=== PATIENT | male | born 1945 | race Caucasian/White ===

== ENCOUNTER → 2017-12-10 11:47 | Outpatient (BNVA) | payer OTHER, SELFPAY | PROVIDERS: PCP Family Medicine; Visit Provider Student in an Organized Health Care Education/Training Program | DX: I21.4 Non-ST elevation (NSTEMI) myocardial infarction (principal); F14.988 Cocaine use, unspecified with other cocaine-induced disorder; E11.9 Type 2 diabetes mellitus without complications; Z87.891 Personal history of nicotine dependence | CPT/HCPCS: 99213 ==

== ENCOUNTER 2017-12-16 00:44 | Outpatient (CLI) | payer OTHER, SELFPAY ==
--- NOTE | 2017-12-16 07:36 | DI.US_ITS ---
SYMPTOM/DIAGNOSIS: FORMER SMOKER, CAD, SCREENING FOR AAA, Z87.891, I25.10, Z13.6 AORTA ULTRASOUND: The maximal AP diameter of the aorta superiorly is 2.9 cm. and the transverse diameter is 2.9 cm. superiorly. The right iliac artery has an AP diameter of 1.2 cm. and a transverse diameter of 1.4 cm. The proximal left internal iliac artery has an AP diameter of 1.5 cm. and a transverse diameter of 1.2 cm. SUMMARY: There is no evidence of an aortic aneurysm.
== END 2017-12-16 01:04 ==
PROVIDERS: PCP Family Medicine; Visit Provider Student in an Organized Health Care Education/Training Program
DX: I25.10 Atherosclerotic heart disease of native coronary artery without angina pectoris (principal); Z13.6 Encounter for screening for cardiovascular disorders; Z87.891 Personal history of nicotine dependence
CPT/HCPCS: 76706

== ENCOUNTER 2018-02-26 16:14 | Outpatient (CLI) | payer OTHER, SELFPAY ==
--- NOTE | 2018-02-26 14:52 | DI.RAD_ITS ---
SYMPTOMS/DIAGNOSIS: COUGH, R05 PA AND LATERAL CHEST: The heart is not enlarged. The lungs appear clear. Diaphragm is elevated on the left, unchanged from 09/18/17. No pleural effusions seen. CONCLUSION: No evidence of acute disease.
== END 2018-02-26 16:34 ==
PROVIDERS: PCP Family Medicine; Visit Provider Nurse Practitioner
DX: R05 Cough (principal)
CPT/HCPCS: 71046

== ENCOUNTER 2018-04-22 11:19 | Outpatient (CLI) | payer OTHER, SELFPAY ==
--- NOTE | 2018-04-22 11:10 | DI.RAD_ITS ---
SYMPTOMS/DIAGNOSIS: PAIN BILATERAL KNEES: RIGHT KNEE: Medial and lateral compartment joint space narrowing, articular sclerosis, and periarticular hypertrophic spurring and evidence of chondrocalcinosis are seen. There is also prominent spurring involving the patellofemoral joint. There may be a very small joint effusion. SUMMARY: Severe DJD, right knee. LEFT KNEE: Severe DJD is demonstrated with marked narrowing of the medial joint compartment. There is articular sclerosis, and periarticular hypertrophic spurring and evidence of chondrocalcinosis. Also, prominent patellofemoral joint spurring is identified. Small calcifications superior to the patella on the left side could represent joint mice. SUMMARY: Severe DJD involving the left knee is identified.
== END 2018-04-22 11:39 ==
PROVIDERS: PCP Family Medicine; Referring Provider Family Medicine; Visit Provider Orthopaedic Surgery
DX: M25.561 Pain in right knee (principal); M25.562 Pain in left knee; M17.0 Bilateral primary osteoarthritis of knee
CPT/HCPCS: 20610; 99201; 99214; 73560; J1040

== ENCOUNTER → 2018-07-15 09:49 | Outpatient (BNVA) | payer OTHER, SELFPAY | PROVIDERS: PCP Family Medicine; Referring Provider Family Medicine; Visit Provider Orthopaedic Surgery | DX: M17.0 Bilateral primary osteoarthritis of knee (principal) | CPT/HCPCS: 99212; 99213 ==

== ENCOUNTER 2018-07-20 11:47 | Outpatient (REF) | payer OTHER, SELFPAY ==
[2018-07-20 18:45] LABS: Anion Gap 12.1 mmol/L (3-11); BUN 24 mg/dL (7-18); CO2 25.9 mmol/L (21.0-32.0); CREATININE 1.22 mg/dL (0.70-1.30); Calcium 9.9 mg/dL (8.5-10.1); Chloride 101 mmol/L (98-107); Estimated GFR 58.23 (mL/min/1.73m2); Glucose 51 mg/dL (70-100); Potassium 5.1 mmol/L (3.5-5.1); Sodium 139 mmol/L (136-145); TSH (W/Ref FT4) 3.04 uIU/mL (0.358-3.74)
== END 2018-07-20 12:07 ==
LOC: NCHCN 11:47
PROVIDERS: PCP Family Medicine; Visit Provider Family Medicine
DX: E11.21 Type 2 diabetes mellitus with diabetic nephropathy (principal); R94.6 Abnormal results of thyroid function studies
CPT/HCPCS: 80048; 84443

== ENCOUNTER 2018-08-09 11:09 | Emergency (ER) | payer OTHER, SELFPAY ==
[2018-08-09 11:15] VITALS: BP 154/73; PULSE 86; RESP 14; TEMP 36.5; O2SAT 97
--- NOTE | 2018-08-09 11:21 | DI.RAD_ITS ---
SYMPTOMS/DIAGNOSIS: POSSIBLE DISLOCATION LEFT SHOULDER: There are degenerative changes at the AC joint as well as spurring at the tip of the acromion. Degenerative changes are also noted at the glenohumeral joint. There is no evidence of fracture or dislocation. IMPRESSION: Degenerative changes. No acute abnormality.
--- NOTE | 2018-08-09 11:52 | W.ED.GENAD ---
Discharge Plan Disposition Patient Disposition: HOME Condition: Stable Discharge Details Chief Complaint: Orthopedic Clinical Impression: Rotator cuff injury, Shoulder pain Primary Care Provider: Simone Ratliff ED Provider: Jamel Jacobs Home Meds and New Rx's Prescriptions: No Action Bydureon BCise 2 mg/0.85 mL auto-injector 2 mg SC Q7D RF: 0 Spiriva with HandiHaler 18 mcg capsule, w/inhalation device 1 cap IH DAILY RF: 0 albuterol sulfate [ProAir HFA] 90 mcg/actuation HFA aerosol inhaler 2 puff IH Q6H PRNRF: 0 meloxicam [Mobic] 15 mg tablet 15 mg PO DAILY RF: 0 atorvastatin [Lipitor] 80 MG tablet 80 mg PO HS RF: 0 nitroglycerin [Nitrostat] 0.3 MG tablet, sublingual 0.3 mg Sublingual ONCE RF: 0 OneTouch Ultra Test 1 EACH strip 1 ea Miscellaneous DAILY RF: 0 aspirin 81 MG tablet,chewable 81 mg PO DAILY RF: 0 zolpidem 5 MG tablet 5 mg PO HS RF: 0 mirtazapine 15 MG tablet 15 mg PO HS RF: 0 NovoFine 30 1 EACH needle 1 ea Miscellaneous HS RF: 0 OneTouch Ultra Test 1 EACH strip 1 ea Miscellaneous RF: 0 lisinopril 2.5 mg tablet 5 mg PO DAILY RF: 0 venlafaxine 75 MG tablet 75 mg PO BID RF: 0 metformin [Glucophage] 1,000 MG tablet 1,000 mg PO BID RF: 0 glipizide 5 mg tablet 10 mg PO DAILY RF: 0 Levemir FlexTouch U-100 Insuln 100 unit/mL (3 mL) insulin pen 25 unit IJ DAILY RF: 0 Discharge Instructions Instructions: Shoulder Pain (ED) Additional Instructions: Please follow-up with your orthopedic doctor early this week return to the emergency department for weakness or increasing pain Referrals: Calvin Malcolm MD [ [facility] STAFF PHYSICIAN] - Medical Decision Making 72-year-old male with shoulder pain concerning for partial biceps tendon rupture versus rotator cuff tear. X-ray reviewed by me no fracture no dislocation. Will await for radiology read treat pain [id number] patient will follow-up with orthopedics in the next few days. HPI 72-year-old male past medical history of diabetes hypertension hyperlipidemia osteoarthritis presents with acute onset left shoulder pain while lifting up a wheelbarrow to dump it.patient has pain to his anterior glenoid and can only move his arm passively cannot actually flex his biceps or abducts or flex his shoulder.no fall no head injury no other trauma no previous injury to this shoulder. Past medical history of biceps tendon rupture on the right side pain is sharp acute radiating to his shoulder worse with active motion and abduction.no shortness of breath chest pain nausea vomiting diarrhea fever chills loss of consciousness or other complaint General Date/Time Provider Initiated Documentation: 08/09/18 11:21. Related Data Home Medications Medication Instructions Recorded Confirmed metformin [Glucophage] 1,000 mg PO BID 09/19/16 07/15/18 venlafaxine 75 mg PO BID 09/19/16 07/15/18 aspirin 81 mg PO DAILY tab-cap 01/22/17 07/15/18 atorvastatin [Lipitor] 80 mg PO HS tab-cap 01/22/17 07/15/18 blood sugar diagnostic [Onetouch strip 01/22/17 07/15/18 Ultra Test Strips] blood sugar diagnostic [Onetouch strip 01/22/17 07/15/18 Ultra Test Strips] mirtazapine 15 mg PO HS tab-cap 01/22/17 07/15/18 nitroglycerin [Nitrostat] 0.3 mg SUBLINGUAL ONCE tab-cap 01/22/17 07/15/18 pen needle, diabetic [Novofine] 01/22/17 07/15/18 zolpidem 5 mg PO HS 01/22/17 07/15/18 albuterol sulfate HFA 90 2 puff IH Q6H PRN 04/23/18 07/15/18 mcg/actuation aerosol inhaler exenatide ER 2 mg/0.85 mL 2 mg SC Q7D 04/23/18 07/15/18 subcutaneous auto-injector glipizide 5 mg tablet 10 mg PO DAILY tab 04/23/18 07/15/18 insulin detemir (U-100) 100 25 unit IJ DAILY ml 04/23/18 07/15/18 unit/mL (3 mL) subcutaneous pen lisinopril 2.5 mg tablet 5 mg PO DAILY tab-cap 04/23/18 07/15/18 tiotropium bromide 18 mcg capsule 1 cap IH DAILY 04/23/18 07/15/18 with inhalation device meloxicam 15 mg tablet 15 mg PO DAILY 07/15/18 07/15/18 Allergies Allergy/AdvReac Type Severity Reaction Status Date / Time No Known Allergies Allergy Unverified 08/09/18 11:17 General Stated Complaint: Orthopedic LOCO: 3 Review of Systems Review of Systems All systems reviewed & are unremarkable except as noted in HPI and below PFSH Surgical History Repair of inguinal hernia (02/25/17) Social History Smoking/Tobacco Use Status: Former Tobacco Use Drug use: Current Sobriety Do you feel safe at home: Yes Do you feel safe in your relationship?: Yes Exam Narrative Exam Narrative: Pulse oximetry reviewed by me and is normal [] Constitutional: Pt is in no acute distress. he is well appearing. he oriented to person, place, and time. Eyes: conjunctivae are normal. Pupils are equal, round, and reactive to light. No scleral icterus. extraocular muscles are intact Ears/Nose/Mouth/Throat: mucus membranes are moist. Musculoskeletal: neck is supple. normal range of motion in all extremities except for left shoulder patient unable to fully flex bicep or abductor or flex left shoulder. Normal distal neurovascular exam mild tenderness over anterior glenoid fossa. No deformity no crepitus. Cardiovascular: Normal rate and rhythm. No lower extremity edema [] Respiratory: effort is normal . pt exhibits no stridor or respiratory distress. [] GastrointestinaI: abdomen soft, +BS, nontender, -rebound, -guarding. Neurological: alert and oriented to person, place, and time. he has normal strength, no tremor. Skin: Skin is warm and dry. he is not diaphoretic. Distal perfusion in tact, warm extremities, cap refill ? 2 seconds. Hem/Lymph/Imm: No cervical LAD, no goiter, no conjunctival pallor Psych: normal mood and affect. behavior is normal Triage and nurse notes reviewed.[] Course Vital Signs Temperature 36.5 C 08/09/18 11:15 Pulse 86 08/09/18 11:15 Respiratory Rate 14 08/09/18 11:15 Blood Pressure 154/73 H 08/09/18 11:15 Pulse Oximetry 97 08/09/18 11:15 Temperature 36.5 C 08/09/18 11:15 Temperature Source Temporal Artery Scan 08/09/18 11:15 Pulse 86 08/09/18 11:15 Respiratory Rate 14 08/09/18 11:15 Respiratory Effort Non-Labored 08/09/18 11:16 Blood Pressure 154/73 H 08/09/18 11:15 Blood Pressure Position Sitting 08/09/18 11:15 Pulse Oximetry 97 08/09/18 11:15 Oxygen Delivery Method Room Air 08/09/18 11:15 Oxygen Flow Rate 0 08/09/18 11:15 Pain Level 8 08/09/18 11:15
--- NOTE | 2018-08-09 11:56 | ED.GENADUL_ITS ---
Discharge Plan Disposition Patient Disposition: HOME Condition: Stable Discharge Details Chief Complaint: Orthopedic Clinical Impression: Rotator cuff injury, Shoulder pain Primary Care Provider: Simone Ratliff ED Provider: Jamel Jacobs Home Meds and New Rx's Prescriptions: No Action Bydureon BCise 2 mg/0.85 mL auto-injector 2 mg SC Q7D RF: 0 Spiriva with HandiHaler 18 mcg capsule, w/inhalation device 1 cap IH DAILY RF: 0 albuterol sulfate [ProAir HFA] 90 mcg/actuation HFA aerosol inhaler 2 puff IH Q6H PRNRF: 0 meloxicam [Mobic] 15 mg tablet 15 mg PO DAILY RF: 0 atorvastatin [Lipitor] 80 MG tablet 80 mg PO HS RF: 0 nitroglycerin [Nitrostat] 0.3 MG tablet, sublingual 0.3 mg Sublingual ONCE RF: 0 OneTouch Ultra Test 1 EACH strip 1 ea Miscellaneous DAILY RF: 0 aspirin 81 MG tablet,chewable 81 mg PO DAILY RF: 0 zolpidem 5 MG tablet 5 mg PO HS RF: 0 mirtazapine 15 MG tablet 15 mg PO HS RF: 0 NovoFine 30 1 EACH needle 1 ea Miscellaneous HS RF: 0 OneTouch Ultra Test 1 EACH strip 1 ea Miscellaneous RF: 0 lisinopril 2.5 mg tablet 5 mg PO DAILY RF: 0 venlafaxine 75 MG tablet 75 mg PO BID RF: 0 metformin [Glucophage] 1,000 MG tablet 1,000 mg PO BID RF: 0 glipizide 5 mg tablet 10 mg PO DAILY RF: 0 Levemir FlexTouch U-100 Insuln 100 unit/mL (3 mL) insulin pen 25 unit IJ DAILY RF: 0 Discharge Instructions Instructions: Shoulder Pain (ED) Additional Instructions: Please follow-up with your orthopedic doctor early this week return to the emergency department for weakness or increasing pain Referrals: Calvin Malcolm MD [ [facility] STAFF PHYSICIAN] - Medical Decision Making 72-year-old male with shoulder pain concerning for partial biceps tendon rupture versus rotator cuff tear. X-ray reviewed by me no fracture no dislocation. Will await for radiology read treat pain [id number] patient will follow-up with orthopedics in the next few days. HPI 72-year-old male past medical history of diabetes hypertension hyperlipidemia osteoarthritis presents with acute onset left shoulder pain while lifting up a wheelbarrow to dump it.patient has pain to his anterior glenoid and can only move his arm passively cannot actually flex his biceps or abducts or flex his shoulder.no fall no head injury no other trauma no previous injury to this shoulder. Past medical history of biceps tendon rupture on the right side pain is sharp acute radiating to his shoulder worse with active motion and abdu ction.no shortness of breath chest pain nausea vomiting diarrhea fever chills loss of consciousness or other complaint General Date/Time Provider Initiated Documentation: 08/09/18 11:21 . Related Data Home Medications Medication Instructions Recorded Confirmed metformin [Glucophage] 1,000 mg PO BID 09/19/16 07/15/18 venlafaxine 75 mg PO BID 09/19/16 07/15/18 aspirin 81 mg PO DAILY tab-cap 01/22/17 07/15/18 atorvastatin [Lipitor] 80 mg PO HS tab-cap 01/22/17 07/15/18 blood sugar diagnostic [Onetouch strip 01/22/17 07/15/18 Ultra Test Strips] blood sugar diagnostic [Onetouch strip 01/22/17 07/15/18 Ultra Test Strips] mirtazapine 15 mg PO HS tab-cap 01/22/17 07/15/18 nitroglycerin [Nitrostat] 0.3 mg SUBLINGUAL ONCE tab-cap 01/22/17 07/15/18 pen needle, diabetic [Novofine] 01/22/17 07/15/18 zolpidem 5 mg PO HS 01/22/17 07/15/18 albuterol sulfate HFA 90 2 puff IH Q6H PRN 04/23/18 07/15/18 mcg/actuation aerosol inhaler exenatide ER 2 mg/0.85 mL 2 mg SC Q7D 04/23/18 07/15/18 subcutaneous auto-injector glipizide 5 mg tablet 10 mg PO DAILY tab 04/23/18 07/15/18 insulin detemir (U-100) 100 25 unit IJ DAILY ml 04/23/18 07/15/18 unit/mL (3 mL) subcutaneous pen lisinopril 2.5 mg tablet 5 mg PO DAILY tab-cap 04/23/18 07/15/18 tiotropium bromide 18 mcg capsule 1 cap IH DAILY 04/23/18 07/15/18 with inhalation device meloxicam 15 mg tablet 15 mg PO DAILY 07/15/18 07/15/18 Allergies Allergy/AdvReac Type Severity Reaction Status Date / Time No Known Allergies Allergy Unverified 08/09/18 11:17 General Stated Complaint: Orthopedic LOCO: 3 Review of Systems Review of Systems All systems reviewed & are unremarkable except as noted in HPI and below PFSH Surgical History Repair of inguinal hernia (02/25/17) Social History Smoking/Tobacco Use Status: Former Tobacco Use Drug use: Current Sobriety Do you feel safe at home: Yes Do you feel safe in your relationship?: Yes Exam Narrative Exam Narrative: Pulse oximetry reviewed by me and is normal [] Constitutional: Pt is in no acute distress. he is well appearing. he oriented to person, place, and time. Eyes: conjunctivae are normal. Pupils are equal, round, and reactive to light. No scleral icterus. extraocular muscles are intact Ears/Nose/Mouth/Throat: mucus membranes are moist. Musculoskeletal: neck is supple. normal range of motion in all extremities except for left shoulder patient unable to fully flex bicep or abductor or flex left shoulder. Normal distal neurovascular exam mild tenderness over anterior glenoid fossa. No deformity no crepitus. Cardiovascular: Normal rate and rhythm. No lower extremity edema [] Respiratory: effort is normal . pt exhibits no stridor or respiratory distress. [] GastrointestinaI: abdomen soft, +BS, nontender, -rebound, -guarding. Neurological: alert and oriented to person, place, and time. he has normal s trength, no tremor. Skin: Skin is warm and dry. he is not diaphoretic. Distal perfusion in tact, warm extremities, cap refill ? 2 seconds. Hem/Lymph/Imm: No cervical LAD, no goiter, no conjunctival pallor Psych: normal mood and affect. behavior is normal Triage and nurse notes reviewed.[] Course Vital Signs Temperature 36.5 C 08/09/18 11:15 Pulse 86 08/09/18 11:15 Respiratory Rate 14 08/09/18 11:15 Blood Pressure 154/73 H 05/12/19 11:15 Pulse Oximetry 97 08/09/18 11:15 Temperature 36.5 C 08/09/18 11:15 Temperature Source Temporal Artery Scan 08/09/18 11:15 Pulse 86 08/09/18 11:15 Respiratory Rate 14 08/09/18 11:15 Respiratory Effort Non-Labored 08/09/18 11:16 Blood Pressure 154/73 H 08/09/18 11:15 Blood Pressure Position Sitting 08/09/18 11:15 Pulse Oximetry 97 08/09/18 11:15 Oxygen Delivery Method Room Air 08/09/18 11:15 Oxygen Flow Rate 0 08/09/18 11:15 Pain Level 8 08/09/18 11:15
--- NOTE | 2018-08-09 12:15 | DI.VRAD_ITS ---
EXAM: XR Left Shoulder, Complete, 2 or More Views EXAM DATE/TIME: 08/09/2018 11:22 AM CLINICAL HISTORY: 72 years old, male; Left; Patient HX: Lifting injury, lt shoulder pain. ; Additional info: PT unable to do axillary view. TECHNIQUE: Imaging protocol: XR Left shoulder, complete 2 or more views. COMPARISON: No relevant prior studies available. FINDINGS: Bones/joints: Degenerative changes in the glenohumeral joint and acromioclavicular joint. There is no evidence of acute fracture.There is no evidence of malalignment or dislocation. Soft tissues: Normal. IMPRESSION: There is no evidence of acute fracture.There is no evidence of malalignment or dislocation. Dictated and Authenticated by: Shai Gonsales MD. Ordering:AMMON Mccullough MD
[2018-08-09 12:22] VITALS: BP 154/73; PULSE 86; RESP 14; TEMP 36.5; O2SAT 97
== END 2018-08-09 12:24 | disposition home or self-care (01) ==
PROVIDERS: Emergency Provider Emergency Medicine; PCP Family Medicine
DX: M75.102 Unspecified rotator cuff tear or rupture of left shoulder, not specified as traumatic (principal); X50.0XXA Overexertion from strenuous movement or load, initial encounter; E11.9 Type 2 diabetes mellitus without complications; I10 Essential (primary) hypertension; Z79.4 Long term (current) use of insulin
CPT/HCPCS: 99283; 73030; 99282; L3650

== ENCOUNTER → 2018-08-11 10:47 | Outpatient (BNVA) | payer OTHER, SELFPAY | PROVIDERS: PCP Family Medicine; Referring Provider Family Medicine; Visit Provider Orthopaedic Surgery | DX: S46.012A Strain of muscle(s) and tendon(s) of the rotator cuff of left shoulder, initial encounter (principal); M25.512 Pain in left shoulder; X50.0XXA Overexertion from strenuous movement or load, initial encounter | CPT/HCPCS: 20610; 99214; J1040 ==

== ENCOUNTER 2018-08-19 02:00 | Outpatient (CLI) | payer OTHER, SELFPAY ==
--- NOTE | 2018-08-19 14:00 | DI.MRI_ITS ---
SYMPTOM/DIAGNOSIS: LT SHOULDER INJURY, LT ROTATOR CUFF TEAR, PAIN, M75.102 LEFT SHOULDER MRI: Comparison is made with plain films dated 08/09/18. Proton density and fat suppressed T 2 axial and coronal and T 1 and fat suppressed T 2 sagittal sequences were performed. The exam is limited by patient motion. There is a full thickness tear of the supraspinatus tendon with retraction to the level of the AC joint. The humeral head is articulating with the undersurface of the acromion. There is muscle atrophy and some fatty infiltration of approximately 50%, consistent with a grade III Goutallier classification. There are degenerative changes at the AC joint as well as spurring at the tip of the acromion. The infraspinatus tendon also appears torn and retracted, also to the level of the AC joint. The teres minor,subscapularis and biceps tendons appear intact. The marrow signal appears normal. There is no significant joint effusion. IMPRESSION: Full thickness tears with retraction of the supraspinatus and infraspinatus tendons. There is muscle atrophy of the supraspinatus muscle.
== END 2018-08-19 02:20 ==
PROVIDERS: PCP Family Medicine; Visit Provider Physician Assistant
DX: M75.102 Unspecified rotator cuff tear or rupture of left shoulder, not specified as traumatic (principal); M25.512 Pain in left shoulder
CPT/HCPCS: 73221

== ENCOUNTER → 2018-08-25 09:46 | Outpatient (BNVA) | payer OTHER, SELFPAY | PROVIDERS: PCP Family Medicine; Referring Provider Family Medicine; Visit Provider Orthopaedic Surgery | DX: S46.012A Strain of muscle(s) and tendon(s) of the rotator cuff of left shoulder, initial encounter (principal); X50.0XXA Overexertion from strenuous movement or load, initial encounter; E11.42 Type 2 diabetes mellitus with diabetic polyneuropathy; Z79.4 Long term (current) use of insulin; J44.9 Chronic obstructive pulmonary disease, unspecified | CPT/HCPCS: 99212; 99213 ==

== ENCOUNTER 2018-09-01 07:54 | Outpatient (CLI) | payer OTHER, SELFPAY ==
--- NOTE | 2018-09-01 09:18 | W.PREOPHP ---
Assessment and Plan (1) Tear of left rotator cuff: Current visit: No Status: Acute Plan: Educated patient on surgery covering surgical technique, recovery process, benefits and risks including but not limited to risk of infection, blood clot, damage to soft tissue/blood vessels/nerves in detail. After discussion patient gives verbal understanding of risks and elects to proceed with scheduling surgery. Patient had opportunity to have questions answered to their satisfaction. They will contact office if issues arise. Patient will continue to be scheduled for left rotator cuff repair with Dr. Malcolm. Qualifiers: Rotator cuff tear extent: unspecified tear extent Rotator cuff tear trauma status: traumatic Encounter type: initial encounter Qualified Code(s): S46.012A - Strain of muscle(s) and tendon(s) of the rotator cuff of left shoulder, initial encounter History of Present Illness Narrative: Mr. Patterson is a 72-year-old [id number] male who presents to clinic for preoperative appointment for scheduled left rotator cuff repair with Dr. Malcolm on 09/07/2018. Patient has been seen in orthopedic clinic several times following his left shoulder injury on 08/09/2018. He describes injury as occurring when he emptied a wheelbarrow with both his arms up and away from body motion, while completing this motion he felt a pop within his left shoulder. Patient received a subacromial injection on 08/11/2018 which provided significant pain relief until approximately 1 week ago when he started to have recurrence of shoulder discomfort that radiated down his arm. In addition to redevelopment of discomfort he has continued to have notable weakness. Patient reports driving a car as he is unable to lift his arm to the top of the steering wheel. Patient reports he occasionally have a sharp intense pain on the anterior aspect of the shoulder but occurs suddenly with certain motions. Patient denies known aggravating factors. Although patient has continued to be active including raking in his garden he is been avoiding lifting activities with the left arm. Patient denies use of [id number] pain medications, heat/ice application or massage. Patient underwent MRI which showed full-thickness tear and retraction of supraspinatus and infraspinatus tendons as per Dr. aYp's note on 08/19/18. Due to patient's continued discomfort as well as pain Dr. Malcolm offered rotator cuff repair and patient elected to proceed with surgical intervention. Pertinent Surgical Information Review of patient's chart does show history of non-STEMI in the setting of cocaine use in 2017. Patient reports since that time he has not used cocaine. Review of patient's cardiology note with Dr. Mendez on 12/10/2017 describes patient's episode in 2017 as patient experienced near syncope after he smoked cocaine. Since that time cardiology note from visit on 12/10/2017 states that patient went under cardiac catheterization which showed moderate coronary artery disease and echo was normal. Dr. Mendez recommended patient continue with aspirin 81 mg and atorvastatin 80 mg as well as continue with regularly scheduled yearly cardiology follow-up. Patient denies any recurrence of cardiac symptoms including syncope, chest pain, rapid/slow/irregular heartbeat. Patient does have history of DVT following open left knee surgery as a young adult estimated around 1970s. Denies any additional DVT episodes or required anticoagulation; he continues to take ASA 81 mg following non-STEMI in 2017. Patient has also undergone surgery including inguinal hernia in 2017 without any post-operative issues. Denies past medical history of: stroke, angina, asthma, sleep apnea, renal issues, gastrointestinal issues, ulcers, bleeding disorders, seizures, migraines, anxiety, autoimmune disorders, thyroid issues Denies prior complications from anesthesia. Review of Systems Constitutional Denies fever(s), Denies frequent falls and Denies headache(s) Eyes Denies change in vision ENT Denies dizziness, Denies ear discharge, Denies headache(s), Denies epistaxis, Denies nasal discharge and Denies sore throat Cardiovascular Denies chest pain, Denies rapid heart rate, Denies irregular heart rhythm, Denies dyspnea, Denies dyspnea on exertion and Denies slow heart rate Respiratory Denies cough, Denies dyspnea, Denies dyspnea on exertion and Denies wheezing Gastrointestinal Denies abdominal pain, Denies melena, Denies hematochezia, Denies constipation, Denies diarrhea, Denies nausea and Denies vomiting Genitourinary Denies hematuria, Denies dysuria and Denies urinary urgency Musculoskeletal Reports as per HPI, Denies numbness and Denies tingling Neurologic Denies dizziness, Denies frequent falls, Denies headache(s), Denies numbness and Denies tingling Allergic/Immunologic Denies wheezing PFSH Medical History Cervical radiculopathy at C8 (Chronic) Diabetic polyneuropathy associated with type 2 diabetes mellitus (Acute 02/11/17) Bilateral foot-drop (Acute 02/11/17) Tear of left rotator cuff (Acute 08/09/18) Hx of hepatitis (Acute) Insomnia (Chronic) History of venous thromboembolism (Acute) Coronary artery disease (Chronic) Narcotic abuse (Chronic) Mitral regurgitation (Chronic) Myocardial infarction (Chronic) COPD (chronic obstructive pulmonary disease) (Chronic) High cholesterol (Chronic) Diabetes mellitus (Chronic) Depression (Chronic) Surgical History History of umbilical hernia repair (Acute) History of knee surgery (Chronic) History of cardiac catheterization (Chronic) Repair of inguinal hernia (02/25/17) Social History Smoking/Tobacco Use Status: Former Tobacco Use Tobacco: How many years used: 20 Alcohol Intake: former Drug use: Current Sobriety Substance use type: crack/cocaine Details: Quit smoking 1997, states last used cocaine 09/18/16 after 10yr sober Do you feel safe at home: Yes Do you feel safe in your relationship?: Yes Meds Home Medications Medication Instructions Recorded Confirmed Type metformin [Glucophage] 1,000 mg PO BID 09/19/16 09/01/18 History aspirin 81 mg PO DAILY tab-cap 01/22/17 09/01/18 History atorvastatin [Lipitor] 80 mg PO HS tab-cap 01/22/17 09/01/18 History blood sugar diagnostic [Onetouch strip 01/22/17 08/25/18 History Ultra Test Strips] blood sugar diagnostic [Onetouch strip 01/22/17 08/25/18 History Ultra Test Strips] mirtazapine 15 mg PO HS tab-cap 01/22/17 09/01/18 History nitroglycerin [Nitrostat] 0.3 mg SUBLINGUAL ONCE tab-cap 01/22/17 08/25/18 History pen needle, diabetic [Novofine] 01/22/17 08/25/18 History zolpidem 5 mg PO HS 01/22/17 09/01/18 History albuterol sulfate HFA 90 2 puff IH Q6H PRN 04/23/18 09/01/18 History mcg/actuation aerosol inhaler glipizide 5 mg tablet 10 mg PO DAILY tab 04/23/18 09/01/18 History insulin detemir (U-100) 100 30 unit IJ HS ml 04/23/18 09/01/18 History unit/mL (3 mL) subcutaneous pen lisinopril 2.5 mg tablet 5 mg PO DAILY tab-cap 04/23/18 09/01/18 History tiotropium bromide 18 mcg capsule 1 cap IH DAILY 04/23/18 09/01/18 History with inhalation device meloxicam 15 mg tablet 15 mg PO DAILY 07/15/18 09/01/18 History Allergies Allergy/AdvReac Type Severity Reaction Status Date / Time No Known Allergies Allergy Unverified 09/01/18 13:56 Exam Const General: cooperative and no acute distress [facility] Head: normal to inspection, normocephalic and atraumatic Ears: external ears normal General nose exam: external nose normal and no nasal discharge Face and sinus: face symmetric Mouth: oral mucosae normal, lip normal, tongue normal and moist mucous membranes Teeth and gingiva: fair dentition Throat: posterior oropharynx normal Eyes General: appearance normal, both eyes and all related structures Pupils: PERRL EOM: EOM intact bilaterally Neck Neck: trachea midline Carotids: normal carotid upstroke Lymphatic: no lymphadenopathy noted Resp Effort & Inspection: normal respiratory effort and able to speak in complete sentences Auscultation: clear to auscultation bilaterally, no rales, no rhonchi and no wheezes Cardio Heart Sounds: S1 normal and S2 normal Pulses: radial pulses present bilaterally Other: No murmur was appreciated by provider at today's visit, however patient's chart does state history of mitral regurgitation GI Palpation: soft, no hepatosplenomegaly and nontender Auscultation: normal bowel sounds Skin General skin exam: no rashes or lesions noted
== END 2018-09-01 08:14 ==
PROVIDERS: PCP Family Medicine; Visit Provider Orthopaedic Surgery
DX: S46.012A Strain of muscle(s) and tendon(s) of the rotator cuff of left shoulder, initial encounter (principal); Z01.818 Encounter for other preprocedural examination; J44.9 Chronic obstructive pulmonary disease, unspecified; E11.9 Type 2 diabetes mellitus without complications; X50.0XXA Overexertion from strenuous movement or load, initial encounter
CPT/HCPCS: NC

== ENCOUNTER 2018-09-07 12:50 | Observation (INO) | payer OTHER, SELFPAY ==
[2018-09-01 08:17] VITALS: BP 132/78; PULSE 64; RESP 17; TEMP 36.4; O2SAT 98
[2018-09-07] VITALS (10 sets, daily range): BP systolic 88–148; BP diastolic 51–82; PULSE 56–86; RESP 15–18; TEMP 35.8–37; O2SAT 92–98
[2018-09-07] MEDS: Lactated Ringers 1,000 ML 80 ML IV ×2 (09:44→11:10)
[2018-09-07] MEDS: Bupivacaine LIPOSOME/PF 133 MG/10 ML VIAL IJ (10:25)
[2018-09-07] MEDS: ceFAZolin 2 GM/50 ML BAG IVPB (11:15)
[2018-09-07] MEDS: Docusate Sodium 100 MG CAP PO ×2 (15:21→20:11)
[2018-09-07] MEDS: Normal Saline 1,000 ML 125 ML IV (15:21)
[2018-09-07] MEDS: metFORMIN 500 MG TAB 1000 MG PO (17:03)
[2018-09-07] MEDS: Normal Saline Flush 10 ML SYR IV (17:04)
[2018-09-07] MEDS: Bupivacaine 0.5% Pres-Free 30 ML VIAL (17:35)
[2018-09-07] MEDS: oxyCODONE-CR 10 MG TABCR PO (20:11)
[2018-09-07] MEDS: Mirtazapine 15 MG TAB PO (22:05)
[2018-09-07] MEDS: Zolpidem 5 MG TAB PO (22:05)
[2018-09-07] MEDS: Atorvastatin 40 MG TAB 80 MG PO (22:05)
[2018-09-07] MEDS: Ketorolac 15 MG/ML VIAL IVP (23:25)
[2018-09-08 04:20] VITALS: BP 119/77; PULSE 72; RESP 16; TEMP 36.4; O2SAT 95
[2018-09-08] MEDS: Normal Saline 1,000 ML 60 ML IV (05:24)
[2018-09-08] MEDS: Ketorolac 15 MG/ML VIAL IVP ×2 (05:50→12:11)
[2018-09-08] MEDS: Normal Saline Flush 10 ML SYR IV ×2 (06:25→12:11)
[2018-09-08 07:15] VITALS: BP 135/77; PULSE 66; RESP 20; TEMP 37; O2SAT 96
[2018-09-08] MEDS: oxyCODONE-CR 10 MG TABCR PO (07:39)
[2018-09-08] MEDS: Pantoprazole 40 MG TABCR PO (07:39)
[2018-09-08] MEDS: metFORMIN 500 MG TAB 1000 MG PO (07:39)
[2018-09-08] MEDS: Lisinopril 5 MG TAB PO (07:40)
[2018-09-08] MEDS: Aspirin 81 MG CHEW PO (07:40)
[2018-09-08] MEDS: HYDROcodone 5/Acetaminophen 325 TAB PO ×2 (07:40→13:40)
[2018-09-08] MEDS: glipiZIDE 5 MG TAB 10 MG PO (07:41)
[2018-09-08] MEDS: Docusate Sodium 100 MG CAP PO ×2 (07:41→13:40)
--- NOTE | 2018-09-08 09:41 | ROE_ITS ---
DATE OF PROCEDURE: September 07, 2018 PREOPERATIVE DIAGNOSIS: Torn rotator cuff, left; bicipital tendonitis. POSTOPERATIVE DIAGNOSIS: Same. PROCEDURE: 1. Repair of large tear rotator cuff, left. 2. Tenodesis long head of biceps tendon. ANESTHESIA: General and scalene nerve block by Michael Lopez CRNA SURGEON: Calvin Malcolm M.D. SAMPLER RADIOACTIVE WASTE: Kristie Ordoñez INDICATIONS: This is a 72-year-old white male who injured his left shoulder on 08/09/18 while emptyin g a wheelbarrow. He had immediate pain and felt a pop in his left shoulder. Subsequent to this he h ad noticeable weakness and basically pseudo paralysis of his left shoulder. MRI scan was obtained, w hich showed a full-thickness tear and retraction of the supraspinatus and infraspinatus tendons. Rot ator cuff repair was recommended as optimum treatment to alleviate his pain and restore useful functi on to his left shoulder. The risks and complications of the procedure were explained to the patient in detail preoperatively. PROCEDURE: The patient was taken Operating Room on 09/07/18. He was placed supine on the operating t able. A scalene nerve block was performed. Once good block was performed, a general anesthetic was then administered. He was placed in the morataya chair position. The left shoulder was prepped and dr aped free in the usual sterile fashion. An incision was made on the superior aspect of the shoulder beginning over the distal clavicle, exten ding to the anterolateral corner of the acromion and then extending 3 cm to 4 cm distal to the acromi on. The incision was carried down to the fascia. The deltoid muscle was incised at the anterolatera l corner of the acromion and the incision of the deltoid muscle was continued distally about 3 cm. W hen the inferior fascia of the deltoid was incised, there was an outpouring of joint fluid, consisten t with a full-thickness tear. The anterior deltoid was then sharply reflected off the anterior acrom ion. The coracoacromial ligament was calcified and was removed with a rongeur. A limited acromiopla sty was then performed with a rongeur to improve exposure. The deltoid was then sharply reflected of f the anterior distal clavicle as well. There was hypertrophic spurring of the bursal side of the cl avicle and this extra bone was removed with an osteotome and a mallet, followed by a pituitary rongeu r. This decompressed completely the subacromial space. The rotator cuff was avulsed in one piece, beginning at the bicipital groove anteriorly and extending posteriorly probably 5 cm. It was a very large tear. However the quality of the rotator cuff tendo n appeared to be good. I placed traction sutures of #1 Vicryl suture material through the leading ed ge of the rotator cuff tear. I then mobilized the rotator cuff by applying traction to the sutures a nd then using a Nguyen elevator on both the bursal side and the articular side of the rotator cuff. Th e biceps tendon was inspected; it was markedly frayed and obviously diseased. The biceps was then re leased sharply from the labrum and was tenodesed in the bicipital groove with interrupted #1 Vicryl s utures. The footprint of the rotator cuff on the tuberosity was then freshened with a rongeur and a nasal rasp so that there was fresh bleeding bone to reattach the tendon. I placed three suture anch ors evenly spaced starting just posterior to the bicipital groove and then evenly spaced the three al isael the humeral head just lateral to the articular margin. The sutures from the suture anchors were then passed through the leading edge of the rotator cuff tendon in a horizontal mattress fashion. Th e sutures were then individually tied, securing the medial row of a planned double-row repair. I the n chose appropriate sutures from the ones that were tied, passed those suture ends through VERSALOK a nchors and two VERSALOK anchors were then deployed further laterally on the humeral shaft, completing a double-row repair. The repair of the rotator cuff was done without tension; the left arm could be brought to the side at the conclusion of the repair, and the repair appeared to be quite water-tight . At this point the wound was irrigated with Betadine and saline solution. The wound margins were infiltrated with 0.5% Marcaine with an epinephrine solution. Good hemostasis was obtained and closur e was begun. Three drill holes were then placed through the anterior acromion and sutures of #2 FiberWire were pas sed through the drill holes and through the full-thickness of the deltoid muscle. The sutures were p assed in a [id number] fashion. The sutures were then tied, securing the anterior deltoid to the acromion. Further medially the AC joint capsule and periosteum over the clavicle were approximated to the reflected deltoid muscle with interrupted [id number]-[id number] sutures of #1 Vicryl suture material . The deltoid fascia was then over-sewn to the periosteum over the acromion with interrupted figure- of-eight sutures of #1 Vicryl suture material to provide an additional repair of the deltoid. The la teral deltoid muscle split was repaired with interrupted [id number]-[id number]-ffohy sutures of #1 Vicryl suture material. The subcu was approximated with interrupted #2-0 Vicryl sutures and the skin edges approxi mated with skin dolores. Sterile dressings were applied, followed by a light pressure dressing to th e left shoulder. The left upper extremity was then placed in a sling/abduction pillow orthosis to pr otect the rotator cuff repair. The patient's anesthesia was reversed without complications. Estimat ed blood loss was 30 cc's. The patient was discharged to recovery in good condition. The patient wi ll be admitted for pain control and overnight observation due to the extensive nature of the repair.
[2018-09-08 11:05] VITALS: BP 109/63; PULSE 78; RESP 19; TEMP 36.9; O2SAT 95
--- NOTE | 2018-09-08 13:44 | W.PM.DS.N ---
Date of service: 09/08/18 Time of Service: 13:44 Discharge Plan Disposition Patient Disposition: HOME Condition: Good Discharge Details Reason For Visit: POST-OP L ROTATOR CUFF REPAIR Admit Date/Time: 09/07/18 12:50 Admit Provider: Calvin Malcolm Attending Provider: Calvin Malcolm [facility]: The patient was admitted post-op for pain control. He experienced rebound pain when his scalene block wore off at 4 Chandan 09/08/18. By 1 PM his pain was managable with just PO pain meds. He was eating and drinking well. I thought he could be discharged home. Home Meds and New Rx's Prescriptions: New oxycodone-acetaminophen 5-325 mg tablet 1 tab PO Q4H PRN (Reason: pain) Qty: 20 RF: 0 Continued Spiriva with HandiHaler 18 mcg capsule, w/inhalation device 1 cap IH DAILY RF: 0 albuterol sulfate [ProAir HFA] 90 mcg/actuation HFA aerosol inhaler 2 puff IH Q6H PRNRF: 0 meloxicam [Mobic] 15 mg tablet 15 mg PO DAILY RF: 0 atorvastatin [Lipitor] 80 MG tablet 80 mg PO HS RF: 0 nitroglycerin [Nitrostat] 0.3 MG tablet, sublingual 0.3 mg Sublingual ONCE RF: 0 OneTouch Ultra Test 1 EACH strip 1 ea Miscellaneous DAILY RF: 0 aspirin 81 MG tablet,chewable 81 mg PO DAILY RF: 0 zolpidem 5 MG tablet 5 mg PO HS RF: 0 mirtazapine 15 MG tablet 15 mg PO HS RF: 0 NovoFine 30 1 EACH needle 1 ea Miscellaneous HS RF: 0 OneTouch Ultra Test 1 EACH strip 1 ea Miscellaneous RF: 0 lisinopril 2.5 mg tablet 5 mg PO DAILY RF: 0 Spiriva with HandiHaler 18 mcg Capsule, W/Inhalation Device 1 cap INHALATION DAILY RF: 0 metformin [Glucophage] 1,000 MG tablet 1,000 mg PO BID RF: 0 glipizide 5 mg tablet 10 mg PO DAILY RF: 0 Levemir FlexTouch U-100 Insuln 100 unit/mL (3 mL) insulin pen 30 unit IJ HS RF: 0 Discharge Instructions Additional Instructions: Apply cryocuff to L shoulder 4-6 times/day for 1 hour each time. Sleep in recliner or propped up by pillows in bed. May remove dressings, shower, and get dolores wet after 48 hours from now. Pat dolores dry after showering and cover with light gauze so the dolores don't catch on your shirts. Leave sling/pillow on at all times, even to sleep. Remove to shower and dress. Keep L arm at side when out of sling. Don't reach away from body with L arm so you don't stress the rotator cuff repair. Follow up with in 2 weeks. Take tylenol or ibuprofen for mild pain. Take oxycodone for breakthru pain, if needed. Referrals: Calvin Malcolm MD [ [facility]YSICIAN] - (f/u in 2 weeks.) Activity:: Activity as Tolerated Equipment/Supplies:: sling/pillow orthosis Diet:: As Tolerated Discharge Orders Discharge Orders: Discharge Order (Routine); Ordered 09/08/18 Ordered By: Calvin Malcolm DS: Data Vitals/I&O Vitals and I&O: Vital Signs Temperature 36.9 C 09/08/18 11:05 Temperature Source Tympanic 09/08/18 11:05 Pulse 78 09/08/18 11:05 Pulse Rhythm Regular 09/08/18 07:35 Respiratory Rate 19 09/08/18 11:05 Respiratory Effort Non-Labored 09/08/18 07:35 Respiratory Depth Normal 09/08/18 07:35 Respiratory Pattern Normal 09/08/18 07:35 Blood Pressure 109/63 09/08/18 11:05 Pulse Oximetry 95 09/08/18 11:05 Respiratory End-tidal CO2 31 09/07/18 14:00 Oxygen Delivery Method Room Air 09/08/18 11:05 Oxygen Flow Rate 0 09/08/18 11:05 Pain Level 4 09/08/18 13:40 Intake & Output 09/07/18 09/08/18 09/08/18 23:59 11:59 23:59 Intake Total 1560.833 / 2610.833 1083 / 1323 240 / 1323 Output Total 825 / 825 650 / 650 Balance 735.833 / 1785.833 433 / 673 240 / 673 Intake: IV 1320.833 / 2370.833 963 / 963 Oral 240 / 240 120 / 360 240 / 360 Output: Urine 800 / 800 650 / 650 Estimated Blood Loss Other: Urine Color Yellow Yellow Urine Appearance Clear Clear Comment TV times two. Emesis Description None Voiding Methods Toilet Urinal PFSH Social History Smoking/Tobacco Use Status: Former Tobacco Use Tobacco: How many years used: 20 Alcohol Intake: former Drug use: Current Sobriety Substance use type: crack/cocaine Details: Quit smoking 1997, states last used cocaine 09/18/16 after 10yr sober Do you feel safe at home: Yes Do you feel safe in your relationship?: Yes
--- NOTE | 2018-09-08 16:30 | PDOC.CMPRO ---
- If Service Date Differs Date of service: 09/08/18 Time of Service: 16:30 Care Management Progress Note S/o: CM met with Simone in the room he is up and dressed ready for discharge. He lives with his spouse Caroline in [place], [place]. He states he is independent, he does not feel he need any additional services at time of discharge. He does report that he has support at home and that he understands his discharge instructions. He is being transported home today by his spouse. He has an appointment to follow up with in two weeks. A: Simone is an observation patient admitted status post l rotator cuff repair. P: Simone is being discharged home today, he denies any additional needs, he understands his discharge plan of care.
--- NOTE | 2018-09-08 16:37 | CMPROGNOTE_ITS ---
- If Service Date Differs Date of service: 09/08/18 Time of Service: 16:30 Care Management Progress Note S/o: CM met with Simone in the room he is up and dressed ready for discharge. He lives with his spouse Caroline in [place], [place]. He states he is independent, he does not feel he need any additional services at time of discharge. He does report that he has support at home and that he understands his discharge instructions. He is being transported home today by his spouse. He has an appo intment to follow up with in two weeks. A: Simone is an observation patient admitted status post l rotator cuff repair. P: Simone is being discharged home today, he denies any additional needs, he understands his discharge plan of care.
== END 2018-09-08 14:40 | disposition home or self-care (01) ==
LOC: MS 14:31
PROVIDERS: Admitting Provider Orthopaedic Surgery; PCP Family Medicine; Visit Provider Orthopaedic Surgery
PROC: 0LM20ZZ Reattachment of Left Shoulder Tendon, Open Approach (ICD-10-PCS; CPT 23430; principal; 2018-09-07 10:15)
DX: G89.18 Other acute postprocedural pain (principal); S46.012A Strain of muscle(s) and tendon(s) of the rotator cuff of left shoulder, initial encounter; X50.0XXA Overexertion from strenuous movement or load, initial encounter; I25.2 Old myocardial infarction; Z86.718 Personal history of other venous thrombosis and embolism; E11.42 Type 2 diabetes mellitus with diabetic polyneuropathy; I25.10 Atherosclerotic heart disease of native coronary artery without angina pectoris; J44.9 Chronic obstructive pulmonary disease, unspecified; Z87.891 Personal history of nicotine dependence
CPT/HCPCS: 23430; 23410; 23130; C1713; NC; G0378; J0690; J1100; J1885; J2250; J2405; J3490; L3670

== ENCOUNTER 2018-09-22 10:04 | Outpatient (CLI) | payer OTHER, SELFPAY ==
--- NOTE | 2018-09-22 09:53 | DI.RAD_ITS ---
SYMPTOM/DIAGNOSIS: F/U ROTATOR CUFF REPAIR LEFT SHOULDER: Comparison is made with 09 Aug 2018. Metallic anchors are now present in the humeral head. A declivity is again seen at the superior portion of the humeral head. There is a linear calcification above the humeral head which could represent tendon calcification. Degenerative changes are seen at the AC joint and glenohumeral joint. IMPRESSION: Status post rotator cuff repair.
== END 2018-09-22 10:24 ==
PROVIDERS: PCP Family Medicine; Referring Provider Family Medicine; Visit Provider Orthopaedic Surgery
DX: S46.012A Strain of muscle(s) and tendon(s) of the rotator cuff of left shoulder, initial encounter (principal); X58.XXXA Exposure to other specified factors, initial encounter; J44.9 Chronic obstructive pulmonary disease, unspecified; E11.9 Type 2 diabetes mellitus without complications
CPT/HCPCS: 73020

== ENCOUNTER → 2018-10-20 09:18 | Outpatient (BNVA) | payer OTHER, SELFPAY | PROVIDERS: PCP Family Medicine; Referring Provider Family Medicine; Visit Provider Orthopaedic Surgery | DX: Z47.89 Encounter for other orthopedic aftercare (principal); Z87.828 Personal history of other (healed) physical injury and trauma; J44.9 Chronic obstructive pulmonary disease, unspecified; E11.42 Type 2 diabetes mellitus with diabetic polyneuropathy ==

== ENCOUNTER 2018-11-10 01:36 | Outpatient (CLI) | payer OTHER, SELFPAY ==
--- NOTE | 2018-11-10 14:00 | MERGE_ITS ---
*[facility]* *[facility]* [address] [place] [address] Date of study: 11/10/2018 Transthoracic Echocardiography M-mode, complete 2D, complete spectral Doppler, and color Doppler *STUDY CONCLUSIONS* Summary: 1. Left ventricle: The cavity size was normal. There was mild asymmetric hypertrophy of the septum. Systolic function was normal. The estimated ejection fraction was 60-65%. Wall motion was normal; there were no regional wall motion abnormalities. 2. Aortic valve: Trileaflet; normal thickness leaflets. 3. Aorta: The aorta was moderately dilated. Aortic root dimension: 3.9cm (ED). Ascending aortic diameter: 4.4cm (S). 4. Right ventricle: The cavity size was normal. Wall thickness was normal. Systolic function was normal. *PATIENT PRESENTATION* Height: 180.3cm (71in ) S/D Pressure: 134 / 84 Weight: 86.2kg (189.6lb ) BSA: 2.09m^2 Test start time: 02:05 PM. Test stop time: 02:55 PM. PERFORMING Unknown CONSULTING Won Mendez ORDERING Wno Mendez REFERRING Won Mendez PERFORMING [facility] [employer] RT Leandro Kim)(ELVIE)LUIS ENRIQUE *PROCEDURE DATA* Procedure information: The patient was identified by two identifiers. This study was interpreted by [facility]. Pertinent images and digital data are archived for permanent storage and are available for subsequent review. No prior study was available for comparison. Study status: Routine. Transthoracic echocardiography. M-mode, complete 2D, complete spectral Doppler, and color Doppler. A Transthoracic Echocardiogram was performed. Scanning was performed from the parasternal, apical, subcostal, and suprasternal notch acoustic windows. Images were obtained using an [id number] cardiac ultrasound machine. Image quality was adequate. Study completion: The patient tolerated the procedure well. There were no complications. History: PMH: Aortic dilation. I77.810, aortic [id number] *CARDIAC ANATOMY* Left ventricle: The cavity size was normal. There was mild asymmetric hypertrophy of the septum. Systolic function was normal. The estimated ejection fraction was 60-65%. Wall motion was normal; there were no regional wall motion abnormalities. Diastolic parameters were normal. Aortic valve: Trileaflet; normal thickness leaflets. Mobility was not restricted. Doppler: Transvalvular velocity was within the normal range. There was no stenosis. There was no significant regurgitation. VTI ratio of LVOT to aortic valve: 0.95. Valve area (VTI): 3.1cm^2. Indexed valve area (VTI): 1.5cm^2/m^2. Peak velocity ratio of LVOT to aortic valve: 0.75. Valve area (Vmax): 2.4cm^2. Indexed valve area (Vmax): 1.2cm^2/m^2. Mean velocity ratio of LVOT to aortic valve: 0.77. Valve area (Vmean): 2.5cm^2. Indexed valve area (Vmean): 1.2cm^2/m^2. Mean gradient (S): 3.2mm Hg. Peak gradient (S): 6.7mm Hg. Aorta: The aorta was moderately dilated. Aortic root: The aortic root was mildly dilated. Ascending aorta: The ascending aorta was moderately dilated. Mitral valve: Structurally normal valve. Mobility was not restricted. Doppler: Transvalvular velocity was within the normal range. There was no evidence for stenosis. There was trivial regurgitation. Valve area by pressure half-time: 4.1cm^2. Indexed valve area by pressure half-time: 1.9cm^2/m^2. Peak gradient (D): 3.3mm Hg. Left atrium: The atrium was normal in size. Right ventricle: The cavity size was normal. Wall thickness was normal. Systolic function was normal. Pulmonic valve: Structurally normal valve. Doppler: Transvalvular velocity was within the normal range. There was no evidence for stenosis. There was no significant regurgitation. Peak gradient (S): 4mm Hg. Tricuspid valve: Structurally normal valve. Doppler: Transvalvular velocity was within the normal range. There was no evidence for stenosis. There was mild regurgitation. Pulmonary artery: Pulmonary systolic pressure was within the normal range, in the range of 30mm Hg to 35mm Hg. Right atrium: The atrium was normal in size. Pericardium: There was no pericardial effusion. Systemic veins: Inferior vena cava: Well visualized. The vessel was patent and normal in size. The respirophasic diameter changes were in the normal range (greater than or equal to 50%). Baseline ECG: Normal sinus rhythm. Measurements Left ventricle Value Reference LV ID, ED, PLAX 4.7 cm 3.5 - 6.0 LV ID, ES, PLAX 3.2 cm 2.1 - 4.0 LV PW thickness, ED, PLAX 1.0 cm LV end-diastolic volume, 1-p A2C 73 ml LV ejection fraction, 1-p A2C 68 % LV end-diastolic volume, 1-p A4C 79 ml LV ejection fraction, 1-p A4C 62 % LV e', lateral 0.104 m/sec LV E/e', lateral 9 LV e', medial 0.078 m/sec LV E/e', medial 12 LV e', average 0.091 m/sec LV E/e', average 10 Ventricular septum Value Reference IVS thickness, ED, PLAX 1.3 cm LVOT Value Reference LVOT ID, A-P 2.0 cm LVOT area 3.2 cm^2 LVOT peak velocity, S 0.97 m/sec LVOT mean velocity, S 0.65 m/sec LVOT VTI, S 21.9 cm LVOT peak gradient, S 3.7 mm Hg LVOT mean gradient, S 2 mm Hg Stroke volume (SV), LVOT DP 71 ml Stroke index (SV/bsa), LVOT DP 34 ml/m^2 Aortic valve Value Reference Aortic valve peak velocity, S 1.3 m/sec Aortic valve mean velocity, S 0.8 m/sec Aortic valve VTI, S 23.0 cm Aortic mean gradient, S 3.2 mm Hg Aortic peak gradient, S 6.7 mm Hg VTI ratio, LVOT/AV 0.95 Aortic valve area, VTI 3.1 cm^2 Velocity ratio, peak, LVOT/AV 0.75 Aortic valve area, peak velocity 2.4 cm^2 Velocity ratio, mean, LVOT/AV 0.77 Aortic valve area, mean velocity 2.5 cm^2 Aortic valve area/bsa, mean velocity 1.2 cm^2/m^2 Aorta Value Reference Aortic root ID, ED 3.9 cm Ascending aorta ID, A-P, S 4.4 cm Left atrium Value Reference LA ID, A-P, ES 3.4 cm LA ID/bsa, A-P 1.6 cm/m^2 <=2.2 LA volume/bsa, ES, 1-p A4C 33 ml/m^2 LA volume, ES, 2-p 67 ml LA volume/bsa, ES, 2-p 32 ml/m^2 LA/aortic root ratio 0.87 Mitral valve Value Reference Mitral E-wave peak velocity 0.9 m/sec Mitral A-wave peak velocity 1.09 m/sec Mitral deceleration time 187 ms 150 - 230 Mitral pressure half-time 54 ms Mitral peak gradient, D 3.3 mm Hg Mitral E/A ratio, peak 0.83 Mitral valve area, PHT, DP 4.1 cm^2 Pulmonary veins Value Reference Pulmonary vein peak velocity, S 0.8 m/sec Pulmonary vein peak velocity, D 0.66 m/sec Pulmonary vein velocity ratio, peak, 1.22 S/D Tricuspid valve Value Reference Tricuspid regurg peak velocity 2.7 m/sec Tricuspid peak RV-RA gradient 29.6 mm Hg Right atrium Value Reference RA area, ES, A4C 18.5 cm^2 8.3 - 19.5 Pulmonic valve Value Reference Pulmonic peak gradient, S 4 mm Hg Legend: (L) and (H) renita values outside specified reference range. I have personally reviewed the images and have reviewed and edited the reported findings. Electronically signed by Won Mendez 11/10/2018 16:01
== END 2018-11-10 01:56 ==
PROVIDERS: PCP Family Medicine; Visit Provider Student in an Organized Health Care Education/Training Program
DX: I77.819 Aortic ectasia, unspecified site (principal); I77.810 Thoracic aortic ectasia
CPT/HCPCS: 93306

== ENCOUNTER → 2018-11-11 11:52 | Outpatient (BNVA) | payer OTHER, SELFPAY | PROVIDERS: PCP Family Medicine; Visit Provider Student in an Organized Health Care Education/Training Program | DX: I77.819 Aortic ectasia, unspecified site (principal); I21.4 Non-ST elevation (NSTEMI) myocardial infarction; R09.89 Other specified symptoms and signs involving the circulatory and respiratory systems; E11.42 Type 2 diabetes mellitus with diabetic polyneuropathy; J44.9 Chronic obstructive pulmonary disease, unspecified; Z87.891 Personal history of nicotine dependence; Z79.4 Long term (current) use of insulin | CPT/HCPCS: 99215 ==

== ENCOUNTER → 2018-12-08 08:41 | Outpatient (BNVA) | payer OTHER, SELFPAY | PROVIDERS: PCP Family Medicine; Referring Provider Family Medicine; Visit Provider Orthopaedic Surgery | DX: S46.012D Strain of muscle(s) and tendon(s) of the rotator cuff of left shoulder, subsequent encounter (principal); X58.XXXD Exposure to other specified factors, subsequent encounter; J44.9 Chronic obstructive pulmonary disease, unspecified; E11.42 Type 2 diabetes mellitus with diabetic polyneuropathy; Z87.891 Personal history of nicotine dependence; Z79.4 Long term (current) use of insulin | CPT/HCPCS: 99213 ==

== ENCOUNTER 2019-07-20 11:03 | Outpatient (REF) | payer OTHER, SELFPAY ==
[2019-07-20 19:01] LABS: Anion Gap 7.2 mmol/L (3-11); BUN 20 mg/dL (7-18); CO2 27.8 mmol/L (21.0-32.0); CREATININE 1.18 mg/dL (0.70-1.30); Calculated LDL 80 mg/dL (<100); Chloride 103 mmol/L (98-107); Cholesterol 146 mg/dL (<200); Glucose 123 mg/dL (74-106); HDL Cholesterol 44 mg/dL (40-60); Potassium 4.7 mmol/L (3.5-5.1); Sodium 138 mmol/L (136-145); Triglyceride 113 mg/dL (<150)
== END 2019-07-20 11:23 ==
LOC: NCHCN 11:03
PROVIDERS: PCP Family Medicine; Visit Provider Family Medicine
DX: I25.10 Atherosclerotic heart disease of native coronary artery without angina pectoris (principal); E11.9 Type 2 diabetes mellitus without complications
CPT/HCPCS: 80048; 80061

== ENCOUNTER → 2019-09-23 14:04 | Outpatient (BNVA) | payer OTHER, SELFPAY | PROVIDERS: PCP Family Medicine; Referring Provider Family Medicine; Visit Provider Nurse Practitioner Gerontology | DX: N40.1 Benign prostatic hyperplasia with lower urinary tract symptoms (principal); N13.8 Other obstructive and reflux uropathy; J44.9 Chronic obstructive pulmonary disease, unspecified; E11.42 Type 2 diabetes mellitus with diabetic polyneuropathy; Z79.4 Long term (current) use of insulin; Z87.891 Personal history of nicotine dependence | CPT/HCPCS: 99204; 99215 ==

== ENCOUNTER 2019-09-23 14:53 | Outpatient (CLI) | payer OTHER, SELFPAY ==
[2019-09-24 11:32] LABS: PSA, Screening 3.9 ng/mL (0.0-6.5)
== END 2019-09-23 15:13 ==
PROVIDERS: PCP Family Medicine; Visit Provider Nurse Practitioner Gerontology
DX: N40.0 Benign prostatic hyperplasia without lower urinary tract symptoms (principal); Z12.5 Encounter for screening for malignant neoplasm of prostate
CPT/HCPCS: 84153

== ENCOUNTER 2019-09-27 13:51 | Outpatient (REF) | payer OTHER, SELFPAY ==
[2019-09-28 14:06] LABS: COVID-19 RT-PCR UVMMC Result Negative (Negative)
== END 2019-09-27 14:11 ==
LOC: NCHCN 13:51
PROVIDERS: PCP Family Medicine; Visit Provider Physician Assistant
DX: Z03.818 Encounter for observation for suspected exposure to other biological agents ruled out (principal); J06.9 Acute upper respiratory infection, unspecified
CPT/HCPCS: U0003

== ENCOUNTER 2019-10-05 12:05 | Outpatient (CLI) | payer OTHER, SELFPAY ==
--- NOTE | 2019-10-05 11:00 | DI.RAD_ITS ---
EXAM: XR KNEE LT 2V AP,LAT CLINICAL HISTORY: knee pain TECHNIQUE: 2D digital imaging was performed. COMPARISON: CR XR knee RT 2V AP,lat from 04/22/2018 FINDINGS: There is severe narrowing of the medial femoral tibial joint space. There is prominent periarticula r spurring is seen throughout. There is flattening of the tibial spines and femoral intercondylar no tch. Are calcifications in the suprapatellar joint space. There is prominent spurring at the patell ofemoral joint. Vascular calcifications are seen. Chondrocalcinosis is present. 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
--- NOTE | 2019-10-05 11:30 | DI.RAD_ITS ---
EXAM: XR KNEE RT 2V AP,LAT CLINICAL HISTORY: knee pain TECHNIQUE: 2D digital imaging was performed. COMPARISON: CR XR KNEE LT 2V AP,LAT from 10/05/2019 FINDINGS: There is prominent periarticular spurring throughout. There is narrowing of the lateral femoral tib ial joint. There is prominent chondrocalcinosis. there may be a small joint effusion. Vascular ca lcifications are seen. IMPRESSION: Advanced degenerative changes.
== END 2019-10-05 12:25 ==
PROVIDERS: PCP Family Medicine; Visit Provider Orthopaedic Surgery
DX: M25.561 Pain in right knee (principal); M25.461 Effusion, right knee; M17.0 Bilateral primary osteoarthritis of knee; M25.562 Pain in left knee; J44.9 Chronic obstructive pulmonary disease, unspecified; E11.42 Type 2 diabetes mellitus with diabetic polyneuropathy; Z79.4 Long term (current) use of insulin
CPT/HCPCS: 99214; 73560

== ENCOUNTER 2019-10-14 11:00 | Outpatient (CLI) | payer OTHER, SELFPAY | END 2019-10-14 11:20 | PROVIDERS: PCP Family Medicine; Visit Provider Orthopaedic Surgery | DX: Z01.818 Encounter for other preprocedural examination (principal); M17.12 Unilateral primary osteoarthritis, left knee ==

== ENCOUNTER 2019-10-15 02:31 | Outpatient (CLI) | payer OTHER, SELFPAY ==
[2019-10-15 11:51] LABS: Abs Immature Grans 0.01 k/cumm (0.0-0.09); Absolute Basophil Count 0.03 k/cumm (0.0-0.2); Absolute Eosinophil Count 0.58 k/cumm (0.0-0.7); Absolute Lymphocyte Count 1.82 k/cumm (1.2-3.4); Absolute Monocyte Count 0.58 k/cumm (0.11-0.7); Basophils % 0.4; HCT 45.6 % (40.0-50.0); HGB 14.9 g/dL (13.5-17.5); Immature Grans % 0.1 %; Lymphocytes % 25.2; Mean Corp. HGB Concentration 32.7 g/dL (32.0-36.0); Mean Corpuscular Hemoglobin 28.8 pg (27.0-33.0); Mean Corpuscular Volume 88.2 fL (80-95); Mean Platelet Volume 8.7 fL (8.0-11.0); Neutrophils % 58.3; Platelet Count 279 x1000/uL (130-400); RBC 5.17 m/cumm (4.50-6.00); RBC Distribution Width 14.4 % (11.8-14.1); White Blood Cell Count 7.22 k/cumm (4.4-10.8)
[2019-10-15 12:13] LABS: Hemoglobin A1C 7.5 % (3.8-5.6)
[2019-10-17 17:22] LABS: COVID-19 RT-PCR Result NEGATIVE (Negative)
[2019-10-18 09:49] LABS: PSA, Screening 1.7 ng/mL (0.0-6.5)
== END 2019-10-15 02:51 ==
PROVIDERS: PCP Family Medicine; Visit Provider Orthopaedic Surgery
DX: M17.12 Unilateral primary osteoarthritis, left knee (principal)
CPT/HCPCS: 36415; 84153; U0003; 83036; 85025

== ENCOUNTER 2019-11-17 01:40 | Outpatient (CLI) | payer OTHER, SELFPAY ==
--- NOTE | 2019-11-17 10:28 | DI.US_ITS ---
APPROVED REPORT EXAM: Comprehensive 2D, Doppler, and color-flow Echocardiogram Patient Location: Out-Patient Technical Operator: Theresa Torrez RDCS (AE) Indications: CAD, Thoracic Aortic Aneurysm Other Information Study Quality: Good Conclusion Left Ventricle : The left ventricle is normal size. The left ventricular systolic function is normal. The left ventricular ejection fraction is within the normal range. There is normal left ventricular wall thickness. There is normal LV segmental wall motion. The left ventricular diastolic function is normal. LVEF is 55%. Right Ventricle : The right ventricle is normal size. The right ventricular systolic function is norm al. The RVSP is 28.7 mmHg. Atria : Left atrium is borderline dilated. Right atrium is borderline dilated. Mitral Valve : Mitral valve leaflets are mildly thickened. No evidence of mitral valve stenosis. Mild mitral regurgitation. Great Vessels : The aortic root is normal in size. IVC is normal in size and collapses >50% with insp iration. The ascending aorta is severely dilated (4.3cm). Aortic arch is normal in caliber. Compared to study from 11/10/2018, there is no significant change in aortic dimensions.. Wall motion Left Ventricle The left ventricle is normal size. The left ventricular systolic function is normal. The left ventric ular ejection fraction is within the normal range. There is normal left ventricular wall thickness. T here is normal LV segmental wall motion. The left ventricular diastolic function is normal. There is no ventricular septal defect visualized. LVEF is 55%. Right Ventricle The right ventricle is normal size. The right ventricular systolic function is normal. The RVSP is 28 .7 mmHg. Atria Left atrium is borderline dilated. Right atrium is borderline dilated. The interatrial septum is inta ct with no evidence for an atrial septal defect. Aortic Valve Aortic valve is thickened but has adequate excursion. Aortic valve is trileaflet. There is no aortic valvular stenosis. No aortic regurgitation is present. Mitral Valve Mitral valve leaflets are mildly thickened. No evidence of mitral valve stenosis. Mild mitral regurgi tation. Tricuspid Valve The tricuspid valve is normal in structure. There is no tricuspid valve stenosis. Mild tricuspid regu rgitation. Pulmonic Valve The pulmonary valve is normal in structure. There is no pulmonic valvular stenosis. Trace pulmonic re gurgitation. Great Vessels The aortic root is normal in size. The ascending aorta is severely dilated (4.3cm). Aortic arch is no rmal in caliber. IVC is normal in size and collapses >50% with inspiration. Pericardium There is no pericardial effusion. 2D Dimensions IVSD d PLAX 1.05 cm M: 0.6-1.2 LV Vol A2C d MOD 79.9 mL LVPW d PLAX 1.04 cm M: 0.6 - 1.2 LV Vol A4C d MOD 107.5 mL LVID d PLAX 4.60 cm M: 4.2 - 5.8 LA vol/ BSA A2C s A-L 25.4 mL/m2 LVDs 3.10 cm M: 2.5 - 4.0 LA vol/ BSA A4C s A-L 22.5 mL/m2 Ao Root d 3.81 cm M: 3.1 - 3.7 LA Vol/ BSA Biplane s A-L 24.1 mL/m2 RA Area A4C 17.42 cm2 LA Area A4C s MOD 17.64 cm2 RA Vol/ BSA A4C s A-L 22.5 mL/m2 LA Area A2C s MOD 18.59 cm2 Ao Asc Diam d 4.30 cm M: 2.6 - 3.4 LV EF A4C MOD 55.7 % LV EF Teichholz 59.7 % LV EF A2C MOD 54.3 % LVEF (Escamilla's) 55.59 % M: 52 - 72 LV EF Biplane MOD 55.6 % LV Volume 70.16 mL M: 62 - 150 SV 52.32 mL LV Volume Index 34.56 mL/m2 M: 34 - 74 SV Index 25.68 mL/m2 LV Vol Biplane MOD 94.1 mL FS 31.65 % M-Mode TAPSE 2.75 cm (M/F) >1.7 LV Diastology MV E' medial 0.078 (>0.07 m/s) E/A Ratio 1.0 LV E/e MED 10.20 (<14) MV E Vmax 0.80 (0.4-1.3 m/s) MV E' lateral 0.104 (>0.1 m/s) MV A Vmax 0.80 (0.4-1.3 m/s) LV E/e LAT 7.70 (<14) MV E/A Ratio 0.95 MV E/E' medial 10.23 MV E/E' lateral 7.72 Aortic Valve LVOT Area 3.39 cm2 AoV Area Vmax 2.58 cm2 LVOT Vmax 0.90 m/s AoV Area/ BSA (Vmax) 1.26 cm2/m2 LVOT Mean Dexter. 0.60 m/s TYRESE Mean Dexter. 2.35 cm2 LVOT Peak Grad 3.3 mmHg TYRESE Mean Dexter. Index 1.15 cm2/m2 LVOT Mean Grad 1.7 mmHg LVOT VTI 0.210 m LVOT Diam s 2.05 cm AoV Vmax 1.19 m/s Velocity Ratio 0.75 AoV Mean Dexter. 0.87 m/s AoV Peak Grad 5.7 mmHg LVOT SV 71.07 mL AoV Mean Grad 3.3 mmHg AoV VTI 0.256 m AoV Area VTI 2.78 cm2 AoV Area/ BSA (VTI) 1.36 cm/m2 Mitral Valve MV DT 252 (160-240 msec) MV PHT 73 msec MV Area PHT 3.01 cm2 Pulmonary Valve PV Vmax 0.94 (0.5-1.5 m/s) RVOT Peak Gr. 0.90 mmHg PV Peak Grad 3.5 mmHg RVOT Mean Gr. 0.35 mmHg PV Mean Grad 1.9 mmHg RVOT VTI 0.087 m PV VTI 0.165 m RVOT Vmax 0.47 m/s Tricuspid Valve TR Peak Grad 25.6 mmHg TR Vmax 2.53 m/s RA Pressure 3.00 mmHg RVSP (TR) 28.7 mmHg
== END 2019-11-17 02:00 ==
PROVIDERS: PCP Family Medicine; Visit Provider Student in an Organized Health Care Education/Training Program
DX: I25.10 Atherosclerotic heart disease of native coronary artery without angina pectoris (principal); I71.2 Thoracic aortic aneurysm, without rupture; I08.1 Rheumatic disorders of both mitral and tricuspid valves
CPT/HCPCS: 93306

== ENCOUNTER → 2019-11-19 10:54 | Outpatient (BNVA) | payer OTHER, SELFPAY | PROVIDERS: PCP Family Medicine; Referring Provider Family Medicine; Visit Provider Internal Medicine Cardiovascular Disease | DX: I77.810 Thoracic aortic ectasia (principal); F11.10 Opioid abuse, uncomplicated; I25.10 Atherosclerotic heart disease of native coronary artery without angina pectoris; I34.0 Nonrheumatic mitral (valve) insufficiency; E11.42 Type 2 diabetes mellitus with diabetic polyneuropathy; J44.9 Chronic obstructive pulmonary disease, unspecified; Z79.4 Long term (current) use of insulin | CPT/HCPCS: 99203; 99214 ==

== ENCOUNTER → 2019-12-23 09:25 | Outpatient (BNVA) | payer OTHER, SELFPAY | PROVIDERS: PCP Family Medicine; Referring Provider Family Medicine; Visit Provider Nurse Practitioner Gerontology | DX: N40.1 Benign prostatic hyperplasia with lower urinary tract symptoms (principal); N13.8 Other obstructive and reflux uropathy; J44.9 Chronic obstructive pulmonary disease, unspecified; E11.42 Type 2 diabetes mellitus with diabetic polyneuropathy; Z79.4 Long term (current) use of insulin; Z87.891 Personal history of nicotine dependence | CPT/HCPCS: 99213 ==

== ENCOUNTER → 2020-03-22 08:23 | Outpatient (BNVA) | payer OTHER, SELFPAY | PROVIDERS: PCP Family Medicine; Referring Provider Family Medicine; Visit Provider Nurse Practitioner Gerontology | DX: N40.1 Benign prostatic hyperplasia with lower urinary tract symptoms (principal); N13.8 Other obstructive and reflux uropathy; Z79.899 Other long term (current) drug therapy; J44.9 Chronic obstructive pulmonary disease, unspecified; E11.42 Type 2 diabetes mellitus with diabetic polyneuropathy | CPT/HCPCS: 99213 ==

== ENCOUNTER 2020-05-21 07:45 | Emergency (ER) | payer OTHER, SELFPAY ==
[2020-05-21 07:49] VITALS: BP 143/76; PULSE 85; RESP 16; TEMP 36.4; O2SAT 99
--- NOTE | 2020-05-21 07:55 | W.ED.GENAD ---
Discharge Plan Disposition Patient Disposition: HOME Condition: Fair Discharge Details Clinical Impression: Shingles Primary Care Provider: Simone Ratliff ED Provider: Giulia Melgoza Home Meds and New Rx's Prescriptions: New valacyclovir 1 gram tablet 1,000 mg PO TID 7 Days Qty: 21 RF: 0 Continued losartan 25 mg tablet 25 mg PO DAILY Qty: 90 RF: 3 amoxicillin-pot clavulanate 500-125 mg tablet 1 tab PO DAILY PRNRF: 0 prednisone 20 mg tablet 20 mg PO DAILY PRNRF: 0 tamsulosin [Flomax] 0.4 mg capsule 0.4 mg PO DAILY Qty: 90 RF: 3 albuterol sulfate [ProAir HFA] 90 mcg/actuation HFA aerosol inhaler 2 puff IH Q6H PRNRF: 0 finasteride 5 mg tablet 5 mg PO DAILY RF: 0 atorvastatin [Lipitor] 80 MG tablet 80 mg PO HS RF: 0 nitroglycerin [Nitrostat] 0.3 MG tablet, sublingual 0.3 mg Sublingual ONCE RF: 0 (DME) OneTouch Ultra Test 1 EACH strip 1 ea Miscellaneous DAILY RF: 0 aspirin 81 MG tablet,chewable 81 mg PO DAILY RF: 0 zolpidem 5 MG tablet 5 mg PO HS RF: 0 (DME) NovoFine 30 1 EACH needle 1 ea Miscellaneous HS RF: 0 (DME) OneTouch Ultra Test 1 EACH strip 1 ea Miscellaneous RF: 0 sildenafil [Viagra] 50 mg tablet 50 mg PO DAILY PRNRF: 0 Jardiance 25 mg tablet 25 mg PO DAILY RF: 0 Spiriva with HandiHaler 18 mcg Capsule, W/Inhalation Device 1 cap INHALATION DAILY RF: 0 metformin [Glucophage] 1,000 MG tablet 1,000 mg PO BID RF: 0 Levemir FlexTouch U-100 Insuln 100 unit/mL (3 mL) insulin pen 20 unit IJ HS RF: 0 Discharge Instructions Instructions: Shingles (ED) Additional Instructions: Your rash is most consistent with shingles. Please take the Valacyclovir as prescribed. Even if symptoms improve, please take the entire course. Please follow up with your primary care for reevaluation this week for reevaluation. If you develop fevers, chills, increased headache, rash near/around your eye, visual changes or other new/worsening symptoms please seek care urgently once again. Please see attached information on shingles. Remember, this is contagious. Take particular care when around young children and women. Referrals: Simone Ratliff [Primary Care Provider] - Medical Decision Making Patient is a pleasant 74-year-old male presenting today with chief complaint of rash and headache. He reports that this began approximately 3 days ago at the rashes and spreading since then. He denies any fevers or chills. Feels that his right eye may have been slightly blurry. Denies any eye pain. No nausea or vomiting. Denies photophobia at this time. 49 the rash has been spreading down his neck and that he has had some comfort over this area as well. Has been using Tylenol to help with his discomfort with minimal results. He is unclear if she is received his varicella vaccine. On exam, patient appears nontoxic. Vital signs are stable. He does have a zoster rash on the right posterior aspect of his head spreading down to his neck. This does have vesicular lesions on a erythematous base. Not suggestive of cellulitis or other bacterial infection at this point. No evidence of an abscess. Patient has no nuchal rigidity. History and exam is not consistent with encephalitis or meningitis. Slit-lamp exam was performed with fluorescein, no dendritic lesions. Rash spares the face, no Seth sign. Patient and I discussed diagnosis of herpes zoster. He will be started on valacyclovir. We did discuss that this is contagious 10 discussed with people that he lives with. We discussed care of your rash, analgesic options. I encourage close follow-up with primary care this week. He will call primary tomorrow to schedule appointment. Return precautions were discussed. All his questions and concerns were addressed and he is in agreement with this plan. HPI General Mode of arrival: ambulatory. Date/Time Provider Initiated Documentation: 05/21/20 07:55. Limitations to Documentation: no limitations. Information obtained by: patient and RN notes reviewed. History of Present Illness 74 year old M presents to the emergency department with the chief complaint of headache, rash, described as moderate, with intensity rated at 7. Quality is described as burning, and is localized to the head. Patient reports no radiation. Patient started experiencing this day(s) (3) and it has been constant (rash continues to spread). No relieving factors improve symptom(s), No exacerbating factors reported . Patient notes headaches (tender over area of rash) and rash; denies fever/chills, loss of appetite, nausea/vomiting and syncope. Patient did receive the following treatments prior to arrival, none Related Data Home Medications Medication Instructions Recorded Confirmed metformin [Glucophage] 1,000 mg PO BID 09/19/16 05/21/20 NovoFine 30 01/22/17 05/21/20 OneTouch Ultra Test strip 01/22/17 05/21/20 OneTouch Ultra Test strip 01/22/17 05/21/20 aspirin 81 mg PO DAILY tab-cap 01/22/17 05/21/20 atorvastatin [Lipitor] 80 mg PO HS tab-cap 01/22/17 05/21/20 nitroglycerin [Nitrostat] 0.3 mg SUBLINGUAL ONCE tab-cap 01/22/17 05/21/20 zolpidem 5 mg PO HS 01/22/17 05/21/20 albuterol sulfate 90 mcg/actuation 2 puff IH Q6H PRN 04/23/18 05/21/20 aerosol inhaler Spiriva with HandiHaler 1 cap INHALATION DAILY 09/07/18 05/21/20 losartan 25 mg tablet 25 mg PO DAILY #90 tab 11/11/18 05/21/20 empagliflozin 25 mg tablet 25 mg PO DAILY 09/09/19 05/21/20 sildenafil 50 mg tablet 50 mg PO DAILY PRN 09/09/19 05/21/20 amoxicillin 500 mg-potassium 1 tab PO DAILY PRN tab 09/23/19 05/21/20 clavulanate 125 mg tablet insulin detemir U-100 100 unit/mL 20 unit IJ HS ml 09/23/19 05/21/20 (3 mL) subcutaneous pen prednisone 20 mg tablet 20 mg PO DAILY PRN 09/23/19 05/21/20 tamsulosin 0.4 mg capsule 0.4 mg PO DAILY #90 cap 09/23/19 05/21/20 finasteride 5 mg tablet 5 mg PO DAILY 10/14/19 05/21/20 valacyclovir 1,000 mg PO TID 7 Days #21 tab 05/21/20 Previous Rx's Medication Instructions Recorded losartan 25 mg tablet 25 mg PO DAILY #90 tab 11/11/18 tamsulosin 0.4 mg capsule 0.4 mg PO DAILY #90 cap 09/23/19 valacyclovir 1,000 mg PO TID 7 Days #21 tab 05/21/20 Allergies Allergy/AdvReac Type Severity Reaction Status Date / Time No Known Allergies Allergy Verified 05/21/20 07:56 General Stated Complaint: Headache LOCO: 3 Review of Systems Constitutional Constitutional: Reports as per HPI, Denies chills, Denies fatigue, Denies fever(s), Denies frequent falls, Reports headache(s) and Denies weakness Eyes Eyes: Reports as per HPI, Reports blurry vision (questions if right eye is blurry), Denies change in vision and Denies photophobia ENT Ears, Nose, Mouth, and Throat: Denies vertigo, Reports headache(s) and Reports neck pain (right sided neck pain where rash is spreading) Cardiovascular Cardiovascular: Reports as per HPI, Denies chest pain, Denies lightheadedness and Denies dyspnea Respiratory Respiratory: Reports as per HPI, Denies chest congestion, Denies cough and Denies dyspnea Gastrointestinal Gastrointestinal: Reports as per HPI, Denies abdominal pain, Denies change in bowel habits, Denies nausea and Denies vomiting Genitourinary Genitourinary: Reports system reviewed and no additional complaints, except as documented (denies change in urinary habits) Musculoskeletal Musculoskeletal: Reports as per HPI, Denies back pain, Denies myalgias, Denies muscle cramps, Reports neck pain (right sided neck pain where rash is spreading) and Denies numbness Integumentary/Breasts Skin/Breast: Reports as per HPI, Reports rash and Reports skin pain Neurologic Neurologic: Reports as per HPI, Denies abnormal movements, Denies abnormal speech, Denies behavioral changes, Denies confusion, Denies vertigo, Denies frequent falls, Reports headache(s), Denies localized weakness, Denies numbness, Denies sensory deficit and Denies weakness Psychiatric Psychiatric: Denies behavioral changes and Denies confusion Endocrine Endocrine: Denies fatigue REPLACED BY [facility] Medical History (Updated 05/21/20 @ 08:35 by POPEYE Lara) Bilateral foot-drop (02/11/17) Cervical radiculopathy at C8 COPD (chronic obstructive pulmonary disease) Coronary artery disease Depression Diabetes mellitus Diabetic polyneuropathy associated with type 2 diabetes mellitus (02/11/17) High cholesterol History of venous thromboembolism 1975 Following left knee surgery as a teenager Hx of hepatitis Pt states in the 1970's w/treatment recieved Insomnia Mitral regurgitation Myocardial infarction NSTEMI 09/20/2016 Narcotic abuse Cocaine Osteoarthritis of left knee Osteoarthritis of right knee Surgical History History of cardiac catheterization 09/20/2016 History of knee surgery Bilateral knee surgeries as a teenager per Patient to remove cartilage History of umbilical hernia repair Reports 2 surgeries estimates late - Repair of inguinal hernia (02/25/17) Tear of left rotator cuff (08/09/18) s/p left RTC repair DOS: 09/07/18 Injected: 08/11/2018 Social History Smoking/Tobacco Use Status: Former Tobacco Use Tobacco: How many years used: 20 Smoking risk assessment performed?: Yes Alcohol Intake: former Drug use: Current Sobriety Substance use type: crack/cocaine Details: Quit smoking 1997, states last used cocaine 09/18/16 after 10yr sober Do you feel safe at home: Yes Do you feel safe in your relationship?: Yes Exam Const General: cooperative, healthy appearing, comfortable, no acute distress, well developed and well groomed Nutritional Appearance: average body habitus and well nourished Orientation: alert, awake and oriented x3 HENMT Head: no palpable skull fracture and atraumatic Head images: 1. erythematous, vesicular rash. No focal swelling. No discharge. Tender to palpation. 2. Ears: hearing grossly normal bilaterally, external ears normal and TM's normal bilaterally General nose exam: external nose normal Face and sinus: normal facial exam, sinuses nontender, face symmetric, no fluctuance and no tenderness Mouth: oral mucosae normal, lip normal, tongue normal, oropharynx normal and moist mucous membranes Teeth and gingiva: dentition normal Throat: posterior oropharynx normal, tonsils normal and uvula midline Eyes General: appearance normal, both eyes and all related structures Alignment and Position: alignment normal Periorbital: periorbital findings normal Eyelids: eyelids normal Sclera: sclerae normal Cornea: corneas normal and fluorescein used Pupils: PERRL EOM: EOM intact bilaterally Neck Neck: normal visual inspection, full ROM, no lymphadenopathy and no meningeal signs Neck images: 1. 4 scattered areas of vesicular lesions, consistent with rash on the back of his head Resp Effort & Inspection: normal respiratory effort, able to speak in complete sentences and no respiratory distress Auscultation: clear to auscultation bilaterally, no rales, no rhonchi and no wheezes Cardio Rate: regular rate Rhythm: regular rhythm Heart Sounds: S1 normal and S2 normal Back/Spine/Pelvis Cervical Spine: normal cervical lordosis, cervical ROM normal, cervical muscular tenderness (skin tenderness over rash), No cervical spasm, No cervical spinal tenderness, No step off deformity and other (negative Brudinski, Kernigs, jolt accenuation test) Skin Rashes: rashes noted Neuro General: patient alert, patient awake and patient oriented x3 Cranial Nerves: CN's II-XI intact bilaterally Cognition: normal cognition Speech: speech normal Gait: normal gait Motor: muscle tone normal throughout, no movement abnormalities noted and no fasciculations Psych Appearance: grossly normal and well kempt Mental Status: mental status grossly normal Speech and Movement: speech and movement normal Course Vital Signs Vital signs: Vital Signs Temperature 36.4 C L 05/21/20 07:49 Pulse 85 05/21/20 07:49 Respiratory Rate 16 05/21/20 07:49 Blood Pressure 143/76 H 05/21/20 07:49 Pulse Oximetry 99 05/21/20 07:49 Temperature 36.4 C L 05/21/20 07:49 Temperature Source Temporal Artery Scan 05/21/20 07:49 Pulse 85 05/21/20 07:49 Respiratory Rate 16 05/21/20 07:49 Blood Pressure 143/76 H 05/21/20 07:49 Blood Pressure Position Sitting 05/21/20 07:49 Pulse Oximetry 99 05/21/20 07:49 Oxygen Delivery Method Room Air 05/21/20 07:49 Oxygen Flow Rate 0 05/21/20 07:49 Pain Level 7 05/21/20 07:49
[2020-05-21] MEDS: Balanced Salt Solution 15 ML BTL OP (08:25)
[2020-05-21] MEDS: Fluorescein STRIPS 100/BOX 1 MG OP (08:25)
== END 2020-05-21 08:50 | disposition home or self-care (01) ==
PROVIDERS: Emergency Provider Physician Assistant; PCP Family Medicine
DX: B02.9 Zoster without complications (principal); R51.9 Headache, unspecified; H53.8 Other visual disturbances; J44.9 Chronic obstructive pulmonary disease, unspecified; Z87.891 Personal history of nicotine dependence; E11.42 Type 2 diabetes mellitus with diabetic polyneuropathy; Z79.4 Long term (current) use of insulin
CPT/HCPCS: 99284

== ENCOUNTER 2020-07-03 20:18 | Outpatient (REF) | payer OTHER, SELFPAY ==
[2020-07-03 16:05] LABS: Anion Gap 9.7 mmol/L (3-11); BUN 21 mg/dL (7-18); CO2 25.3 mmol/L (21.0-32.0); CREATININE 1.1 mg/dL (0.70-1.30); Calcium 9.8 mg/dL (8.5-10.1); Chloride 104 mmol/L (98-107); Glucose 107 mg/dL (74-106); Potassium 4.7 mmol/L (3.5-5.1); Sodium 139 mmol/L (136-145)
== END 2020-07-03 20:19 | disposition home or self-care (01) ==
LOC: NCHCN 20:18
PROVIDERS: PCP Family Medicine; Visit Provider Family Medicine
DX: E11.9 Type 2 diabetes mellitus without complications (principal)
CPT/HCPCS: 80048

== ENCOUNTER → 2020-10-27 09:22 | Outpatient (BNVA) | payer OTHER, SELFPAY | PROVIDERS: PCP Family Medicine; Referring Provider Family Medicine; Visit Provider Surgery | DX: K43.2 Incisional hernia without obstruction or gangrene (principal); J44.9 Chronic obstructive pulmonary disease, unspecified; E11.42 Type 2 diabetes mellitus with diabetic polyneuropathy | CPT/HCPCS: 99203; 99214 ==

== ENCOUNTER 2020-11-07 01:44 | Outpatient (CLI) | payer OTHER, SELFPAY ==
--- NOTE | 2020-11-07 13:53 | DI.US_ITS ---
APPROVED REPORT EXAM: Comprehensive 2D, Doppler, and color-flow Echocardiogram Patient Location: Out-Patient Director Public Service: Theresa Torrez RDCS (AE) Indications: Dilated ascending aorta Other Information Study Quality: Good Conclusion Left Ventricle : The left ventricle is normal size. The left ventricular systolic function is normal. The left ventricular ejection fraction is within the normal range. There is normal left ventricular wall thickness. There is normal LV segmental wall motion. The left ventricular diastolic function is normal. LVEF is 59%. Right Ventricle : The right ventricle is normal size. The right ventricular systolic function is norm al. The RVSP is 32.6mmHg. Atria : The left atrium size is normal. The right atrium size is normal. Great Vessels : The aortic root is normal in size. The ascending aorta is moderate to severely dilat ed (4.4cm). IVC is normal in size and collapses >50% with inspiration. Please see remainder of study for further details. Compared to study from 11/17/2019, there is no sig nificant change. Wall motion Left Ventricle The left ventricle is normal size. The left ventricular systolic function is normal. The left ventric ular ejection fraction is within the normal range. There is normal left ventricular wall thickness. T here is normal LV segmental wall motion. The left ventricular diastolic function is normal. There is no ventricular septal defect visualized. LVEF is 59%. Right Ventricle The right ventricle is normal size. The right ventricular systolic function is normal. The RVSP is 32 .6mmHg. Atria The left atrium size is normal. The right atrium size is normal. The interatrial septum is intact wit h no evidence for an atrial septal defect. Aortic Valve The aortic valve is normal in structure. Aortic valve is trileaflet. There is no aortic valvular sten osis. No aortic regurgitation is present. Mitral Valve The mitral valve is normal in structure. No evidence of mitral valve stenosis. Trace mitral regurgita tion. Tricuspid Valve The tricuspid valve is normal in structure. There is no tricuspid valve stenosis. Trace tricuspid reg urgitation. Pulmonic Valve The pulmonary valve is normal in structure. There is no pulmonic valvular stenosis. There is no pulmo carlos valvular regurgitation. Great Vessels The aortic root is normal in size. The ascending aorta is moderate to severely dilated (4.4cm). IVC i s normal in size and collapses >50% with inspiration. Pericardium There is no pericardial effusion. 2D Dimensions IVSD d PLAX 1.00 cm M: 0.6-1.2 LV Vol A2C d MOD 89.5 mL LVPW d PLAX 1.04 cm M: 0.6 - 1.2 LV Vol A4C d MOD 95.2 mL LVID d PLAX 4.44 cm M: 4.2 - 5.8 LA vol/ BSA A2C s A-L 23.5 mL/m2 LVDs 3.00 cm M: 2.5 - 4.0 LA vol/ BSA A4C s A-L 21.5 mL/m2 Ao Root d 3.49 cm M: 3.1 - 3.7 LA Vol/ BSA Biplane s A-L 22.7 mL/m2 RA Area A4C 14.17 cm2 LA Area A4C s MOD 16.60 cm2 RA Vol/ BSA A4C s A-L 18.8 mL/m2 LA Area A2C s MOD 17.21 cm2 Ao Asc Diam d 4.39 cm M: 2.6 - 3.4 LV EF A4C MOD 59.0 % LV EF Teichholz 60.0 % LV EF A2C MOD 59.6 % LVEF (Escamilla's) 58.68 % M: 52 - 72 LV EF Biplane MOD 58.7 % LV Volume 71.10 mL M: 62 - 150 SV 55.33 mL LV Volume Index 36.27 mL/m2 M: 34 - 74 SV Index 28.11 mL/m2 LV Vol Biplane MOD 94.3 mL FS 31.75 % M-Mode TAPSE 2.41 cm (M/F) >1.7 LV Diastology MV E' medial 0.096 (>0.07 m/s) E/A Ratio 0.7 LV E/e MED 7.55 (<14) MV E Vmax 0.73 (0.4-1.3 m/s) MV E' lateral 0.132 (>0.1 m/s) MV A Vmax 1.00 (0.4-1.3 m/s) LV E/e LAT 5.50 (<14) MV E/A Ratio 0.71 MV E/E' medial 7.57 MV E/E' lateral 5.51 Aortic Valve LVOT Area 2.87 cm2 AoV Area Vmax 2.53 cm2 LVOT Vmax 1.24 m/s AoV Area/ BSA (Vmax) 1.29 cm2/m2 LVOT Mean Dexter. 0.74 m/s TYRESE Mean Dexter. 2.17 cm2 LVOT Peak Grad 6.2 mmHg TYRESE Mean Dexter. Index 1.10 cm2/m2 LVOT Mean Grad 2.7 mmHg LVOT VTI 0.210 m LVOT Diam s 1.90 cm AoV Vmax 1.41 m/s Velocity Ratio 0.87 AoV Mean Dexter. 0.98 m/s AoV Peak Grad 7.9 mmHg LVOT SV 60.37 mL AoV Mean Grad 4.3 mmHg AoV VTI 0.251 m AoV Area VTI 2.41 cm2 AoV Area/ BSA (VTI) 1.22 cm/m2 Mitral Valve MV DT 251 (160-240 msec) MV PHT 73 msec MV Area PHT 3.02 cm2 MV VTI 0.252 m MV VTI Annulus 0.267 m MV Area VTI 2.55 (4.0-6.0 cm2) Pulmonary Valve PV Vmax 1.11 (0.5-1.5 m/s) RVOT Peak Gr. 3.33 mmHg PV Peak Grad 4.9 mmHg RVOT Mean Gr. 1.55 mmHg PV Mean Grad 2.7 mmHg RVOT VTI 0.142 m PV VTI 0.184 m RVOT Vmax 0.91 m/s Tricuspid Valve TR Peak Grad 29.6 mmHg TR Vmax 2.72 m/s RA Pressure 3.00 mmHg RVSP (TR) 32.6 mmHg
== END 2020-11-07 02:04 ==
PROVIDERS: PCP Family Medicine; Visit Provider Internal Medicine Cardiovascular Disease
DX: I77.810 Thoracic aortic ectasia (principal)
CPT/HCPCS: 93306

== ENCOUNTER 2020-11-08 02:57 | Outpatient (CLI) | payer OTHER, SELFPAY ==
--- NOTE | 2020-11-08 06:45 | DI.CT_ITS ---
Exam(s) CT ABDOMEN PELVIS W EXAM: CT ABDOMEN PELVIS W CLINICAL HISTORY: incisional hernia, ? flank hernia.INCISION HERNIA,K43.2. TECHNIQUE: Imaging Protocol: Axial computed tomography images with coronal and sagittal reformatted images were created and reviewed CONTRAST MATERIAL: Intravenous: Omnipaque 350 Contrast volume:100 ml Oral: yes / COMPARISON: No exams were available for comparison FINDINGS: ABDOMEN: Lung Bases: Normal where visualized. Liver: Normal density. 3 centimeter low-attenuation lesion anterior left lobe. Gallbladder and biliary tract: No radiodense calculus or dilation. Pancreas: Normal density, no abnormal calcifications or inflammatory process. Spleen: Normal. Kidneys: Duplex collecting system left kidney. Small bilateral cysts.. No radiodense stones or obst ructive uropathy. No masses seen. Adrenal glands: No masses seen. Abdominal Aorta: Abdominal portion non-dilated. Heavily calcified aorta. Soft tissues: Left-sided spigelian hernia containing omental fat and a loop of small bowel which is n onobstructed. Small amount of fat in the left inguinal canal. Prior hernia repair above the level o f the umbilicus. PELVIS: Bladder: No gross wall thickening. No calculi.No focal mass. Bowel: No obstruction or bowel wall thickening. Appendix normal. Peritoneal cavity: No ascites, collection or mesenteric inflammatory response. Appendix not seen. Large quantity of stool in the rectosigmoid. Bones: Advanced degenerative changes lower lumbar spine. Reproductive organs: Enlarged prostate. Lymph nodes: Unremarkable. Impression: Left-sided spigelian hernia containing fat and nonobstructed loop of small bowel. 3 centimeter low attenuation lesion in the left lobe of the liver is is not definitely a cyst. Multi phase liver CT or MRI could be considered for further evaluation. RADIATION DOSE DELIVERED: 930.55mGy.cm Total DLP DATA REPOSITORY: All CT scans at this facility are submitted to the National Radiology Data Registry (NRDR) Dose Index Registry (DIR) with the [employer] (A[employer]). RADIATION OPTIMIZATION: All CT scans at this facility use at least one of these dose optimization te chniques: automated exposure control; mA and/or kV adjustment per patient size (includes targeted exa ms where dose is matched to clinical indication); or iterative reconstruction.
[2020-11-08] MEDS: Breeza Beverage 473 ML BTL PO ×2 (09:44)
[2020-11-08] MEDS: Normal Saline - Diluent 50 ML VIAL IV (10:30)
[2020-11-08] MEDS: Omnipaque 350 MG/ML 100 ML BTL IJ (10:31)
== END 2020-11-08 03:17 ==
PROVIDERS: PCP Family Medicine; Visit Provider Surgery
DX: K43.2 Incisional hernia without obstruction or gangrene (principal); K76.9 Liver disease, unspecified
CPT/HCPCS: 74177; 82565; J3490

== ENCOUNTER → 2020-11-14 09:36 | Outpatient (BNVA) | payer OTHER, SELFPAY | PROVIDERS: PCP Family Medicine; Referring Provider Family Medicine; Visit Provider Internal Medicine Cardiovascular Disease | DX: I25.10 Atherosclerotic heart disease of native coronary artery without angina pectoris (principal); I77.810 Thoracic aortic ectasia; E11.9 Type 2 diabetes mellitus without complications; J44.9 Chronic obstructive pulmonary disease, unspecified | CPT/HCPCS: 99214 ==

== ENCOUNTER 2021-01-22 14:26 | Outpatient (CLI) | payer MEDICARE, SELFPAY ==
--- NOTE | 2021-01-22 14:15 | DI.RAD_ITS ---
Exam(s) XR FEMUR RT EXAM: XR FEMUR RT CLINICAL HISTORY: R hip pain. TECHNIQUE: 2D digital imaging was performed. COMPARISON: No exams were available for comparison FINDINGS: No evidence of fracture. Moderate degenerative changes in the knee including chondrocalcinosis noted . Only minimal degenerative changes the right hip joint evident. No osseous lesions. Vascular calc ification noted the femoral artery. No osseous lesions. IMPRESSION: DATA REPOSITORY: RADIATION DOSE DELIVERED:
--- NOTE | 2021-01-22 14:30 | DI.RAD_ITS ---
Exam(s) XR LUMBAR SPINE AP, LAT EXAM: XR LUMBAR SPINE AP, LAT CLINICAL HISTORY: leg weakness and pain. TECHNIQUE: 2D digital imaging was performed. COMPARISON: No exams were available for comparison FINDINGS: No evidence of fracture listhesis nor pars interarticularis defects. There is narrowing of each disc space exception of relative sparing of L1-2. Most prominent narrowing is 4-5 and L5-S1 levels. Mil d scoliosis convex right. There are multilevel degenerative changes facet joints. There is evidence of spinal canal stenosis of the lower half of the lumbar spine. Sacroiliac joints appear unremarkab le. IMPRESSION: DATA REPOSITORY: RADIATION DOSE DELIVERED:
== END 2021-01-22 14:27 | disposition home or self-care (01) ==
PROVIDERS: PCP Family Medicine; Referring Provider Family Medicine; Visit Provider Student in an Organized Health Care Education/Training Program
DX: M25.551 Pain in right hip (principal); R29.898 Other symptoms and signs involving the musculoskeletal system; M48.061 Spinal stenosis, lumbar region without neurogenic claudication; M48.02 Spinal stenosis, cervical region
CPT/HCPCS: 73552; 99214; 72100

== ENCOUNTER → 2021-02-08 01:26 | Outpatient (CLI) | payer MEDICARE, SELFPAY ==
--- NOTE | 2021-02-08 15:15 | DI.MRI_ITS ---
Exam(s) MR LUMBAR SPINE WO EXAM: MR LUMBAR SPINE WO CLINICAL HISTORY: BACK PAIN, LUMBAR RADICULOPATHY, M54.16 TECHNIQUE: Multiplanar multisequence MRI of the Lumbar Spine was performed. CONTRAST MATERIAL: IV Contrast: mL of Dotarem contrast administered. COMPARISON: CR XR LUMBAR SPINE AP, LAT from 01/22/2021 FINDINGS: Bones: The last intervertebral disc space is designated the L5/S1 level for the numbering purpose of this examination. The vertebral body heights are well maintained. Alignment: Mild levoscoliosis seco ndary to degenerative disc changes.. Degenerative marrow signal changes greatest at L4-5 and L5-S1. Cord: The conus tip ends at the T12 L1 level. It is of normal size and signal intensity. T12-L1: No disc herniations or bulges are present. L1-2: Mild concentric disc bulging. Facet degenerative changes and ligamentous hypertrophy encroach ing upon the transverse dimension of the central canal, resulting in moderate central canal stenosis. Mild bilateral neural foraminal narrowing.. L2-3: Moderate loss of disc height, eccentric toward the right. Small endplate osteophytes and disc bulging greater to the right, causing moderate neural foraminal narrowing. Facet degenerative change s contributing to moderate central canal stenosis. L3-4: Broad-based disc bulging. Mild facet joint degenerative changes. No significant central kenn l stenosis. Mild bilateral neural foraminal narrowing. L4-5: Prominent endplate osteophytes eccentric toward the left and severe left-sided disc space narr owing as well as prominent disc bulging. Severe left neural foraminal narrowing, lateral recess narr owing. [id number] central canal stenosis. No significant right neural foraminal narrowing. L5-S1: Moderate to severe loss of disc height, small endplate osteophytes and circumferential disc b ulging. Mild facet degenerative changes combined with degenerative disc changes to produce moderate to severe bilateral neural foraminal narrowing. There is no central canal stenosis. Soft tissues: The visualized SI joints and sacrum are well maintained. The paraspinal soft tissues ar e unremarkable. There is no evidence of suspicious enhancement. IMPRESSION: Multilevel degenerative disc changes and facet degenerative changes, greatest on the left side at L4- 5 where there is severe neural foraminal narrowing. Central canal stenosis is greatest at L2-3. DATA REPOSITORY:
== END ==
PROVIDERS: PCP Family Medicine; Visit Provider Student in an Organized Health Care Education/Training Program
DX: M51.16 Intervertebral disc disorders with radiculopathy, lumbar region; M99.53 Intervertebral disc stenosis of neural canal of lumbar region
CPT/HCPCS: 72148

== ENCOUNTER → 2021-03-26 10:12 | Outpatient (BNVA) | payer MEDICARE, SELFPAY | PROVIDERS: PCP Family Medicine; Referring Provider Family Medicine; Visit Provider Nurse Practitioner Gerontology | DX: N40.1 Benign prostatic hyperplasia with lower urinary tract symptoms (principal); N13.8 Other obstructive and reflux uropathy | CPT/HCPCS: 99213 ==

== ENCOUNTER 2021-05-04 09:25 | Outpatient (CLI) | payer MEDICARE, SELFPAY ==
--- NOTE | 2021-05-04 09:15 | DI.RAD_ITS ---
Exam(s) XR SHOULDER RT COMPLETE 2+V EXAM: XR SHOULDER RT COMPLETE 2+V CLINICAL HISTORY: pain and weakness. TECHNIQUE: 2D digital imaging was performed of the right shoulder. Two images were obtained. AP an d Y-view views were obtained. COMPARISON: No exams were available for comparison FINDINGS: BONES: No acute fracture is present. No bony destructive lesion is seen. JOINTS: No dislocation present. Mild degenerative changes are seen at the acromioclavicular joint and the glenohumeral joint. There does appear to be some slight superior subluxation of the humeral hea d which can be seen with chronic rotator cuff tear. SOFT TISSUE: Normal. IMPRESSION: 1. Mild degenerative changes of the AC and glenohumeral joints. 2. Superior subluxation of the humeral head which can be seen with rotator cuff tear. DATA REPOSITORY: RADIATION DOSE DELIVERED:
== END 2021-05-04 09:26 | disposition home or self-care (01) ==
LOC: DIORS 09:25
PROVIDERS: PCP Family Medicine; Referring Provider Family Medicine; Visit Provider Student in an Organized Health Care Education/Training Program
DX: M25.511 Pain in right shoulder (principal); M19.011 Primary osteoarthritis, right shoulder; M75.101 Unspecified rotator cuff tear or rupture of right shoulder, not specified as traumatic
CPT/HCPCS: 99214; 73030

== ENCOUNTER 2021-05-17 01:09 | Outpatient (CLI) | payer MEDICARE, SELFPAY ==
--- NOTE | 2021-05-17 07:45 | DI.MRI_ITS ---
Exam(s) MR UPPER JOINT RT WO EXAM: MR UPPER JOINT RT WO CLINICAL HISTORY: R SHOULDER PAIN,ROTATOR CUFF ARTHROPATHY,M75.101,M12.811. TECHNIQUE: Multiplanar multisequence MRI was performed. COMPARISON: CR XR SHOULDER RT COMPLETE 2+V from 05/04/2021 FINDINGS: BONES: There is no fracture or contusion pattern. JOINTS: There are marked degenerative changes seen at the acromioclavicular joint. Marked degenerati ve changes are seen at the glenohumeral joint with cartilage loss, subchondral cysts and periarticula r spurring. There is superior subluxation of the humeral head consistent with rotator cuff tear. Pl ease see below. TENDONS: Supraspinatus: There is a complete tear of the supraspinatus tendon with retraction to the level of t he acromioclavicular joint. Infraspinatus: There is a very large, likely complete tear of the infraspinatus tendon. There is ret raction almost to the level of the glenohumeral joint. Subscapularis: There is thickening and tendinosis of the subscapularis tendon. Teres Minor: Unremarkable. Biceps and [place]: The biceps tendon appears intact but may be subluxed. MUSCLES: There is marked atrophy of the teres minor muscle. GLENOID LABRUM: There does appear to be degeneration of the superior labrum. SOFT TISSUES: There is edema seen in the soft tissues around the shoulder. No focal fluid collection is identified. LIGAMENTS: Unremarkable. OTHER: There is fluid seen in the subacromial subdeltoid bursa consistent with the large rotator cuff tear. IMPRESSION: 1. Complete tear of the supraspinatus tendon with retraction to the level of the acromioclavicular azeem int. 2. Large, likely complete, tear of the infraspinatus tendon with retraction. 3. Tendinosis of the subscapularis tendon. Question of subluxation of the biceps tendon. 4. Atrophy of the teres minor muscle. 5. Superior subluxation of the humeral head consistent with a chronic rotator cuff tear. 6. Marked degenerative changes seen at the acromioclavicular and glenohumeral joints. DATA REPOSITORY:
== END 2021-05-17 01:29 ==
PROVIDERS: PCP Family Medicine; Visit Provider Student in an Organized Health Care Education/Training Program
DX: M25.511 Pain in right shoulder (principal); M75.121 Complete rotator cuff tear or rupture of right shoulder, not specified as traumatic; M19.011 Primary osteoarthritis, right shoulder; M75.81 Other shoulder lesions, right shoulder
CPT/HCPCS: 73221

== ENCOUNTER → 2021-05-23 08:22 | Outpatient (BNVA) | payer MEDICARE, SELFPAY | PROVIDERS: PCP Family Medicine; Referring Provider Student in an Organized Health Care Education/Training Program; Visit Provider Student in an Organized Health Care Education/Training Program | DX: M75.101 Unspecified rotator cuff tear or rupture of right shoulder, not specified as traumatic (principal); M12.811 Other specific arthropathies, not elsewhere classified, right shoulder | CPT/HCPCS: 99214 ==

== ENCOUNTER 2021-05-30 12:54 | Outpatient (CLI) | payer MEDICARE, SELFPAY ==
[2021-05-30 13:17] VITALS: BP 112/66; PULSE 91; RESP 16; TEMP 36.9; O2SAT 96
--- NOTE | 2021-05-30 13:57 | DI.RAD_ITS ---
Exam(s) XR PAIN CLINIC LUMBAR SP 2V EXAM: XR PAIN CLINIC LUMBAR SP 2V CLINICAL HISTORY: Dx: Lumbar Radiculopathy TECHNIQUE: 2D and realtime digital imaging was performed. COMPARISON: No exams were available for comparison FINDINGS: C-arm fluoroscopy was utilized by Dr. Bear during reported lumbar epidural steroid injection. Hard c opy shows needle placement and injection in the epidural space at the L5-S1 level. IMPRESSION: RADIATION DOSE DELIVERED: angelo Ortega=7.89 mGy
--- NOTE | 2021-05-30 13:58 | PDOC.PAIN_ITS ---
Pain Clinic Procedure Note Procedure Note Procedure Note: Lumbar Epidural Steroid Injection Procedure Note COMMENTS: He was seen by Dr. Whitaker (Spine surgeon at [facility]) who recommended this procedure. I did review Dr. Whitaker's note as well as the recent lumbar spine MRI. His symptoms are consistent with the findings on MRI. Dx: Lumbosacral radiculopathy Pre-procedure pain VAS: 6/10. Simone Patterson has been referred to the [facility] for lumbar epidural steroid injection. The patient was greeted by the nurse who verified patients name and . Patient was then taken to the fluoroscopy suite. The patient was interviewed and the medial record reviewed. There were no medical, pharmacologic, radiographic, or other structural contraindications to attempting fluoroscopically guided lumbar epidural steroid injection. Risks and expected side effects as well as potential benefits of the procedure were reviewed and voiced concerns expressed. The patient consent form was signed and witnessed. Standard patient time-out procedure was performed. The patient was placed in the prone position on the fluoroscopy table and automated blood pressure cuff and pulse oximeter applied. The skin entry point for entering/approaching the epidural space at L5-S1 and marked. Following thorough chlorhexadine preparation of the skin and draping and 1% lidocaine infiltration of the skin entry point and subcutaneous tissues, a 18 gauge Touhy needle was placed under fluoroscopic guidance and with loss of resistance technique into the epidural space. Needle tip placement and depth were aided and confirmed by fluoroscopy. There was no paresthesia or return of blood or CSF through the needle. 1 cc's of Omnipaque 240 was injected with clear epidural spread confirmed with fluoroscopy. 80mg depomedrol was injected. There was not any unusual discomfort expressed by Simone Patterson. Patient's vital signs were stable throughout the procedure and were as recorded in nursing records. Follow up plans and appointments were discussed with patient. Post procedure instruction was given as documented in nursing records and having met discharge criteria and was discharged from the [facility]. COMMENTS: If this procedure is helpful, it can be completed up to 3 times per 12 months. Post-procedure VAS was 0/10. Иван Bear DO, MPH [employer] [facility]
[2021-05-30 14:11] VITALS: BP 132/62; PULSE 91; RESP 20; O2SAT 96
[2021-05-30] MEDS: Omnipaque 240 MG/ML 50 ML BTL IJ (14:11)
[2021-05-30] MEDS: methylPREDNISolone ACETATE 80 MG/ML VIAL IJ (14:11)
== END 2021-05-30 12:55 | disposition home or self-care (01) ==
LOC: PC 12:56
PROVIDERS: PCP Family Medicine; Visit Provider Preventive Medicine Occupational Medicine
DX: M54.16 Radiculopathy, lumbar region (principal)
CPT/HCPCS: 62323; 72100; J1040; Q9967

== ENCOUNTER → 2021-07-04 01:41 | Outpatient (CLI) | payer MEDICARE, SELFPAY ==
--- NOTE | 2021-07-04 08:00 | DI.CT_ITS ---
Exam(s) CT UPPER EXTREMITY RT WO EXAM: CT UPPER EXTREMITY RT WO CLINICAL HISTORY: RTSA planning,ARTHRITIS RT GLENOHUMERAL JOINT,M19.011 TECHNIQUE: Imaging Protocol: Axial computed tomography images with coronal and sagittal reformatted images were created and reviewed. CONTRAST MATERIAL: Intravenous: None COMPARISON: MR MR UPPER JOINT RT WO from 05/17/2021 FINDINGS: GLENOHUMERAL JOINT: There are advanced osteoarthritic changes joint space narrowing. Small osteophyt es seen inferior articular surface of the humeral head.. Also prominent osteophyte inferior articula r surface of the osseous. Superior subluxation of the humeral head in glenoid fossa noted, consisten t with the chronic full-thickness tear of rotator cuff tendon as seen recent MRI scan of 05/17/2019. That study revealed retraction of the supraspinatus tendon to the AC joint level. That study also r evealed a large complete tear of the infraspinatus tendon, also with retraction of the musculotendino us junction. AC JOINT: There are significant degenerative changes AC joint. There is a degenerative subarticular cyst on clavicular side of the AC joint. OTHER: A small spiculated nodule right lower lobe which measures 5 x 6 millimeters. This requires IMPRESSION: Advanced osteoarthritic degenerative changes in the glenohumeral and AC joints. Evidence to suggest full-thickness tears of the rotator cuff tendon. Incidentally noted is a spiculated 6 millimeter nodule in the lower lobe of the ipsilateral right nicole g. Somewhat suspicious. Recommend follow-up chest CT scan RADIATION DOSE DELIVERED: 649.96mGy.cm Total DLP DATA REPOSITORY: All CT scans at this facility are submitted to the National Radiology Data Registry (NRDR) Dose Index Registry (DIR) with the [employer] ([employer]). RADIATION OPTIMIZATION: All CT scans at this facility use at least one of these dose optimization te chniques: automated exposure control; mA and/or kV adjustment per patient size (includes targeted exa ms where dose is matched to clinical indication); or iterative reconstruction.
== END ==
PROVIDERS: PCP Family Medicine; Visit Provider Student in an Organized Health Care Education/Training Program
DX: M25.511 Pain in right shoulder (principal); M19.011 Primary osteoarthritis, right shoulder; R91.1 Solitary pulmonary nodule; M75.101 Unspecified rotator cuff tear or rupture of right shoulder, not specified as traumatic
CPT/HCPCS: 73200

== ENCOUNTER 2021-07-29 14:40 | Observation (INO) | payer MEDICARE, SELFPAY ==
[2021-07-29] VITALS (31 sets, daily range): BP systolic 110–153; BP diastolic 56–86; PULSE 69–168; RESP 14–31; TEMP 35.9–36.8; O2SAT 95–100
--- NOTE | 2021-07-29 14:30 | RT.EKG_ITS ---
APPROVED REPORT Exam: Resting ECG Reason for Exam: chest pain Patient Location: E HR:157 bpm ECG Measurements Heart Rate 157 AXIS TX 72 P 0 QRSd 90 QRS -64 QT 311 T 101 QTc 505 Conclusion Supraventricular tachycardia...V-rate>(220-age), QRSd<120 Ventricular premature complex...V complex w/ short R-R interval Left anterior fascicular block...axis(240,-40), init forces inf LVH with secondary repolarization abnormality...multi-LVH criteria, abnrm ST-T. SVT. No STEMI. I have reviewed and interpreted ECG and agree with software generated interpretation.
--- NOTE | 2021-07-29 14:45 | RT.EKG_ITS ---
APPROVED REPORT Exam: Resting ECG Reason for Exam: chest pain Patient Location: E HR:97 bpm ECG Measurements Heart Rate 97 AXIS MS 178 P -60 QRSd 93 QRS -63 QT 344 T 48 QTc 438 Conclusion Ectopic atrial rhythm...abnormal P axis, normal rate Left anterior fascicular block...axis(240,-40), init forces inf Left ventricular hypertrophy...multiple voltage criteria ST elevation, consider anterior injury...ST >0.15mV, V1-V5. P waves visible, sinus vs ectopic atrial rhythm. LAFB. No STEMI. I have reviewed and interpreted ECG and agree with software generated interpretation.
--- NOTE | 2021-07-29 14:50 | ED.GENADUL_ITS ---
Discharge Plan Disposition Patient Disposition: [facility] INPATIENT Condition: Serious Discharge Details Clinical Impression: Nonsustained paroxysmal supraventricular tachycardia, Pleuritic chest pain, Mass of left lung Admit Date/Time: 07/29/21 16:22 Admit Provider: Adalberto Lee Attending Provider: Adalberto Lee Primary Care Provider: Simone Ratliff ED Provider: Chasidy Hooper Medical Decision Making 1450 -- 75-year-old male with a history of hyperlipidemia, diabetes, COPD, coronary artery disease, thoracic ascending aortic aneurysm, diabetic peripheral neuropathy, peripheral vascular disease presents for intermittent pleuritic chest and left scapular pain for the past 3 weeks, getting progressively worse. He has received 3 COVID vaccines and reports that he contracted COVID 1 month ago. Initial EKG on arrival notes a rate of 157 and SVT. Just prior to my evaluation, SVT broke to normal sinus rhythm with a heart rate of 97 on repeat ekg. There was noted ST elevation in anterior leads on this ekg but this does not appear significantly different compared to previous EKG in 2017. Vitals within normal limits. Throughout my evaluation, patient had 2 episodes where he appeared to be in SVT with heart rate in the 150s on the monitor. This converted on its own twice and he remains 80s to 90s and sinus on the monitor. He denied any symptoms during these episodes. Differential diagnosis includes post-COVID illness, PE, ACS, arrhythmia, electrolyte abnormality, dehydration, pneumonia. History and presentation does not appear consistent with dissection. Will place an IV, bolus IV fluids, IV Tylenol, screening labs, CT chest and re assess. 1600 --labs reviewed. White blood cell count 11. Normal hemoglobin. Normal coagulation studies. TSH within normal limits. CT reviewed and notes a left upper lobe lung mass which appears new compared to previous imaging. Patient has had multiple runs of SVT while here in the emergency department that lasted few seconds and then convert back to normal sinus rhythm with a rate of 80s to 90s. Blood pressure has remained stable. Case discussed with hospitalist who accepts patient for admission. Will like metoprolol succinate 25 mg p.o. x1. Formal CT report without evidence of pulmonary embolism but does report a 3 cm left upper lobe lung mass in addition to liver metastasis. Medical Records Medical records reviewed: Yes I reviewed the patient's medical records. Imaging Data Radiologic Study: Radiologist's impression: CTA Chest With Contrast Exam date and time: 07/29/2021 3:44 PM Age: 75 years old Clinical indication: Pain; Chest pressure TECHNIQUE: Imaging protocol: Computed tomographic angiography of the chest with contrast. 3D rendering (Not supervised by radiologist): MIP and/or 3D reconstructed images were created by the technologist. Contrast material: OMNIPAQUE 350; Contrast volume: 69 ml; Contrast route: INTRAVENOUS (IV);? COMPARISON: CR XR CHEST 2V PA LATERAL 26/02/2018 14:48 FINDINGS: Pulmonary arteries: Normal. No pulmonary emboli. Aorta: Unremarkable. No aortic aneurysm. No aortic dissection. Lungs: There is an irregular rounded mass measuring about 3.3 cm in the left upper lobe. Margins are slightly spiculated. The lungs show underlying emphysema. A few other scattered areas of probable fibronodular scarring are present. Pleural spaces: Unremarkable. No pneumothorax. No pleural effusion. Heart: Mild calcification of coronary arteries is present. Lymph nodes: There is extensive left hilar lymphadenopathy. Mildly prominent subcarinal lymph nodes are present. Enlarged nodes measuring up to about 18 mm are present in the anterior mediastinum. Intraperitoneal space: The included upper abdomen shows a large approximately 5.5 cm mass in the left lobe of the liver which is potentially metastatic. Several other smaller hepatic nodules are visualized as well. Bones/joints: Unremarkable. No acute fracture.? No lytic osseous lesions. Soft tissues: Unremarkable. IMPRESSION: 3.3 cm left upper lobe lung mass highly suspicious for malignancy.? There is associated left hilar adenopathy and there are liver lesions suspicious for distant metastases. Lab Data Lab results reviewed: Yes I reviewed the patient's lab results. Labs: Laboratory Tests Range/Units 07/29/21 07/29/21 07/29/21 15:00 15:00 15:00 WBC (4.4-10.8) 10^3/uL 11.33 H RBC (4.36-5.78) 10^6/uL 5.01 Hgb (13.5-17.5) g/dL 14.5 Hct (40.0-50.0) % 45.0 MCV (80-95) fL 90 MCH (27.0-33.0) pg 28.9 MCHC (32.0-36.0) % 32.2 RDW (11.8-14.1) % 13.0 Plt Count (130-400) 10^3/uL 279 MPV (8.0-11.0) fL 8.4 Immature Gran % 0.4 Neutrophils % 76.8 Lymphocytes % 11.9 Monocytes % 10.1 Eosinophils % 0.4 Basophils % 0.4 Nucleated RBC % (0.0-0.3) % 0.0 Absolute Neutrophils (1.2-6.7) 10^3/uL 8.70 H Absolute Lymphocytes (1.2-3.4) 10^3/uL 1.35 Absolute Monocytes (0.1-0.8) 10^3/uL 1.14 H Absolute Eosinophils (0.0-0.7) 10^3/uL 0.05 Absolute Basophils (0.0-0.2) 10^3/uL 0.05 PT (9.3-11.0) sec 10.4 INR (0.9-1.1) 1.0 APTT (21.0-27.5) sec 28.2 H Sodium (136-145) mmol/L 134 L Potassium (3.5-5.1) mmol/L 4.1 Chloride (98-107) mmol/L 100 Carbon Dioxide (21.0-32.0) mmol/L 25.1 Anion Gap (3-11) mmol/L 8.9 BUN (7-18) mg/dL 20 H Creatinine (0.70-1.30) mg/dL 1.4 H Estimated GFR/1.73 m2 (mL/min/1.73m2) 49.27 Glucose (74-106) mg/dL 320 H Calcium (8.5-10.1) mg/dL 9.3 Magnesium (1.8-2.4) mg/dL 1.9 Total Bilirubin (0.2-1.0) mg/dL 0.6 AST (15-37) U/L 18 ALT (16-63) U/L 23 Alkaline Phosphatase (46-116) U/L 164 H Troponin I (<or=60) ng/L < 50 Total Protein (6.4-8.2) g/dL 7.8 Albumin (3.4-5.0) g/dL 3.6 TSH (0.36-3.74) uIU/mL Range/Units 07/29/21 07/29/21 15:00 16:13 WBC (4.4-10.8) 10^3/uL RBC (4.36-5.78) 10^6/uL Hgb (13.5-17.5) g/dL Hct (40.0-50.0) % MCV (80-95) fL MCH (27.0-33.0) pg MCHC (32.0-36.0) % RDW (11.8-14.1) % Plt Count (130-400) 10^3/uL MPV (8.0-11.0) fL Immature Gran % Neutrophils % Lymphocytes % Monocytes % Eosinophils % Basophils % Nucleated RBC % (0.0-0.3) % Absolute Neutrophils (1.2-6.7) 10^3/uL Absolute Lymphocytes (1.2-3.4) 10^3/uL Absolute Monocytes (0.1-0.8) 10^3/uL Absolute Eosinophils (0.0-0.7) 10^3/uL Absolute Basophils (0.0-0.2) 10^3/uL PT (9.3-11.0) sec INR (0.9-1.1) APTT (21.0-27.5) sec Sodium (136-145) mmol/L Potassium (3.5-5.1) mmol/L Chloride (98-107) mmol/L Carbon Dioxide (21.0-32.0) mmol/L Anion Gap (3-11) mmol/L BUN (7-18) mg/dL Creatinine (0.70-1.30) mg/dL Estimated GFR/1.73 m2 (mL/min/1.73m2) Glucose (74-106) mg/dL Calcium (8.5-10.1) mg/dL Magnesium (1.8-2.4) mg/dL Total Bilirubin (0.2-1.0) mg/dL AST (15-37) U/L ALT (16-63) U/L Alkaline Phosphatase (46-116) U/L Troponin I (<or=60) ng/L Cancelled Total Protein (6.4-8.2) g/dL Albumin (3.4-5.0) g/dL TSH (0.36-3.74) uIU/mL 1.20 ECG Data Attestation: I personally reviewed and interpreted this ECG (s) as follows: Interpretation: #1 --Rate of 157, SVT, no STEMI. #2 --Rate of 97, sinus, PACs. Questionable ST elevation in anterior leads but this did not appear significantly different than previous EKG 2017. HPI General Mode of arrival: wheelchair . Date/Time Provider Initiated Documentation: 07/29/21 14:47 . Limitations to Documentation: no limitations . Information obtained by: patient . HPI Narrative: Patient is a 75-year-old male with a history of hyperlipidemia, diabetes, COPD, coronary artery disease, thoracic ascending aortic aneurysm, diabetic peripheral neuropathy, peripheral vascular disease who presents for intermittent chest pain for the past few weeks, getting progressively worse. Patient states he has sharp substernal chest pain that mainly occurs with deep breaths. He also admits to intermittent left scapular pain. He admits to shortness of breath mainly when having difficulty taking a deep breath. He states he is fully vaccinated for COVID including a booster but has not yet received his second booster. He states he did contract COVID 1 month ago. He states he has lost approximately 40 pounds in the last year due to decreased appetite. He denies any recent fever, cough, vomiting or diarrhea. He states he just drove from [place] today. Related Data Home Medications Medication Instructions Recorded Confirmed metformin 1,000 mg tablet 1,000 mg PO BID 09/19/16 07/29/21 (Glucophage) aspirin 81 mg chewable tablet 81 mg PO DAILY tab-cap 01/22/17 07/29/21 atorvastatin 80 mg tablet (Lipitor) 80 mg PO HS tab-cap 01/22/17 07/29/21 blood sugar diagnostic (OneTouch strip 01/22/17 05/23/21 Ultra Test) blood sugar diagnostic (OneTouch strip 01/22/17 05/23/21 Ultra Test) nitroglycerin 0.3 mg sublingual 0.3 mg SUBLINGUAL ONCE tab-cap 01/22/17 07/29/21 tablet (Nitrostat) pen needle, diabetic 30 gauge x 01/22/17 05/23/2104/02 (NovoFine 30) zolpidem 5 mg tablet 5 mg PO HS 01/22/17 07/29/21 albuterol sulfate 90 mcg/actuation 2 puff IH Q6H PRN 04/23/18 07/29/21 aerosol inhaler (ProAir HFA) empagliflozin 25 mg tablet 25 mg PO DAILY 09/09/19 07/29/21 (Jardiance) sildenafil 50 mg tablet (Viagra) 50 mg PO DAILY PRN 09/09/19 05/30/21 insulin detemir U-100 100 unit/mL 35 unit IJ HS ml 09/23/19 07/29/21 (3 mL) subcutaneous pen (Levemir FlexTouch U-100 Insulin) finasteride 5 mg tablet 5 mg PO HS 10/14/19 07/29/21 exenatide microspheres 2 mg/0.85 2 mg SUBCUT QWEEK 10/12/20 07/29/21 mL subcutaneous auto-injector (ByAirside Mobilese) tiotropium bromide 18 mcg capsule 1 cap INHALATION DAILY 10/12/20 07/29/21 with inhalation device (Spiriva with HandiHaler) losartan 25 mg tablet 25 mg PO HS 07/29/21 07/29/21 tamsulosin 0.4 mg capsule (Flomax) 0.4 mg PO HS 07/29/21 07/29/21 Allergies Allergy/AdvReac Type Severity Reaction Status Date / Time No Known Allergies Allergy Verified 07/29/21 14:48 General Stated Complaint: Chest Pain LOCO: 2 Review of Systems All systems reviewed & are unremarkable except as noted in HPI and below Constitutional Constitutional: Denies chills, Denies excessive sweating, Denies fatigue, Denies fever(s), Denies weakness and Reports weight loss (40lb in the last year) Eyes Eyes: Reports system reviewed and no additional complaints, except as documented and Denies blurry vision ENT Ears, Nose, Mouth, and Throat: Denies vertigo, Denies dizziness, Denies otalgia, Denies nasal congestion, Denies sore throat and Denies throat swelling Cardiovascular Cardiovascular: Reports chest pain, Denies syncope, Denies rapid heart rate and Reports dyspnea Respiratory Respiratory: Denies chest congestion, Denies cough, Denies pain on inspiration and Reports dyspnea Gastrointestinal Gastrointestinal: Denies abdominal pain, Denies diarrhea and Denies vomiting Genitourinary Genitourinary: Denies hematuria, Denies dysuria and Denies flank pain Musculoskeletal Musculoskeletal: Denies back pain and Denies joint swelling Integumentary/Breasts Skin/Breast: Denies lesions and Denies rash Neurologic Neurologic: Denies behavioral changes, Denies confusion, Denies vertigo, Denies dizziness, Denies syncope, Denies localized weakness and Denies weakness Psychiatric Psychiatric: Denies behavioral changes, Denies confusion and Denies depression Endocrine Endocrine: Denies excessive sweating and Denies fatigue Hematologic/Lymphatic Hematologic/Lymphatic: Denies easy bruising and Denies lymphadenopathy Allergic/Immunologic Allergic/Immunologic: Denies throat swelling PFSH All Active Problems (Updated 07/29/21 @ 18:45 by Adalberto Lee MD) Liver mass (Acute) Nonsustained paroxysmal supraventricular tachycardia (Acute) Pleuritic chest pain (Acute) Mass of left lung (Acute) Rotator cuff tear arthropathy of right shoulder (Acute) Cervical stenosis of spinal canal (Acute) C7 Spinal stenosis at L4-L5 level (Acute) Incisional hernia (Acute) Vitreous floaters (Acute) Hematospermia (Acute) Right inguinal hernia (Acute) Venous insufficiency (Acute) Hyperlipidemia (Acute) Diabetic nephropathies (Acute) Rotator cuff syndrome (Acute) Postherpetic trigeminal neuralgia (Acute) Ventral hernia (Acute) Ascending aorta dilation (Acute) Osteoarthritis of left knee (Chronic) Osteoarthritis of right knee (Acute) BPH w urinary obs/LUTS (Acute) Cervical radiculopathy at C8 (Chronic) History of knee surgery (Chronic) Bilateral knee surgeries as a teenager per Patient to remove cartilage Diabetic polyneuropathy associated with type 2 diabetes mellitus (Acute 02/11/17) Bilateral foot-drop (Acute 02/11/17) Hx of hepatitis (Acute) Pt states in the s w/treatment recieved Insomnia (Chronic) History of cardiac catheterization (Chronic) 09/20/2016 History of venous thromboembolism (Acute) 1975 Following left knee surgery as a teenager Coronary artery disease (Chronic) Narcotic abuse (Chronic) Cocaine Mitral regurgitation (Chronic) Myocardial infarction (Chronic) NSTEMI 09/20/2016 COPD (chronic obstructive pulmonary disease) (Chronic) High cholesterol (Chronic) Diabetes mellitus (Chronic) Depression (Chronic) Medical History DDD (degenerative disc disease), lumbar Thoracic ascending aortic aneurysm Surgical History History of umbilical hernia repair Reports 2 surgeries estimates late - Repair of inguinal hernia (02/25/17) Tear of left rotator cuff (08/09/18) s/p left RTC repair DOS: 09/07/18 Injected: 08/11/2018 Social History Smoking/Tobacco Use Status: Former Tobacco Use Tobacco: How many years used: 20 Smoking risk assessment performed?: Yes Alcohol Intake: current Alcohol Intake frequency: holidays/special occasions only Alcohol type: wine Drug use: Current Sobriety Substance use type: former substance user and crack/cocaine Details: Quit smoking 1997, states last used cocaine 09/18/16 after 10yr sober Current gender identity: male Do you feel safe at home: Yes Do you feel safe in your relationship?: Yes Exam Const General: cooperative Orientation: alert, awake and oriented x3 HENMT Head: normal to inspection Ears: hearing grossly normal bilaterally and external ears normal General nose exam: external nose normal Face and sinus: normal facial exam Mouth: oral mucosae normal Eyes General: appearance normal, both eyes and all related structures Eyelids: eyelids normal Pupils: PERRL EOM: EOM intact bilaterally Neck Neck: normal visual inspection Lymphatic: no lymphadenopathy noted Chest Chest: normal inspection of the chest Resp Effort & Inspection: normal respiratory effort and able to speak in complete sentences Auscultation: clear to auscultation bilaterally Cardio Rate: tachycardic Rhythm: regular rhythm GI Inspection: normal to inspection Palpation: soft, not firm, no guarding, no hepatosplenomegaly, no masses and nontender Auscultation: normal bowel sounds Back/Spine/Pelvis Back: no CVA tenderness Skin General skin exam: no rashes or lesions noted Neuro General: patient alert and patient awake Cognition: normal cognition Speech: speech normal Gait: normal gait Motor: muscle tone normal throughout Sensory Exam: no sensory deficits noted Extrem General: normal to inspection, full ROM, capillary refill normal and no edema Psych Appearance: grossly normal Mental Status: mental status grossly normal Speech and Movement: speech and movement normal Affect: normal affect Thought Process: normal Course Vital Signs Vital signs: Vital Signs Temperature 98.2 F 07/29/21 14:43 Pulse 90 07/29/21 14:43 Respiratory Rate 24 07/29/21 14:43 Blood Pressure 148/70 H 07/29/21 14:43 Pulse Oximetry 98 07/29/21 14:43 Temperature 98.2 F 07/29/21 14:43 Pulse 90 07/29/21 14:43 Respiratory Rate 24 07/29/21 14:43 Blood Pressure 148/70 H 07/29/21 14:43 Blood Pressure Position Supine 07/29/21 14:43 Pulse Oximetry 98 07/29/21 14:43 Oxygen Delivery Method Room Air 07/29/21 14:43 Oxygen Flow Rate 0 07/29/21 14:43 Pain Level 5 07/29/21 14:43
--- NOTE | 2021-07-29 15:00 | DI.CT_ITS ---
Exam(s) CT CHEST PE CTA EXAM: CT CHEST PE CTA CT CLINICAL HISTORY: pleuritic chest pain, r/o PE. TECHNIQUE: Imaging Protocol: Axial CT angiography was performed with multi-slice acquisition and mu lti-planar reconstructions as well as axial, coronal and sagittal MIP reconstructions. CONTRAST MATERIAL: Intravenous: Omnipaque 350 Contrast volume:100 ml COMPARISON: CT CT ABDOMEN PELVIS W from 11/08/2020 FINDINGS: Pulmonary Arteries: No evidence of filling defect to suggest pulmonary emboli. Tracheobronchial tree: Patent where visualized. Mediastinum and Arabella: Abnormally enlarged nodes in the right paratracheal, AP window, pre and subcari nal regions as well as left hilum. Anterior mediastinal lymph node also seen. 16 millimeter left ax illary lymph node. Pulmonary parenchyma: Suspicious appearing partially spiculated mass in the left upper lobe, consiste nt with malignancy. There are multiple other small scattered nodules in both lungs. There are under lying emphysematous changes.. Pleura: No effusion or pneumothorax. Heart: The heart is not dilated. Moderate coronary artery calcifications are seen. Aorta: Thoracic aorta is mildly dilated at 3.9 cm.. Mild atherosclerotic changes.. No dissection. Upper abdomen: Mass seen in left lobe of liver measuring 5.5 cm. Two smaller lesions are seen more superiorly in the right lobe, suspicious for metastatic disease. Bones: Degenerative changes. No lytic or blastic lesions visible.. IMPRESSION: No evidence of pulmonary embolism. 3.3 centimeters spiculated mass left upper lobe suspicious for malignancy. Enlarged left hilar, medi astinal and left axillary lymph nodes. Multiple other scattered tiny nodules suspicious for metastas es. Liver metastases.. RADIATION DOSE DELIVERED: 350.32mGy.cm Total DLP DATA REPOSITORY: All CT scans at this facility are submitted to the National Radiology Data Registry (NRDR) Dose Index Registry (DIR) with the [employer] ([employer]). RADIATION OPTIMIZATION: All CT scans at this facility use at least one of these dose optimization te chniques: automated exposure control; mA and/or kV adjustment per patient size (includes targeted exa ms where dose is matched to clinical indication); or iterative reconstruction.
[2021-07-29 15:07] LABS: Abs Immature Grans 0.04 10^3/uL (0.0-0.06); Absolute Basophil Count 0.05 10^3/uL (0.0-0.2); Absolute Eosinophil Count 0.05 10^3/uL (0.0-0.7); Absolute Lymphocyte Count 1.35 10^3/uL (1.2-3.4); Absolute Monocyte Count 1.14 10^3/uL (0.1-0.8); Basophils % 0.4; Eosinophils % 0.4; HGB 14.5 g/dL (13.5-17.5); Immature Grans % 0.4; Lymphocytes % 11.9; MCH 28.9 pg (27.0-33.0); MCHC 32.2 % (32.0-36.0); MCV 90 fL (80-95); MPV 8.4 fL (8.0-11.0); Monocytes % 10.1; Neutrophils % 76.8; Platelet Count 279 10^3/uL (130-400); RBC 5.01 10^6/uL (4.36-5.78); RDW-SD 42.5 fL; WBC 11.33 10^3/uL (4.4-10.8)
[2021-07-29 15:22] LABS: PTT Activated 28.2 sec (21.0-27.5); Prothrombin Time 10.4 sec (9.3-11.0)
[2021-07-29 15:24] LABS: ALT 23 U/L (16-63); AST 18 U/L (15-37); Albumin 3.6 g/dL (3.4-5.0); Alkaline Phosphatase 164 U/L (46-116); Anion Gap 8.9 mmol/L (3-11); BUN 20 mg/dL (7-18); Bilirubin, Total 0.6 mg/dL (0.2-1.0); CO2 25.1 mmol/L (21.0-32.0); CREATININE 1.4 mg/dL (0.70-1.30); Calcium 9.3 mg/dL (8.5-10.1); Chloride 100 mmol/L (98-107); Estimated GFR 49.27 (mL/min/1.73m2); Glucose 320 mg/dL (74-106); Magnesium 1.9 mg/dL (1.8-2.4); Potassium 4.1 mmol/L (3.5-5.1); Sodium 134 mmol/L (136-145); Total Protein 7.8 g/dL (6.4-8.2); Troponin I < 50 ng/L (<or=60)
[2021-07-29] MEDS: Normal Saline 500 ML IV (15:35)
[2021-07-29] MEDS: ACETAMINOPHEN 1,000 MG/100 ML BTL 400 MG IVPB (15:35)
[2021-07-29] MEDS: Omnipaque 350 MG/ML 100 ML BTL IJ (15:49)
[2021-07-29] MEDS: Normal Saline Flush 10 ML SYR IVP ×2 (15:50→20:17)
[2021-07-29 16:31] LABS: Source Nasal/Nares
[2021-07-29] MEDS: Metoprolol CR 25 MG TABCR PO (16:31)
--- NOTE | 2021-07-29 16:39 | DI.VRAD_ITS ---
PROCEDURE INFORMATION: Exam: CTA Chest With Contrast Exam date and time: 07/29/2021 3:44 PM Age: 75 years old Clinical indication: Pain; Chest pressure TECHNIQUE: Imaging protocol: Computed tomographic angiography of the chest with contrast. 3D rendering (Not supervised by radiologist): MIP and/or 3D reconstructed images were created by the technologist. Contrast material: OMNIPAQUE 350; Contrast volume: 69 ml; Contrast route: INTRAVENOUS (IV); COMPARISON: CR XR CHEST 2V PA LATERAL 26/02/2018 14:48 FINDINGS: Pulmonary arteries: Normal. No pulmonary emboli. Aorta: Unremarkable. No aortic aneurysm. No aortic dissection. Lungs: There is an irregular rounded mass measuring about 3.3 cm in the left upper lobe. Margins are slightly spiculated. The lungs show underlying emphysema. A few other scattered areas of probable fibronodular scarring are present. Pleural spaces: Unremarkable. No pneumothorax. No pleural effusion. Heart: Mild calcification of coronary arteries is present. Lymph nodes: There is extensive left hilar lymphadenopathy. Mildly prominent subcarinal lymph nodes are present. Enlarged nodes measuring up to about 18 mm are present in the anterior mediastinum. Intraperitoneal space: The included upper abdomen shows a large approximately 5.5 cm mass in the left lobe of the liver which is potentially metastatic. Several other smaller hepatic nodules are visualized as well. Bones/joints: Unremarkable. No acute fracture. No lytic osseous lesions. Soft tissues: Unremarkable. IMPRESSION: 3.3 cm left upper lobe lung mass highly suspicious for malignancy. There is associated left hilar adenopathy and there are liver lesions suspicious for distant metastases. Dictated and Authenticated by: Calvin Corona MD. Ordering:BETTINA Umaña MD
[2021-07-29 17:11] LABS: COVID-19 PCR Negative (Negative)
[2021-07-29] MEDS: Insulin Aspart 300 UNITS/3 ML PEN SC (18:04)
--- NOTE | 2021-07-29 18:32 | HPE_ITS ---
Date of service: 07/29/21 Time of Service: 18:33 Assessment and Plan Assessment and plan (1) Nonsustained paroxysmal supraventricular tachycardia: Status: Acute Assessment and plan: Episodic and nonsustained. Initiated metoprolol CR 25mg daily. Telemetry. Given associated upper left CP; trending troponin levels. Initial troponin neg. (2) Mass of left lung: Status: Acute Assessment and plan: Will need tissue for dx. Consider bx of liver lesion, that is likely a metastatic lesion, by [facility]. (3) Incisional hernia: Status: Acute Assessment and plan: He endorses reducing the left sided hernia to aid in bowel movements. Nontender. Qualifiers: Obstruction and gangrene presence: without obstruction or gangrene Qualified Code(s): K43.2 - Incisional hernia without obstruction or gangrene (4) Hyperlipidemia: Status: Acute Assessment and plan: Cont atorvastatin 80mg QHS (5) Coronary artery disease: Status: Chronic Assessment and plan: 3 weeks of chest pain that is more typical of pleuritic pain and likely associated with the left upper lobe lung mass. Trend troponin level. Cont aspirin 81mg daily. (6) Diabetic polyneuropathy associated with type 2 diabetes mellitus: Status: Acute Assessment and plan: Random glucose of 320 in the ED On weekly exenatide SQ at home. Cont Jardiance 25mg po daily. Cont levemir 35 units QHS SS correction dose of insulin. glucose monitoring QACHS Diabetic diet. (7) Liver mass: Status: Acute Assessment and plan: See Lung mass. (8) Insomnia: Status: Chronic Assessment and plan: Cont zolpidem 5mg QHS History of Present Illness History of Present Illness Chief Complaint: Chest and left scapular area pain Narrative: This is a 75 yo male with a PMH of CAD, thoracic ascending aortic aneurysm, COPD, HLD, DM2 with neuropathy, PAD. He also was positive for COVID-19 1 month prior to presentation. He presented with appx 3 weeks of left upper chest, left scapular area pain that has worsened in nature. No palpitations noted. No F/C, trauma. In the ED his initial EKG showed SVT at a rate of 157. This resolved spontaneously with repeat EKG showing NSR rate of 97. Anterior ST elevation on EKG appeared similar to EKG in 2017. Other vitals were normal. He had 2 further episodes of SVT in the 150's but each time converted back to NSR with rate in the 80-90's range. WBC count 11.33. Hgb, coags, K were normal. Na slightly low at 134. Glucose 320. Creatinine 1.4 (baseline of 1.0-1.1). CTA chest: No pulmonary embolism. Noted was a 3.3 cm left upper lobe lung mass highly suspicious for malignancy.? There is associated left hilar adenopathy and there are liver lesions suspicious for distant metastases. Admitted for observation on telemetry and to develop strategy for obtaining tissue for dx of the lung and liver masses. Review of Systems All systems reviewed & are unremarkable except as noted in HPI and below PFSH All Active Problems (Updated 07/29/21 @ 18:45 by Adalberto Lee MD) Liver mass (Acute) Nonsustained paroxysmal supraventricular tachycardia (Acute) Pleuritic chest pain (Acute) Mass of left lung (Acute) Rotator cuff tear arthropathy of right shoulder (Acute) Cervical stenosis of spinal canal (Acute) C7 Spinal stenosis at L4-L5 level (Acute) Incisional hernia (Acute) Vitreous floaters (Acute) Hematospermia (Acute) Right inguinal hernia (Acute) Venous insufficiency (Acute) Hyperlipidemia (Acute) Diabetic nephropathies (Acute) Rotator cuff syndrome (Acute) Postherpetic trigeminal neuralgia (Acute) Ventral hernia (Acute) Ascending aorta dilation (Acute) Osteoarthritis of left knee (Chronic) Osteoarthritis of right knee (Acute) BPH w urinary obs/LUTS (Acute) Cervical radiculopathy at C8 (Chronic) History of knee surgery (Chronic) Bilateral knee surgeries as a teenager per Patient to remove cartilage Diabetic polyneuropathy associated with type 2 diabetes mellitus (Acute 02/11/17) Bilateral foot-drop (Acute 02/11/17) Hx of hepatitis (Acute) Pt states in the s w/treatment recieved Insomnia (Chronic) History of cardiac catheterization (Chronic) 09/20/2016 History of venous thromboembolism (Acute) 1975 Following left knee surgery as a teenager Coronary artery disease (Chronic) Narcotic abuse (Chronic) Cocaine Mitral regurgitation (Chronic) Myocardial infarction (Chronic) NSTEMI 09/20/2016 COPD (chronic obstructive pulmonary disease) (Chronic) High cholesterol (Chronic) Diabetes mellitus (Chronic) Depression (Chronic) Medical History DDD (degenerative disc disease), lumbar Thoracic ascending aortic aneurysm Surgical History History of umbilical hernia repair Reports 2 surgeries estimates late - Repair of inguinal hernia (02/25/17) Tear of left rotator cuff (08/09/18) s/p left RTC repair DOS: 09/07/18 Injected: 08/11/2018 Social History Smoking/Tobacco Use Status: Former Tobacco Use Tobacco: How many years used: 20 Smoking risk assessment performed?: Yes Alcohol Intake: current Alcohol Intake frequency: holidays/special occasions only Alcohol type: wine Drug use: Current Sobriety Substance use type: former substance user and crack/cocaine Details: Quit smoking 1997, states last used cocaine 09/18/16 after 10yr sober Current gender identity: male Do you feel safe at home: Yes Do you feel safe in your relationship?: Yes Meds Allergies and Home Medications Allergies Allergy/AdvReac Type Severity Reaction Status Date / Time No Known Allergies Allergy Verified 07/29/21 14:48 Home Medications Medication Instructions Recorded Confirmed Type metformin 1,000 mg tablet 1,000 mg PO BID 09/19/16 07/29/21 History (Glucophage) aspirin 81 mg chewable tablet 81 mg PO DAILY tab-cap 01/22/17 07/29/21 History atorvastatin 80 mg tablet (Lipitor) 80 mg PO HS tab-cap 01/22/17 07/29/21 History blood sugar diagnostic (OneTouch strip 01/22/17 05/23/21 History Ultra Test) blood sugar diagnostic (OneTouch strip 01/22/17 05/23/21 History Ultra Test) nitroglycerin 0.3 mg sublingual 0.3 mg SUBLINGUAL ONCE tab-cap 01/22/17 07/29/21 History tablet (Nitrostat) pen needle, diabetic 30 gauge x 01/22/17 05/23/21 History 1/3 (NovoFine 30) zolpidem 5 mg tablet 5 mg PO HS 01/22/17 07/29/21 History albuterol sulfate 90 mcg/actuation 2 puff IH Q6H PRN 04/23/18 07/29/21 History aerosol inhaler (ProAir HFA) empagliflozin 25 mg tablet 25 mg PO DAILY 09/09/19 07/29/21 History (Jardiance) sildenafil 50 mg tablet (Viagra) 50 mg PO DAILY PRN 09/09/19 05/30/21 History insulin detemir U-100 100 unit/mL 35 unit IJ HS ml 09/23/19 07/29/21 History (3 mL) subcutaneous pen (Levemir FlexTouch U-100 Insulin) finasteride 5 mg tablet 5 mg PO HS 10/14/19 07/29/21 History exenatide microspheres 2 mg/0.85 2 mg SUBCUT QWEEK 10/12/20 07/29/21 History mL subcutaneous auto-injector (Bydureon BCise) tiotropium bromide 18 mcg capsule 1 cap INHALATION DAILY 10/12/20 07/29/21 History with inhalation device (Spiriva with HandiHaler) losartan 25 mg tablet 25 mg PO HS 07/29/21 07/29/21 History tamsulosin 0.4 mg capsule (Flomax) 0.4 mg PO HS 07/29/21 07/29/21 History Exam Narrative Exam Narrative: Pleasant elderly male. Conversant. In bed. Const General: cooperative and no acute distress Nutritional Appearance: obese Orientation: alert and oriented x3 Eyes General: appearance normal, both eyes and all related structures Sclera: sclerae normal Neck Neck: normal visual inspection and no JVD Resp Effort & Inspection: normal respiratory effort Auscultation: clear to auscultation bilaterally and diminished lung sounds bilaterally in the lower lung cash Cardio Rate: regular rate Rhythm: regular rhythm Heart Sounds: S1 normal and S2 normal GI Inspection: normal to inspection Palpation: soft, hernia and nontender Auscultation: normal bowel sounds Skin Lesions: lesion noted (crown of head) Rashes: no rashes Neuro General: no focal motor deficits Cranial Nerves: facial strength normal Cognition: normal cognition Speech: speech normal Extrem General: no pedal edema and no calf tenderness Psych Appearance: grossly normal Mental Status: mental status grossly normal Speech and Movement: speech and movement normal Mood: congruent mood Affect: normal affect Results Labs Result diagrams: 07/29/21 15:00 07/29/21 15:00 Labs: Laboratory Results - last 24 hr 0507/29/21 07/29/21 15:00 15:00 15:00 WBC 11.33 H RBC 5.01 Hgb 14.5 Hct 45.0 MCV 90 MCH 28.9 MCHC 32.2 RDW 13.0 Plt Count 279 MPV 8.4 Immature Gran % 0.4 Neutrophils % 76.8 Lymphocytes % 11.9 Monocytes % 10.1 Eosinophils % 0.4 Basophils % 0.4 Nucleated RBC % 0.0 Absolute Neutrophils 8.70 H Absolute Lymphocytes 1.35 Absolute Monocytes 1.14 H Absolute Eosinophils 0.05 Absolute Basophils 0.05 PT 10.4 INR 1.0 APTT 28.2 H Sodium 134 L Potassium 4.1 Chloride 100 Carbon Dioxide 25.1 Anion Gap 8.9 BUN 20 H Creatinine 1.4 H Estimated GFR/1.73 m2 49.27 Glucose 320 H Calcium 9.3 Magnesium 1.9 Total Bilirubin 0.6 AST 18 ALT 23 Alkaline Phosphatase 164 H Troponin I < 50 Total Protein 7.8 Albumin 3.6 TSH COVID-19 Source SARS-CoV-2 (PCR) 07/29/21 07/29/21 07/29/21 15:00 16:13 16:25 WBC RBC Hgb Hct MCV MCH MCHC RDW Plt Count MPV Immature Gran % Neutrophils % Lymphocytes % Monocytes % Eosinophils % Basophils % Nucleated RBC % Absolute Neutrophils Absolute Lymphocytes Absolute Monocytes Absolute Eosinophils Absolute Basophils PT INR APTT Sodium Potassium Chloride Carbon Dioxide Anion Gap BUN Creatinine Estimated GFR/1.73 m2 Glucose Calcium Magnesium Total Bilirubin AST ALT Alkaline Phosphatase Troponin I Cancelled Total Protein Albumin TSH 1.20 COVID-19 Source Nasal/Nares SARS-CoV-2 (PCR) Negative Last Vital Signs Temp 36.6 C 07/29/21 17:22 Pulse 160 H 07/29/21 17:39 Resp 20 07/29/21 17:22 BP 118/64 07/29/21 17:22 Pulse Ox 97 07/29/21 17:22
[2021-07-29 19:26] LABS: Troponin I < 50 ng/L (<or=60)
[2021-07-29] MEDS: Acetaminophen 325 MG TAB PO (20:17)
[2021-07-29] MEDS: Atorvastatin 40 MG TAB 80 MG PO (20:17)
[2021-07-29] MEDS: Heparin 5,000 UNITS/ML VIAL 5000 UNITS SC (20:17)
[2021-07-29] MEDS: Tamsulosin 0.4 MG CAPCR PO (21:38)
[2021-07-29] MEDS: Zolpidem 5 MG TAB PO (21:38)
[2021-07-29] MEDS: Losartan 25 MG TAB PO (21:38)
[2021-07-29] MEDS: Finasteride 5 MG TAB PO (21:57)
[2021-07-29 23:24] LABS: Troponin I < 50 ng/L (<or=60)
[2021-07-30] VITALS (69 sets, daily range): BP systolic 112–127; BP diastolic 65–70; PULSE 77–160; RESP 12–30; TEMP 36.2–37.2; O2SAT 94–95
[2021-07-30] MEDS: oxyCODONE 5 MG TAB PO ×3 (03:50→22:36)
[2021-07-30 06:55] LABS: Abs Immature Grans 0.04 10^3/uL (0.0-0.06); Absolute Basophil Count 0.05 10^3/uL (0.0-0.2); Absolute Eosinophil Count 0.08 10^3/uL (0.0-0.7); Absolute Lymphocyte Count 1.43 10^3/uL (1.2-3.4); Absolute Monocyte Count 1.02 10^3/uL (0.1-0.8); Basophils % 0.5; Eosinophils % 0.8; HCT 41.9 % (40.0-50.0); HGB 13.5 g/dL (13.5-17.5); Immature Grans % 0.4; Lymphocytes % 13.7; MCH 28.7 pg (27.0-33.0); MCHC 32.2 % (32.0-36.0); MCV 89 fL (80-95); MPV 8.2 fL (8.0-11.0); Monocytes % 9.8; Neutrophils % 74.8; Platelet Count 243 10^3/uL (130-400); RDW-SD 42.5 fL; WBC 10.42 10^3/uL (4.4-10.8)
--- NOTE | 2021-07-30 07:15 | PUCON_ITS ---
General Date Of Service Date of service: 07/30/21 Time of Service: 07:15 Assessment and Plan Assessment and plan (1) Liver mass: Status: Acute (2) Mass of left lung: Status: Acute (3) Hilar lymphadenopathy: Status: Acute (4) COPD (chronic obstructive pulmonary disease): Status: Chronic Assessment and plan: This is a 75 yo man with COPD who has been found to have a 3.3cm lung mass and bulky lymphadenopathy in addition to a concerning liver lesion. The liver lesion was present 10/2020 but unfortunately did not receive appropriate follow up. I am unable to assess whether the lung lesion was present at that time as well, but give the evolution of the liver mass, it is possible that this is a primary liver lesion or a primary lung lesion. It does appear as though the easiest biopsy site is the liver based on size. I would agree that IR biopsy of the liver lesion is preferred. Alternatively an EBUS with zoe could yield tissue sample from both the chest lymph nodes as well as the lung mass. There is no sense in undergoing basic bronchoscopy here as ultimately at the least the chest lymph nodes would have to be biopsied and I do not have EBUS capabilities at our facility. From a COPD perspective he has failed Spiriva handihaler therapy and so should be switched to the respimat formulation. Liver mass - agree with IR biopsy of liver mass - this can be set up to be done as an outpatient Lung mass and LAD - again would send for IR liver biopsy Emphysema - continue respimat Spiriva in hospital and I will work on the PA for outpatient use - continue albuterol prn - I will set up outpatient follow up with me History of Present Illness Narrative: This is a 75 yo man who is admitted left scapular pain and left upper chest pain found to be in SVT with self resolution. His work up ended up revealing a 3.3cm ANDREW mass with bulky adenopathy present. This is not easily visible on chest xray, but I can see the lung lesion on the health club manager image for his CT and when comparing this to a CXR he had in 2018, I do not see this mass. Her also has liver mass that is concerning for malignancy as well. On review of his imaging, he had the liver lesion 11/08/20 that was ordered for concern for a hernia that found a 3cm liver lesion that was noted not to be a cyst and a follow up liver phase CT or MRI was recommended, however I cannot see that this was completed. He holds a diagnosis of COPD and is on Spiriva and prn albuterol for this, but I do not see any PFT's. He does have emphysema on chest CT and states he was diagnosed with COPD in 2018. He quit smoking in approximately 200 and has a 60 pack year smoking history. He denies hemoptysis. He does endorse weight loss of almost 50lbs over the last couple of years that was unintentional. He also endorses fatigue recently. He has had a cough since having COVID and some chest tightness. He does not feel as though he is getting relief from the powder version of Spiriva but states that the respimat was denied by his insurance. Review of Systems All systems reviewed & are unremarkable except as noted in HPI and below PFSH All Active Problems (Updated 07/30/21 @ 07:22 by Keri Styles MD) Hilar lymphadenopathy (Acute) Liver mass (Acute) Nonsustained paroxysmal supraventricular tachycardia (Acute) Pleuritic chest pain (Acute) Mass of left lung (Acute) Rotator cuff tear arthropathy of right shoulder (Acute) Cervical stenosis of spinal canal (Acute) C7 Spinal stenosis at L4-L5 level (Acute) Incisional hernia (Acute) Vitreous floaters (Acute) Hematospermia (Acute) Right inguinal hernia (Acute) Venous insufficiency (Acute) Hyperlipidemia (Acute) Diabetic nephropathies (Acute) Rotator cuff syndrome (Acute) Postherpetic trigeminal neuralgia (Acute) Ventral hernia (Acute) Ascending aorta dilation (Acute) Osteoarthritis of left knee (Chronic) Osteoarthritis of right knee (Acute) BPH w urinary obs/LUTS (Acute) Cervical radiculopathy at C8 (Chronic) History of knee surgery (Chronic) Bilateral knee surgeries as a teenager per Patient to remove cartilage Diabetic polyneuropathy associated with type 2 diabetes mellitus (Acute 02/11/17) Bilateral foot-drop (Acute 02/11/17) Hx of hepatitis (Acute) Pt states in the 1970's w/treatment recieved Insomnia (Chronic) History of cardiac catheterization (Chronic) 09/20/2016 History of venous thromboembolism (Acute) 1975 Following left knee surgery as a teenager Coronary artery disease (Chronic) Narcotic abuse (Chronic) Cocaine Mitral regurgitation (Chronic) Myocardial infarction (Chronic) NSTEMI 09/20/2016 COPD (chronic obstructive pulmonary disease) (Chronic) High cholesterol (Chronic) Diabetes mellitus (Chronic) Depression (Chronic) Medical History DDD (degenerative disc disease), lumbar Thoracic ascending aortic aneurysm Surgical History History of umbilical hernia repair Reports 2 surgeries estimates late - Repair of inguinal hernia (02/25/17) Tear of left rotator cuff (08/09/18) s/p left RTC repair DOS: 09/07/18 Injected: 08/11/2018 Social History Smoking/Tobacco Use Status: Former Tobacco Use Tobacco: How many years used: 20 Smoking risk assessment performed?: Yes Alcohol Intake: current Alcohol Intake frequency: holidays/special occasions only Alcohol type: wine Drug use: Current Sobriety Substance use type: former substance user and crack/cocaine Details: Quit smoking 1997, states last used cocaine 09/18/16 after 10yr sober Current gender identity: male Do you feel safe at home: Yes Do you feel safe in your relationship?: Yes Visit Medication and Allergies Active Medications Generic Name Dose Route Start Last Admin Trade Name Freq PRN Reason Stop Dose Admin Acetaminophen 0 mg 07/29/21 16:25 07/29/21 20:17 Acetaminophen 325 Mg Tab PO 650 mg Q4H PRN PRN Administration Albuterol Sulfate 2.5 mg 07/29/21 16:20 Albuterol 2.5 Mg/3 Ml Inh Soln Vial UPD Q2H PRN PRN Aspirin 81 mg 07/30/21 08:30 Aspirin 81 Mg Chew PO DAILY PARKER Atorvastatin Calcium 80 mg 07/29/21 20:00 07/29/21 20:17 Atorvastatin 40 Mg Tab PO 80 mg QPM PARKER Administration Dextrose 0 gm 07/29/21 16:30 Glucose 40% Oral Solution 15 Gm/37.5 Gm Tube PO DIRECTED PRN Dextrose/Water 0 gm 07/29/21 16:30 Dextrose 50%-Water 25 Gm/50 Ml Syr IVP DIRECTED PRN Dimethicone/Zinc Oxide 0 gm 07/29/21 16:20 Long Protect Cream 142 Gm Tube TP PRN PRN Empagliflozin 25 mg 05/02/22 08:30 Empaglifozin 25 Mg Tab PO DAILY PARKER Finasteride 5 mg 07/29/21 22:00 07/29/21 21:57 Finasteride 5 Mg Tab PO 5 mg HS PARKER Administration Heparin Sodium (Porcine) 5,000 units 07/29/21 20:00 07/29/21 20:17 Heparin 5,000 Units/Ml Vial SC 5,000 units TID PARKER Administration Insulin Aspart 0 units 07/29/21 17:00 07/29/21 18:04 Insulin Aspart 300 Units/3 Ml Pen SC 10 units 0800,1200,1700 [facility] Administration Protocol Insulin Detemir 35 units 07/29/21 22:00 07/29/21 21:52 Insulin Detemir 300 Units/3 Ml Pen IJ 35 units HS PARKER Administration Iohexol 100 ml 07/29/21 16:00 07/29/21 15:49 Omnipaque 350 Mg/Ml 100 Ml Btl IJ 08/28/21 23:59 100 ml DIRECTED PARKER Administration Losartan Potassium 25 mg 07/29/21 22:00 07/29/21 21:38 Losartan 25 Mg Tab PO 25 mg HS PARKER Administration Metoprolol Succinate 25 mg 07/30/21 08:30 Metoprolol Cr 25 Mg Tabcr PO DAILY [facility] Non-Formulary Medication 1 cap 07/30/21 08:30 Tiotropium [place] [Spiriva With Handihaler] IH DAILY [facility] Oxycodone HCl 5 mg 07/30/21 03:29 07/30/21 03:50 Oxycodone 5 Mg Tab PO 5 mg Q4H PRN PRN Administration Pain Polyethylene Glycol 17 gm 07/29/21 16:25 Polyethylene Glycol 3350 17 Gm Packet PO DAILY PRN PRN Constipation Sodium Chloride 50 ml 07/29/21 16:00 07/29/21 15:48 Normal Saline 250 Ml Bag IJ 50 ml DIRECTED PARKER Administration Sodium Chloride 0 ml 07/29/21 15:50 07/29/21 20:17 Normal Saline Flush 10 Ml Syr IVP 10 ml PRN PRN Administration Tamsulosin HCl 0.4 mg 07/29/21 22:00 07/29/21 21:38 Tamsulosin 0.4 Mg Capcr PO 0.4 mg HS PARKER Administration Zolpidem Tartrate 5 mg 07/29/21 22:00 07/29/21 21:38 Zolpidem 5 Mg Tab PO 5 mg HS PARKER Administration Allergies No Known Allergies Allergy (Verified 07/29/21 14:48) Exam Narrative Exam Narrative: Gen: NAD, normal respiratory effort, well-nourished HENT: PERRL, nasal turbinates normal without erythema or inflammation, moist oral mucosa, Mallampati 2, No LAD or JVD Chest: No respiratory distress, normal appearance of chest, clear to auscultation bilaterally, no crackles or wheezes, normal inspiratory effort Heart: regular rate and rhythym, no murmurs, rubs or gallops Abdomen: Non-distended, soft, non tender Extremities: No clubbing, edema, cyanosis, rashes Neuro: AAOx3 , non focal Psych: cooperative, appropriate mental affect Results Last Vital Signs Temp 36.2 C L 07/30/21 03:20 Pulse 88 07/30/21 03:20 Resp 24 07/30/21 06:10 BP 127/66 07/30/21 03:20 Pulse Ox 94 07/30/21 03:20 Labs Result diagrams: 07/30/21 06:45 07/30/21 06:45 Labs: Laboratory Results - last 24 hr 07/29/21 07/29/21 07/29/21 15:00 15:00 15:00 WBC 11.33 H RBC 5.01 Hgb 14.5 Hct 45.0 MCV 90 MCH 28.9 MCHC 32.2 RDW 13.0 Plt Count 279 MPV 8.4 Immature Gran % 0.4 Neutrophils % 76.8 Lymphocytes % 11.9 Monocytes % 10.1 Eosinophils % 0.4 Basophils % 0.4 Nucleated RBC % 0.0 Absolute Neutrophils 8.70 H Absolute Lymphocytes 1.35 Absolute Monocytes 1.14 H Absolute Eosinophils 0.05 Absolute Basophils 0.05 PT 10.4 INR 1.0 APTT 28.2 H Sodium 134 L Potassium 4.1 Chloride 100 Carbon Dioxide 25.1 Anion Gap 8.9 BUN 20 H Creatinine 1.4 H Estimated GFR/1.73 m2 49.27 Glucose 320 H Calcium 9.3 Magnesium 1.9 Total Bilirubin 0.6 AST 18 ALT 23 Alkaline Phosphatase 164 H Troponin I < 50 Total Protein 7.8 Albumin 3.6 TSH COVID-19 Source SARS-CoV-2 (PCR) 07/29/21 07/29/21 07/29/21 15:00 16:13 16:25 WBC RBC Hgb Hct MCV MCH MCHC RDW Plt Count MPV Immature Gran % Neutrophils % Lymphocytes % Monocytes % Eosinophils % Basophils % Nucleated RBC % Absolute Neutrophils Absolute Lymphocytes Absolute Monocytes Absolute Eosinophils Absolute Basophils PT INR APTT Sodium Potassium Chloride Carbon Dioxide Anion Gap BUN Creatinine Estimated GFR/1.73 m2 Glucose Calcium Magnesium Total Bilirubin AST ALT Alkaline Phosphatase Troponin I Cancelled Total Protein Albumin TSH 1.20 COVID-19 Source Nasal/Nares SARS-CoV-2 (PCR) Negative 07/29/21 07/29/21 07/30/21 19:00 23:03 06:45 WBC 10.42 RBC 4.70 Hgb 13.5 Hct 41.9 MCV 89 MCH 28.7 MCHC 32.2 RDW 13.0 Plt Count 243 MPV 8.2 Immature Gran % 0.4 Neutrophils % 74.8 Lymphocytes % 13.7 Monocytes % 9.8 Eosinophils % 0.8 Basophils % 0.5 Nucleated RBC % 0.0 Absolute Neutrophils 7.80 H Absolute Lymphocytes 1.43 Absolute Monocytes 1.02 H Absolute Eosinophils 0.08 Absolute Basophils 0.05 PT INR APTT Sodium Potassium Chloride Carbon Dioxide Anion Gap BUN Creatinine Estimated GFR/1.73 m2 Glucose Calcium Magnesium Total Bilirubin AST ALT Alkaline Phosphatase Troponin I < 50 < 50 Total Protein Albumin TSH COVID-19 Source SARS-CoV-2 (PCR)
[2021-07-30 07:18] LABS: Anion Gap 11.4 mmol/L (3-11); BUN 18 mg/dL (7-18); CO2 21.6 mmol/L (21.0-32.0); CREATININE 1.1 mg/dL (0.70-1.30); Chloride 103 mmol/L (98-107); Glucose 172 mg/dL (74-106); Potassium 4.3 mmol/L (3.5-5.1); Sodium 136 mmol/L (136-145)
--- NOTE | 2021-07-30 08:53 | PGE_ITS ---
Date of Service Date of service: 07/30/21 Time of Service: 08:53 Assessment and Plan Assessment and plan (1) Nonsustained paroxysmal supraventricular tachycardia: Status: Acute Assessment and plan: Titration of his Toprol-XL dose. May need to add some diltiazem as well. We will hold off anticoagulation at this point as it appears his rhythm is SVT and not A. fib and furthermore the patient will be sent for liver biopsy in the near future. 45 minutes spent reviewing his studies, interviewing and examining the patient and discussing his case w/ the supervisor coin machine/CCM, nursing and [facility] (2) Liver mass: Status: Acute Assessment and plan: Phone consultation requested with IR radiology from [facility]. (3) Mass of left lung: Status: Acute Assessment and plan: Dr. Styles agrees to hold off doing a bronchoscopy and biopsy pending results of his liver biopsy. She will follow-up with him for his lung mass and his COPD (4) Diabetes mellitus: Status: Chronic Assessment and plan: Blood sugars running from 137 upwards to 217. Patient is currently on Levemir 35 units at night along with NovoLog moderate dose sliding scale. Glycohemoglobin A1c is pending at this time (5) COPD (chronic obstructive pulmonary disease): Status: Chronic Assessment and plan: Patient remains on Spiriva. He has albuterol updrafts as needed but has not req uired them. I will DC the albuterol in favor of Xopenex to decrease the risk for exacerbation of his PSVT. Says at home he hardly ever has to use his albuterol. Patient will follow with Dr. Styles upon discharge. (6) Coronary artery disease: Status: Chronic Assessment and plan: Patient's had no anginal quality chest pain. Troponin levels were negative on admission. Patient reports he had a remote ME and had a subsequent cardiac cath was found to have a very small thrombosis in a distal vessel for which he had a either thrombectomy or lysis of the clot. He denies any history of coronary stents. His home medications did not include a beta-reyna but did include an aspirin but no statins. He is on losartan at home for blood pressure.Last echocardiogram was performed 11/07/2020 and demonstrated normal left ventricular size and function with an EF of 59% with no wall motion abnormalities. RV size and function was normal. RVSP was 32 mm. Left atrium and right atrium were normal in size. He has a moderate to severely dilated ascending aorta measuring 4.4 cm with no dissection. There been no change from his previous echocardiogram from a year prior on 11/17/2019. There is no evidence for diastolic dysfunction. He has been followed in the past by Dr. Иван Henson and now follows up with Dr. Ling Nicolas. Subjective Subjective Interval history since last seen: Patient presented to hospital with left-sided pleuritic chest pain. He ruled out for acute ME. Does have a history of COPD and diabetes mellitus as well as coronary artery disease. He is not on home oxygen. Subsequent work-up demonstrated a 3.3 cm left upper lung mass with hilar adenopathy. Upper images of his abdomen from his CT scan showed a 5.5 cm liver mass in the left lobe as well as some smaller hepatic nodules. Apparently he had some abnormal findings in October 2020 for which a follow-up MRI scan was recommended. During this admission he has had problems with PSVT with heart rates up into the 170s to 180s. These seem to occur with activity and calm down with rest or vagal maneuvers. He has been started on Toprol-XL 25 mg daily. I discussed his case with Dr. Keri Botello, supervisor coin machine/critical care medicine who is reviewed his films and she recommends that he be referred to IR radiology for a liver biopsy. If the liver biopsy confirms that this is a pulmonary origin that he would be considered stage IV lung cancer. Patient understands all this he was this was explained to him by Dr. Botello. I placed a call to [facility] to request an IR radiology consultation. He does not necessarily need to stay here to have the biopsy done but this can be done as an outpatient once his PSVT rate is controlled. Presently patient denies any chest pain or shortness of breath he does have an occasional cough of clear mucus. He is afebrile. He still having some runs of PSVT with heart rates up in the 170s to 180s that are short-lived lasting no more than 4 seconds. He is able to bring the heart rate down with vagal maneuvers such as coughing or bearing down. Exam Narrative Exam Narrative: Mr. Abad is sitting up in his chair he is alert he is oriented person place time circumstance. Lungs are clear to auscultation Heart is regular but with activity he will become very tachycardic and regular but with coughing or bearing down he brings his heart rate back down into the 90s. Extremities without edema. He has some dependent rubor of his feet. Objective Last Vital Signs Temp 36.2 C L 07/30/21 03:20 Pulse 88 07/30/21 03:20 Resp 28 H 07/30/21 08:20 BP 127/66 07/30/21 03:20 Pulse Ox 94 07/30/21 03:20 Laboratory Results - last 24 hr 07/29/21 07/29/21 07/29/21 15:00 15:00 15:00 WBC 11.33 H RBC 5.01 Hgb 14.5 Hct 45.0 MCV 90 MCH 28.9 MCHC 32.2 RDW 13.0 Plt Count 279 MPV 8.4 Immature Gran % 0.4 Neutrophils % 76.8 Lymphocytes % 11.9 Monocytes % 10.1 Eosinophils % 0.4 Basophils % 0.4 Nucleated RBC % 0.0 Absolute Neutrophils 8.70 H Absolute Lymphocytes 1.35 Absolute Monocytes 1.14 H Absolute Eosinophils 0.05 Absolute Basophils 0.05 PT 10.4 INR 1.0 APTT 28.2 H Sodium 134 L Potassium 4.1 Chloride 100 Carbon Dioxide 25.1 Anion Gap 8.9 BUN 20 H Creatinine 1.4 H Estimated GFR/1.73 m2 49.27 Glucose 320 H Calcium 9.3 Magnesium 1.9 Total Bilirubin 0.6 AST 18 ALT 23 Alkaline Phosphatase 164 H Troponin I < 50 Total Protein 7.8 Albumin 3.6 TSH COVID-19 Source SARS-CoV-2 (PCR) 07/29/21 07/29/21 07/29/21 15:00 16:13 16:25 WBC RBC Hgb Hct MCV MCH MCHC RDW Plt Count MPV Immature Gran % Neutrophils % Lymphocytes % Monocytes % Eosinophils % Basophils % Nucleated RBC % Absolute Neutrophils Absolute Lymphocytes Absolute Monocytes Absolute Eosinophils Absolute Basophils PT INR APTT Sodium Potassium Chloride Carbon Dioxide Anion Gap BUN Creatinine Estimated GFR/1.73 m2 Glucose Calcium Magnesium Total Bilirubin AST ALT Alkaline Phosphatase Troponin I Cancelled Total Protein Albumin TSH 1.20 COVID-19 Source Nasal/Nares SARS-CoV-2 (PCR) Negative 07/29/21 07/29/21 07/30/21 19:00 23:03 06:45 WBC RBC Hgb Hct MCV MCH MCHC RDW Plt Count MPV Immature Gran % Neutrophils % Lymphocytes % Monocytes % Eosinophils % Basophils % Nucleated RBC % Absolute Neutrophils Absolute Lymphocytes Absolute Monocytes Absolute Eosinophils Absolute Basophils PT INR APTT Sodium 136 Potassium 4.3 Chloride 103 Carbon Dioxide 21.6 Anion Gap 11.4 H BUN 18 Creatinine 1.1 Estimated GFR/1.73 m2 >= 60.00 Glucose 172 H Calcium 9.0 Magnesium Total Bilirubin AST ALT Alkaline Phosphatase Troponin I < 50 < 50 Total Protein Albumin TSH COVID-19 Source SARS-CoV-2 (PCR) 07/30/21 06:45 WBC 10.42 RBC 4.70 Hgb 13.5 Hct 41.9 MCV 89 MCH 28.7 MCHC 32.2 RDW 13.0 Plt Count 243 MPV 8.2 Immature Gran % 0.4 Neutrophils % 74.8 Lymphocytes % 13.7 Monocytes % 9.8 Eosinophils % 0.8 Basophils % 0.5 Nucleated RBC % 0.0 Absolute Neutrophils 7.80 H Absolute Lymphocytes 1.43 Absolute Monocytes 1.02 H Absolute Eosinophils 0.08 Absolute Basophils 0.05 PT INR APTT Sodium Potassium Chloride Carbon Dioxide Anion Gap BUN Creatinine Estimated GFR/1.73 m2 Glucose Calcium Magnesium Total Bilirubin AST ALT Alkaline Phosphatase Troponin I Total Protein Albumin TSH COVID-19 Source SARS-CoV-2 (PCR)
[2021-07-30] MEDS: Aspirin 81 MG CHEW PO (09:03)
[2021-07-30] MEDS: Insulin Aspart 300 UNITS/3 ML PEN SC ×3 (09:03→17:02)
[2021-07-30] MEDS: Tiotropium Bromide-Respimat 10 PUFF INH 2 PUFF IH (09:03)
[2021-07-30] MEDS: Empaglifozin 25 MG TAB PO (09:03)
[2021-07-30] MEDS: Heparin 5,000 UNITS/ML VIAL 5000 UNITS SC ×3 (09:04→21:33)
[2021-07-30] MEDS: Metoprolol CR 50 MG TABCR PO (09:12)
--- NOTE | 2021-07-30 10:18 | PDOC.CMIN ---
- If Service Date Differs Date of service: 07/30/21 Time of Service: 10:18 Care Management Initial Assess REASON FOR HOSPITALIZATION:: Supraventricular Tachycardia, Lung Mass PAST MEDICAL HISTORY/PAST SURGICAL HISTORY:: Medical History . DDD (degenerative disc disease), lumbar. Thoracic ascending aortic aneurysm. Surgical History . History of umbilical hernia repair. Reports 2 surgeries. estimates late -1999s. Repair of inguinal hernia (02/25/17). Tear of left rotator cuff (08/09/18). s/p left RTC repair DOS: 09/07/18. Injected: 08/11/2018 PREVIOUS FUNCTIONAL STATUS/SOCIAL/FAMILY SUPPORTS:: Simone resides in [facility] with his , Caroline. He is independent at baseline, with a supportive daughter, Alex ([phone]) as well. ADVANCE DIRECTIVES:: None on file. Has patient been provided with info about the portal/API?: Yes Did the patient sign up for the portal?: Yes CODE STATUS:: Full Code INSURANCE COVERAGE / FINANCIAL ISSUES:: [facility]. [employer] CURRENT HOME/COMMUNITY SERVICES/EQUIPMENT:: None, currently. PRIMARY CARE PHYSICIAN:: Simone Ratliff POTENTIAL DISCHARGE NEEDS:: Possible biopsy with Dr. Styles or referral for procedure elsewhere. Follow up appointments. PATIENT/FAMILY EDUCATION NEEDS:: Review discharge instructions, discuss Ask Me Three. ANTICIPATED BARRIERS TO DISCHARGE:: None identified. TRANSPORTATION:: Via private vehicle with family. PLAN:: Simone will return home when ready per MD. He will follow up with his PCP and outpatient services as prescribed. He will transport via private vehicle with family.
[2021-07-30 11:43] LABS: Hemoglobin A1C 8.3 % (<5.7)
--- NOTE | 2021-07-30 13:45 | PHA.REVIEW ---
Pharmacy Admission Review - Admission Clinical Review (Last Updated 07/30/21 @ 09:29 by Ousmane Ortiz) Hilar lymphadenopathy (Acute) Liver mass (Acute) Nonsustained paroxysmal supraventricular tachycardia (Acute) Pleuritic chest pain (Acute) Mass of left lung (Acute) Incisional hernia (Acute) Hyperlipidemia (Acute) Diabetic polyneuropathy associated with type 2 diabetes mellitus (Acute 02/11/17) No Known Allergies Allergy (Verified 07/29/21 14:48) Resuscitation Status Full Code Height 5 ft 11 in Weight 75 kg - Comments Comments/Follow Ups: Tachycardia controlled with addition of beta reyna, does not have A-fib per MD note/EKG but rather Paroxysmal supraventricular tachy. Will have outpt liver biopsy @ [facility]. Ruled out [place]. Recent COVID treatment with Paxlovid, has COPD - Renal Dosing Renal Dosing: BUN 18 mg/dL (7-18) 07/30/21 06:45 Creatinine 1.1 mg/dL (0.70-1.30) 07/30/21 06:45 Medications needing adjustments: Reviewed (CrCl~60ml/min, improved overnight) - Anticoagulation Anticoagulation: Hgb 13.5 g/dL (13.5-17.5) 07/30/21 06:45 Hct 41.9 % (40.0-50.0) 07/30/21 06:45 Plt Count 243 10^3/uL (130-400) 07/30/21 06:45 INR 1.0 (0.9-1.1) 07/29/21 15:00 Creatinine 1.1 mg/dL (0.70-1.30) 07/30/21 06:45 DVT Prophylaxis: Reviewed Medications: Heparin - Opiate Usage Evaluate Pain Scale/Pains Meds: Reviewed (Pain 3-7 chest discomfort) Scheduled Bowel Reg ordered if on Opiates?: No (prn Miralax ) - Relevant Labs Sodium 136 mmol/L (136-145) 07/30/21 06:45 Potassium 4.3 mmol/L (3.5-5.1) 07/30/21 06:45 Chloride 103 mmol/L (98-107) 07/30/21 06:45 Magnesium 1.9 mg/dL (1.8-2.4) 07/29/21 15:00 Electrolytes, C-Reactive P, ESR: Reviewed - DM Control DM Control: Glucose 172 mg/dL (74-106) H 07/30/21 06:45 Hemoglobin A1c 8.3 % (<5.7) H 07/30/21 06:45 Finger Stick Blood Glucose 165 Finger Stick Blood Glucose 165 Finger Stick Blood Glucose 159 Finger Stick Blood Glucose 159 Insulin Dosing: Reviewed (Levemir, Novolog-moderate scale, Jardiance) - Heart Failure/ND Heart Failure/ND: Troponin I < 50 ng/L (<or=60) 07/29/21 23:03 EF%, GUSTAVO's, B-Blockers, Diuretics: Reviewed (Losartan, Metoprol XL and IVP prn HR>140) - BP Control BP Control: Blood Pressure 127/66 Blood Pressure 127/66 If elevated: Reviewed (Metoprolol ER increased today) - Qtc Review If Elevated: Reviewed (taken but not reported) - Home Meds Home Med List reviewed: Reviewed (Metformin-not needed at this time, Bydureon inj (once weekly) not needed, being stored in pharmacy refrigerator until discharge) - Current meds Current Medication Order Review: Reviewed (Spiriva handihaler substituted with Spriva respimat, Toprol initiation is a new med for him)
[2021-07-30] MEDS: Atorvastatin 40 MG TAB 80 MG PO (21:34)
[2021-07-30] MEDS: Zolpidem 5 MG TAB PO (21:34)
[2021-07-30] MEDS: Tamsulosin 0.4 MG CAPCR PO (21:34)
[2021-07-30] MEDS: Finasteride 5 MG TAB PO (21:35)
[2021-07-30] MEDS: Losartan 25 MG TAB PO (21:46)
[2021-07-31] VITALS (8 sets, daily range): BP systolic 103–117; BP diastolic 69–75; PULSE 73–131; RESP 16–19; TEMP 36.5–37.2; O2SAT 92–96
--- NOTE | 2021-07-31 | DI.US_ITS ---
APPROVED REPORT EXAM: Comprehensive 2D, Doppler, and color-flow Echocardiogram Patient Location: In-Patient Room/Bed: [address] Machine Tender: Theresa Torrez RDCS (AE) Indications: PSVT, Evaluate LV, CAD Other Information Study Quality: Good Conclusion Normal left ventricular wall thickness and chamber size. Estimated ejection fraction is 55 to 60%. Wall motion is normal Normal right ventricular size and systolic function Both atria are normal in size There is no structural or hemodynamically significant valvular disease Estimated right ventricular systolic pressure is 33 mmHg Dilated ascending aorta measuring 4.31 cm Wall motion Left Ventricle The left ventricle is normal size. The left ventricular systolic function is normal. The left ventric ular ejection fraction is within the normal range. There is normal left ventricular wall thickness. T here is normal LV segmental wall motion. There is no ventricular septal defect visualized. LVEF is 58 %. Right Ventricle The right ventricle is normal size. The right ventricular systolic function is normal. The RVSP is 33 .0mmHg. Atria The left atrium size is normal. The right atrium size is normal. The interatrial septum is intact wit h no evidence for an atrial septal defect. Aortic Valve The aortic valve is normal in structure. Aortic valve is trileaflet. There is no aortic valvular sten osis. No aortic regurgitation is present. Mitral Valve The mitral valve is normal in structure. No evidence of mitral valve stenosis. Trace to mild mitral r egurgitation. Tricuspid Valve The tricuspid valve is normal in structure. There is no tricuspid valve stenosis. Mild tricuspid regu rgitation. Pulmonic Valve The pulmonary valve is normal in structure. There is no pulmonic valvular stenosis. There is no pulmo carlos valvular regurgitation. Great Vessels The aortic root is normal in size. The ascending aorta is moderately dilated.4.31 cm Aortic arch is n ot well visualized. IVC is normal in size and collapses >50% with inspiration. Pericardium There is no pericardial effusion. 2D Dimensions IVSD d PLAX 1.00 cm M: 0.6-1.2 LV Vol A2C d MOD 84.6 mL LVPW d PLAX 1.00 cm M: 0.6 - 1.2 LV Vol A4C d MOD 85.5 mL LVID d PLAX 4.50 cm M: 4.2 - 5.8 LA vol/ BSA A2C s A-L 21.9 mL/m2 LVDs 3.00 cm M: 2.5 - 4.0 LA vol/ BSA A4C s A-L 25.3 mL/m2 Ao Root d 3.48 cm M: 3.1 - 3.7 LA Vol/ BSA Biplane s A-L 23.7 mL/m2 RA Area A4C 16.35 cm2 LA Area A4C s MOD 18.00 cm2 RA Vol/ BSA A4C s A-L 23.1 mL/m2 LA Area A2C s MOD 16.86 cm2 Ao Asc Diam d 4.31 cm M: 2.6 - 3.4 LV EF A4C MOD 57.2 % LV EF Teichholz 60.6 % LV EF A2C MOD 58.8 % LVEF (Escamilla's) 57.27 % M: 52 - 72 LV EF Biplane MOD 57.3 % LV Volume 65.87 mL M: 62 - 150 SV 49.81 mL LV Volume Index 33.95 mL/m2 M: 34 - 74 SV Index 25.63 mL/m2 LV Vol Biplane MOD 87.0 mL FS 32.20 % M-Mode TAPSE 2.12 cm (M/F) >1.7 LV Diastology MV E' medial 0.068 (>0.07 m/s) E/A Ratio 0.8 LV E/e MED 8.85 (<14) MV E Vmax 0.61 (0.4-1.3 m/s) MV E' lateral 0.079 (>0.1 m/s) MV A Vmax 0.80 (0.4-1.3 m/s) LV E/e LAT 7.60 (<14) MV E/A Ratio 0.73 MV E/E' medial 8.88 MV E/E' lateral 7.65 Aortic Valve LVOT Area 3.56 cm2 AoV Area Vmax 2.77 cm2 LVOT Vmax 0.97 m/s AoV Area/ BSA (Vmax) 1.43 cm2/m2 LVOT Mean Dexter. 0.65 m/s TYRESE Mean Dexter. 2.67 cm2 LVOT Peak Grad 3.8 mmHg TYRESE Mean Dexter. Index 1.37 cm2/m2 LVOT Mean Grad 2.0 mmHg LVOT VTI 0.189 m LVOT Diam s 2.10 cm AoV Vmax 1.25 m/s Velocity Ratio 0.77 AoV Mean Dexter. 0.87 m/s AoV Peak Grad 6.2 mmHg LVOT SV 67.37 mL AoV Mean Grad 3.4 mmHg AoV VTI 0.223 m AoV Area VTI 3.02 cm2 AoV Area/ BSA (VTI) 1.55 cm/m2 Mitral Valve MV DT 296 (160-240 msec) MV PHT 86 msec MV Area PHT 2.57 cm2 MV VTI 0.244 m MV Area VTI 2.76 (4.0-6.0 cm2) Pulmonary Valve PV Vmax 0.93 (0.5-1.5 m/s) RVOT Peak Gr. 2.21 mmHg PV Peak Grad 3.5 mmHg RVOT Mean Gr. 1.05 mmHg PV Mean Grad 1.7 mmHg RVOT VTI 0.120 m PV VTI 0.146 m RVOT Vmax 0.74 m/s Tricuspid Valve TR Peak Grad 29.9 mmHg TR Vmax 2.74 m/s RA Pressure 3.00 mmHg RVSP (TR) 33.0 mmHg
[2021-07-31] MEDS: Tiotropium Bromide-Respimat 10 PUFF INH 2 PUFF IH (07:39)
[2021-07-31] MEDS: Heparin 5,000 UNITS/ML VIAL 5000 UNITS SC ×2 (07:57→14:35)
[2021-07-31] MEDS: Metoprolol CR 50 MG TABCR PO ×2 (07:57→09:55)
[2021-07-31] MEDS: Aspirin 81 MG CHEW PO (07:57)
[2021-07-31] MEDS: Insulin Aspart 300 UNITS/3 ML PEN SC ×2 (07:57→12:15)
[2021-07-31] MEDS: Empaglifozin 25 MG TAB PO (07:57)
--- NOTE | 2021-07-31 10:56 | W.INDIABCONS ---
Date of service: 07/31/21 Time of Service: 10:56 Diabetes Inpatient Consult Reason for Visit: dm DESCRIPTION/ASSESSMENT: 75 year old male admitted with liver/lung mass (?) with hx of Dm2. Recent A1C: 8.3%(07/30/21) indicates mildly elevated blood sugars on current home Dm meds (jardiance, 35 u levemir). Following diabetic diet and meeting macronutrient needs at this time. Asleep at time of visit today. INTERVENTION: none at this time PLAN: Will monitor po intake, labs and support prn. Time Spent in Nutritional Counseling and Treatment: 0
[2021-07-31] MEDS: oxyCODONE 5 MG TAB PO (11:21)
--- NOTE | 2021-07-31 14:35 | CHAPLAIN ---
Simone was up in the chair when I visited. He was very pleasant and easily engaged in a conversation. He said his and son have been taking turnings visiting him. He was told he'd see the hospitalist in the morning and he had seen the hospital by 2 p.m., so that was frustrating for him.
--- NOTE | 2021-07-31 15:05 | NUR.NOTE ---
Michelle RN called to [facility] to talk to nursing service director about 4 min run of atrial bigeminy.
--- NOTE | 2021-07-31 15:59 | W.PM.PROGNOT ---
Date of Service Date of service: 07/31/21 Time of Service: 15:59 Objective Last Vital Signs Temp 37.2 C 07/31/21 15:19 Pulse 131 H 07/31/21 15:46 Resp 16 07/31/21 15:19 BP 103/75 07/31/21 15:19 Pulse Ox 95 07/31/21 15:19
--- NOTE | 2021-07-31 16:58 | CMDISCH_ITS ---
- If Service Date Differs Date of service: 07/31/21 Time of Service: 16:59 LACE Index Scoring Tool - Questions: Length of Stay (in days): 2 Acuity (Admit via E.D.?): Yes Comorbidities: Previous M.I., Diabetes w/o Complication, Chronic Pulmonary Disease E.D. Visits: 1 - Answers: Total Score: 11 Risk of Readmission: High Risk Care Management Discharge Reason for Hospitalization: Supraventricular Tachycardia, Lung Mass Discharge Plan: Simone will return home when ready per MD. He will follow up with his PCP and outpatient services as prescribed-including [email or web address] Ratliff and [facility]. He will transport via private vehicle with family. Patient/Family Education Needs: Review discharge instructions, discuss Ask Me Three.
--- NOTE | 2021-07-31 16:58 | W.PM.DS.N ---
Date of service: 07/31/21 Time of Service: 16:59 DS: Diagnosis Discharge Diagnosis (1) Nonsustained paroxysmal supraventricular tachycardia: Status: Acute Asessment and Plan: Patient started on metoprolol XL 25 mg nightly this was titrated up to 100 mg every morning. Patient tolerated the dose well which seem to control his atrial dysrhythmias quite well. He will be discharged home with an order for a 14-day cardiac event recorder. Unfortunately could not be put on at the time of discharge as it will require prior authorization by his PCP. (2) Liver mass: Status: Acute Asessment and Plan: Patient had a CTA of his chest which showed no pulmonary embolism. He has a stable ascending thoracic aortic aneurysm of 3.9 cm without dissection. On the upper images of his abdomen from the CTA of his chest a mass is seen in the left lobe of his liver measuring 5.5 cm. 2 smaller lesions are seen more superiorly in the right lobe suspicious for metastatic disease. Chest portion of his CTA showed suspicious partially spiculated mass in the left upper lobe consistent with malignancy along with multiple other small scattered nodules in both lungs along with emphysematous changes. Former CT of the abdomen was not performed during this hospitalization. However it is noted that a previous CT of his abdomen pelvis had been performed in November 08, 2020 and this had shown a 3 cm low-attenuation lesion in the anterior left lobe of his liver. Based on these findings it is suspected that he has stage IV lung cancer. Written request to [facility] interventional radiology as well as multiple phone calls to [facility] were [place] during this hospitalization. [facility] [place] the patient up for an IR guided liver biopsy scheduled for August 17, 2021 at 1:30 PM. Patient and his and daughter were notified. The results will be sent to his primary care provider and to Dr. Styles. When results are available he should be set up to follow-up with oncology at [facility]. (3) Mass of left lung: Status: Acute Asessment and Plan: Presumed metastatic lung CA based on CT findings as above. Dr. Keri Styles safety instruction police officer was consulted regarding his lung mass and liver mass. She reviewed the previous CT of the abdomen pelvis along with his current CT of his chest and indicated that the liver lesion was probably present on the prior film from October 2020 but she was unable to assess for the lung lesion was also present at that time. Given the current extension of his findings on his current films she felt that the easiest biopsy site would be the liver based on the size and location and recommended interventional radiology biopsy of the liver lesion as the preferred sampling site. Alternatively suggested that an endoscopic bronchoscopic ultrasound with biopsy for both the chest lymph nodes as well as lung mass. However EBUS capabilities were not available at our facility. (4) Diabetes mellitus: Status: Chronic Asessment and Plan: No change was made to his diabetic medications. (5) COPD (chronic obstructive pulmonary disease): Status: Chronic Asessment and Plan: Dr. Styles recommended changing his Spiriva HandiHaler to the Respimat formulation however this requires a prior authorization and she indicated that she would try to obtain prior authorization as an outpatient. (6) Coronary artery disease: Status: Chronic Discharge Plan Disposition Patient Disposition: HOME Condition: Serious Discharge Details Reason For Visit: Supraventricular Tackycardia,Lung Mass Admit Date/Time: 07/29/21 16:22 Admit Provider: Adalberto Lee Attending Provider: Adalberto Lee [facility] Course: is a 75-year-old male with a past medical history of CAD, thoracic ascending aortic aneurysm, COPD, HDL, DM 2 with neuropathy, PAD who recovered from COVID-19 1 month prior to presentation. He has had 3 weeks of left upper chest and left scapular area pain that is worsened which is led to his presentation on July 29, 2021 emergency department. There is no history of trauma. On arrival to emergency department EKG demonstrated SVT at a rate of 157 bpm. SVT resolved spontaneously in the ER with an EKG demonstrating normal sinus rhythm at rate 97 bpm. However he had 2 further episodes of SVT H in the 150s but again each time converting back to normal sinus rhythm with a heart rate in the 80s to 90s. On arrival electrolytes are within normal limits blood sugar was elevated [address] of the chest was performed showed no pulmonary embolism but he was found to have a 3.3 cm left upper lobe lung mass highly suspicious for malignancy there is associated liver hilar adenopathy and there was also noted to be liver lesion suspicious for distant metastasis. Initially he was admitted observation on telemetry. Patient was started on Toprol-XL 25 mg at nighttime. Pulmonary consultation was obtained with Dr. Keri Botello regarding the lung mass and after she reviewed his previous CT scan from October 2020 and his current chest CT she recommended holding off performing bronchoscopy with biopsies and instead recommend referral to interventional radiology for liver biopsy. See her consultation note for details. Serial troponin levels were measured and all found to be negative for ischemia. Echocardiogram was performed and showed normal left ventricular size and function with an left ventricular ejection fraction of 55 to 60% with no wall motion abnormalities. RV size and function were normal. Both atria were normal in size. Patient had no hemodynamically significant valvular disease. He had a stable ascending dilated thoracic aortic aneurysm measuring 4.31 cm. Phone consultation was requested through [facility] for an interventional radiology outpatient appointment. An IR appointment for liver biopsy was obtained and scheduled for August 17, 2021 at 1:20 PM Patient continued to have paroxysmal episodes of supraventricular tachycardia with heart rates up to 170 bpm most notable with activity. His Toprol-XL was uptitrated to as high as 100 mg daily which seemed to control his runs of SVT. On the day of discharge I personally ambulated the patient 150 feet while I monitored his pulse oximetry and he had normal oxygen saturation between 94 to 96% and his heart rate remained no higher than 90 bpm I had the intensive care unit nurses monitor his telemetry and they only saw occasional PACs with activity but no runs of SVT or ventricular ectopy. As the patient was asymptomatic and desiring to return home the patient was discharged home with a prescription for Toprol-XL 100 mg daily. During his hospitalization his left-sided chest pains were controlled with oxycodone 5 mg tablets they were ordered every 4 hours as needed but he was going sometimes as long as 8 hours between pain medications. Patient was discharged in much improved condition the patient was set up to follow-up with Dr. Simone Ratliff his primary care provider on August 08, 2021 at 10:50 AM as well as his interventional radiology appointment on 08/17/2021 at 1:20 PM. He is to follow-up with Dr. Keri Styles in the office on 10/09/2021 at 2 PM. Discharge prescriptions include metoprolol XL 100 mg 1 daily as well as prescription for oxycodone 5 mg orally every 4 hours as needed for pain prescription for number 30 tablets was written along with a prescription for naloxone 4 mg intranasal every 3 minutes as needed for unresponsiveness due to narcotic overdose. Home Meds and New Rx's Prescriptions: New metoprolol succinate 100 mg tablet extended release 24 hr 100 mg PO DAILY Qty: 30 1RF oxycodone 5 mg tablet 5 mg PO Q4H PRNQty: 30 0RF Rx Instructions: one tablet by mouth every 4 to 6 hr prn pain; not to exceed 6 tabs per day naloxone 4 mg/actuation spray,non-aerosol 4 mg intranasal Q3M PRNQty: 2 1RF Rx Instructions: spray 1 dose into ONE nostril; alternate nostrils w each dose until help arrives Continued albuterol sulfate [ProAir HFA] 90 mcg/actuation HFA aerosol inhaler 2 puff IH Q6H PRN0RF finasteride 5 mg tablet 5 mg PO HS 0RF atorvastatin [Lipitor] 80 MG tablet 80 mg PO HS 0RF nitroglycerin [Nitrostat] 0.3 MG tablet, sublingual 0.3 mg Sublingual ONCE 0RF (DME) OneTouch Ultra Test 1 EACH strip 1 ea Miscellaneous DAILY 0RF aspirin 81 MG tablet,chewable 81 mg PO DAILY 0RF zolpidem 5 MG tablet 5 mg PO HS 0RF (DME) NovoFine 30 1 EACH needle 1 ea Miscellaneous HS 0RF (DME) OneTouch Ultra Test 1 EACH strip 1 ea Miscellaneous 0RF sildenafil [Viagra] 50 mg tablet 50 mg PO DAILY PRN0RF Rx Instructions: administer 30 minutes to 4 hours before activity Jardiance 25 mg tablet 25 mg PO DAILY 0RF Bydureon BCise 2 mg/0.85 mL auto-injector 2 mg subcut QWEEK 0RF Spiriva with HandiHaler 18 mcg capsule, w/inhalation device 1 cap inhalation DAILY 0RF Rx Instructions: puncture 1 cap using device; one dose = 2 inhalations Spiriva Respimat 2.5 mcg/actuation mist 2 puff inhalation DAILY Qty: 4 8RF metformin [Glucophage] 1,000 MG tablet 1,000 mg PO BID 0RF Label Comments: 02/14/17 pt asked to not take 02/24/17 pm dose and no am dose on 02/25, may resume after surgery, pt verbalized understanding DCW Levemir FlexTouch U-100 Insuln 100 unit/mL (3 mL) insulin pen 35 unit IJ HS 0RF Label Comments: 01/1717 pt asked to take only half the night before nothing in the am of 02/25/17 DCW 1.24.19 pt records show 25U subQ @ HS.HE tamsulosin [Flomax] 0.4 mg capsule 0.4 mg PO HS 0RF losartan 25 mg tablet 25 mg PO HS 0RF Discharge Instructions Instructions: Naloxone (Into the nose), Supraventricular Tachycardia (DC), Opioid Safety (DC) Additional Instructions: You have been treated for an atrial arrhythmia known as supraventricular tachycardia. This most likely has been caused by your underlying COPD along with your lung tumor. Your echocardiogram of your heart showed normal sized heart and normal heart function however your COPD and your lung tumor can precipitate atrial arrhythmias. You were started on metoprolol XL and this dose was titrated up to 100 mg daily. You are being sent home with a new prescription for metoprolol XL 100 mg once a day. A prolonged cardiac event recorder has been ordered and respiratory therapy will call you with a date and time when to have the monitor applied. Case management has arranged for you to have a visit with interventional radiology at [facility] to obtain a liver biopsy. Please do not take any aspirin or anti-inflammatory medications such as Motrin or ibuprofen or Advil or Aleve or Naprosyn for 1 week prior to the procedure. You may take oxycodone as needed for pain. A new prescription has been given to you for oxycodone 5 mg tablets 1 tablet every 4-6 hours as needed for pain. If you need further pain medications you should contact your primary care provider for any refills. I have given you a prescription adequate to last you for the next 5 to 6 days. I have also prescribed naloxone nasal spray. This is a medication that is to be used in the event of an emergency in which you have taken too much pain medications and are unresponsive. Your family members should familiarize himself with the use of naloxone which can be sprayed into nostril to counteract the effects of any excessive narcotic pain medication. No changes were made in the rest your medications for your diabetes or hypertension or BPH or COPD. You should follow-up with Dr. Keri Styles regarding your lung tumor and COPD. Once the results of your liver biopsy have been obtained your primary care provider should obtain a follow-up with an oncologist to discuss treatment options for your lung tumor and liver tumor. Stand Alone Forms: Nursing Discharge Form Referrals: [facility] [Outside] - 08/17/21 1:20 pm (Interventional radiology with 120pm appt arrival) Keri Styles MD [ [facility] STAFF PHYSICIAN] - 10/09/21 2:00 pm Simone Ratliff [Primary Care Provider] - 08/08/21 10:50 am () Activity:: Activity as Tolerated Equipment/Supplies:: No Equipment Needed Diet:: Normal Diet Discharge Orders Discharge Orders: Discharge Order (Routine); Ordered 07/31/21 Ordered By: Ousmane Ortiz Other Ambulatory Orders: 14 Day Polysomnographic Technician (Routine) Timeframe: 1 Week Facility: [facility] - Location: Respiratory Therapy Ordered By: Ousmane Ortiz Discharge Data Discharge Date/Time-TO BE ENTERED AT DEPARTURE: 07/31/21 17:52 DS: Summary Time Spent with Patient providing and/or coordinating discharge services: Greater than 30 minutes Specific discharge activities: Rx, coordinating follow up IR intervention, education of patient and family Status at Discharge Functional status at discharge: independent ambulation Overall status at discharge: patient is progressing back to baseline Mental Status: mental status grossly normal Speech and Movement: speech and movement normal Mood: congruent mood Affect: normal affect Exam Narrative Exam Narrative: Met with the patient and his and his daughter. Patient seemed to be frustrated they felt like nothing was being done to move things along in terms of his work-up and evaluation of his lung and liver mass. I explained to him that a lot is being done behind the scenes. Fozia from case management has arranged for him to get an outpatient interventional radiology guided liver biopsy performed at [facility] on August 17 at 1:30 PM. I explained to him that his discharge has been held up because of his paroxysmal supraventricular tachycardia. He has been frustrated has not been allowed to get up and walk around freely on his own. He says he has no symptoms of palpitations no dizziness no lightheadedness. I suggested that we go for a walk while I monitor his pulse and his oxygen level with a amatory pulse oximeter and while he was hooked up to telemetry I asked the ICU nurses to monitor his heart rhythm. Patient ambulated from his room room 229 back into the ICU and then back to his room. Estimated distance 150 feet. Pulse oximetry remained 94 to 96% on room air. Heart rate was in the 80s to 90s and never went over 100. According to the ICU monitor he had some occasional PACs but no runs of PSVT or atrial fibrillation. No ventricular ectopy. Gait was steady. Lungs are clear to auscultation no wheezes rales or rhonchi Heart is regular rate and rhythm without appreciable murmur rub Extremities without peripheral edema. Psych Mental Status: mental status grossly normal Speech and Movement: speech and movement normal Mood: congruent mood Affect: normal affect DS: Data Vitals/I&O Vitals and I&O: Vital Signs Temperature 37.2 C 07/31/21 15:19 Temperature Source Tympanic 07/31/21 15:19 Pulse 131 H 07/31/21 15:46 Pulse Rhythm Regular 07/31/21 16:29 Pulse 87 07/30/21 17:30 Respiratory Rate 16 07/31/21 15:19 Respiratory Effort Non-Labored 07/31/21 16:29 Respiratory Depth Normal 07/31/21 16:29 Respiratory Pattern Normal 07/31/21 16:29 Blood Pressure 103/75 07/31/21 15:19 Blood Pressure Mean 79 07/30/21 16:01 Blood Pressure Position Supine 07/29/21 17:22 Pulse Oximetry 95 07/31/21 15:19 Oxygen Delivery Method Room Air 07/31/21 15:19 Oxygen Flow Rate 0 07/31/21 15:19 Pain Level 0 07/31/21 15:19 Comment 07/31/21 11:13 Intake & Output 07/30/21 07/31/21 07/31/21 23:59 11:59 23:59 Intake Total 200 / 210 480 / 480 Output Total 1550 / 3400 1350 / 2250 900 / 2250 Balance -1350 / -3190 -870 / -1770 -900 / -1770 Intake: Oral 200 / 200 480 / 480 Output: Urine 1550 / 3400 1350 / 2250 900 / 2250 Other: Urine Color Straw Yellow Yellow Urine Appearance Clear Clear Clear Urine Odor None Normal None Voiding Methods Urinal Toilet Toilet PFSH All Active Problems Hilar lymphadenopathy (Acute) Liver mass (Acute) Nonsustained paroxysmal supraventricular tachycardia (Acute) Pleuritic chest pain (Acute) Mass of left lung (Acute) Rotator cuff tear arthropathy of right shoulder (Acute) Cervical stenosis of spinal canal (Acute) C7 Spinal stenosis at L4-L5 level (Acute) Incisional hernia (Acute) Vitreous floaters (Acute) Hematospermia (Acute) Right inguinal hernia (Acute) Venous insufficiency (Acute) Hyperlipidemia (Acute) Diabetic nephropathies (Acute) Rotator cuff syndrome (Acute) Postherpetic trigeminal neuralgia (Acute) Ventral hernia (Acute) Ascending aorta dilation (Acute) Osteoarthritis of left knee (Chronic) Osteoarthritis of right knee (Acute) BPH w urinary obs/LUTS (Acute) Cervical radiculopathy at C8 (Chronic) History of knee surgery (Chronic) Bilateral knee surgeries as a teenager per Patient to remove cartilage Diabetic polyneuropathy associated with type 2 diabetes mellitus (Acute 02/11/17) Bilateral foot-drop (Acute 02/11/17) Hx of hepatitis (Acute) Pt states in the 1970's w/treatment recieved Insomnia (Chronic) History of cardiac catheterization (Chronic) 09/20/2016 History of venous thromboembolism (Acute) 1975 Following left knee surgery as a teenager Coronary artery disease (Chronic) Narcotic abuse (Chronic) Cocaine Mitral regurgitation (Chronic) COPD (chronic obstructive pulmonary disease) (Chronic) High cholesterol (Chronic) Diabetes mellitus (Chronic) Depression (Chronic) Medical History DDD (degenerative disc disease), lumbar Myocardial infarction NSTEMI 09/20/2016 Thoracic ascending aortic aneurysm Surgical History History of umbilical hernia repair Reports 2 surgeries estimates late 1990s-1999s Repair of inguinal hernia (02/25/17) Tear of left rotator cuff (08/09/18) s/p left RTC repair DOS: 09/07/18 Injected: 08/11/2018 Social History Smoking/Tobacco Use Status: Former Tobacco Use Tobacco: How many years used: 20 Smoking risk assessment performed?: Yes Alcohol Intake: current Alcohol Intake frequency: holidays/special occasions only Alcohol type: wine Drug use: Current Sobriety Substance use type: former substance user and crack/cocaine Details: Quit smoking 1997, states last used cocaine 09/18/16 after 10yr sober Current gender identity: male Do you feel safe at home: Yes Do you feel safe in your relationship?: Yes
== END 2021-07-31 17:52 | disposition home or self-care (01) ==
LOC: ER 16:21 → ICU 16:54 → MS 07-30 21:53
PROVIDERS: Admitting Provider Family Medicine; Emergency Provider Physician Assistant; PCP Family Medicine; Visit Provider Family Medicine
DX: I47.1 Supraventricular tachycardia (principal); R91.8 Other nonspecific abnormal finding of lung field; R16.0 Hepatomegaly, not elsewhere classified; R59.0 Localized enlarged lymph nodes; R07.81 Pleurodynia; J44.9 Chronic obstructive pulmonary disease, unspecified; I25.10 Atherosclerotic heart disease of native coronary artery without angina pectoris; E11.42 Type 2 diabetes mellitus with diabetic polyneuropathy; K43.2 Incisional hernia without obstruction or gangrene; E78.5 Hyperlipidemia, unspecified; Z79.84 Long term (current) use of oral hypoglycemic drugs; Z79.4 Long term (current) use of insulin; G47.00 Insomnia, unspecified; I73.9 Peripheral vascular disease, unspecified; I71.2 Thoracic aortic aneurysm, without rupture; M48.02 Spinal stenosis, cervical region; M54.12 Radiculopathy, cervical region; M48.061 Spinal stenosis, lumbar region without neurogenic claudication; M17.0 Bilateral primary osteoarthritis of knee; I87.8 Other specified disorders of veins; F14.11 Cocaine abuse, in remission; E78.00 Pure hypercholesterolemia, unspecified; F32.9 Major depressive disorder, single episode, unspecified; I25.2 Old myocardial infarction; I34.0 Nonrheumatic mitral (valve) insufficiency; Z86.718 Personal history of other venous thrombosis and embolism; M21.372 Foot drop, left foot; M21.371 Foot drop, right foot; N40.1 Benign prostatic hyperplasia with lower urinary tract symptoms; E11.21 Type 2 diabetes mellitus with diabetic nephropathy
CPT/HCPCS: 36415; 36416; 71275; 80048; 80053; 82962; 87635; 93005; 93306; 94640; 96360; 96361; 96372; 96374; 99285; 83036; 83735; 84443; 84484; 85025; 85610; 85730; 93010; 99217; 99223; 99226; G0378; J0131; J1644; J3490

== ENCOUNTER 2021-08-20 04:31 | Outpatient (CLI) | payer MEDICARE, SELFPAY ==
--- NOTE | 2021-11-23 08:31 | CER_ITS ---
Date of service: 11/23/21 Time of Service: 08:31 Cardiac Event Recorder Referring Provider:: Ousmane Ortiz Indications:: Supraventricular tachycardia Cardiac Event Note: This is a 14-day healthcare customer service which was performed from August 20 through September 17, 2021 Predominant rhythm was sinus with an average heart rate of 95. Minimum was 64, maximum 109 There were rare ventricular ectopic beats. There were several brief runs of nonsustained ventricular tachycardia. Some of these might have been supraventricular tachycardia with aberrancy There were very frequent atrial premature beats. There were multiple self- limited atrial runs. The longest run lasted 1 minute and 31 seconds at a rate of 153 No patient symptoms were reported
== END 2021-08-20 04:32 | disposition home or self-care (01) ==
LOC: RT 04:31
PROVIDERS: PCP Family Medicine; Visit Provider Internal Medicine
DX: I47.9 Paroxysmal tachycardia, unspecified (principal)
CPT/HCPCS: 93246